=== PATIENT | male | born 1980 | race Caucasian/White ===

== ENCOUNTER 2017-06-02 02:28 | Emergency (ER) | payer SELFPAY ==
--- NOTE | 2017-06-02 02:52 | PDOC ---
History of Present Illness - General Stated Complaint: VOMITING Time Seen by Provider: 06/02/17 02:49 - History of Present Illness Initial Comments: 06/02/17 03:59 Patient is a 36-year-old male with past medical history of alcohol abuse, who presents to emergency department today complaining of nausea and vomiting. Patient states that he has been drinking heavily for the past 3 weeks and he tried to quit two days ago. He states that when he tried to quit he became very sweaty and had the shakes. To help relieve his symptoms he had tequila. His last drink was approximately an hour before arrival to the emergency department. He had one shot of tequila at that time. Admits to nausea, dry heaves, vomiting, feeling anxious and shaking. Denies hematemesis recent illness , diarrhea, constipation. Patient would like to quit drinking. Past History - Travel Traveled outside of the country in the last 30 days: No Close contact w/someone who was outside of country & ill: No - Past Medical History Allergies/Adverse Reactions: Allergies Allergy/AdvReac Type Severity Reaction Status Date / Time No Known Allergies Allergy Verified 06/02/17 02:59 Home Medications: Ambulatory Orders NK [No Known Home Medication] 04/30/16 Anemia: No Asthma: No Cancer: No Cardiac Disorders: No CVA: No COPD: No CHF: No Dementia: No Diabetes: No GI Disorders: No Disorders: No HTN: No Hypercholesterolemia: No Kidney Stones: No Liver Disease: No Seizures: No Thyroid Disease: No - Surgical History Abdominal Surgery: No Appendectomy: No Cardiac Surgery: No Cholecystectomy: No Lung Surgery: No Neurologic Surgery: No Orthopedic Surgery: No - Reproductive History Testicular Surgery: No - Immunization History Immunization Up to Date: Yes - Suicide/Smoking/Psychosocial Hx Smoking History: Never smoked Have you smoked in the past 12 months: No Hx Alcohol Use: Yes Drug/Substance Use Hx: No Substance Use Type: Alcohol Hx Substance Use Treatment: Yes Review of Systems - Review of Systems Able to Perform ROS?: Yes Comments:: 06/02/17 04:02 CONSTITUTIONAL: Absent: fever, chills, diaphoresis, generalized weakness, malaise, loss of appetite HEENT: Absent: rhinorrhea, nasal congestion, throat pain, throat swelling, difficulty swallowing, mouth swelling, ear pain, eye pain, visual Changes CARDIOVASCULAR: Absent: chest pain, loss of consciousness, palpitations, irregular heart rate, peripheral edema RESPIRATORY: Absent: cough, shortness of breath, dyspnea with exertion, orthopnea, wheezing, stridor, hemoptysis GASTROINTESTINAL: Present: abdominal pain, nausea, vomiting Absent: abdominal distension, nausea , vomiting, diarrhea, constipation, melena, hematochezia GENITOURINARY: Absent: dysuria, frequency, urgency, hesitancy, hematuria, flank pain, genital pain MUSCULOSKELETAL: Absent: myalgia, arthralgia, joint swelling SKIN: Absent: rash, itching, pallor NEUROLOGIC: Absent: headache, focal weakness or paresthesias, dizziness, unsteady gait, seizure, mental status changes, bladder or bowel incontinence PSYCHIATRIC: Present: anxiety Absent: depression, suicidal or homicidal ideation, hallucinations. Is the patient limited Kazakh proficient: No *Physical Exam - Physical Exam Comments: 06/02/17 04:02 GENERAL: Well developed, well nourished. Awake and alert. anxious on exam, shaking. HEENT: Normocephalic, atraumatic. PERRLA, EOMI. No conjunctival pallor. Sclera are non- icteric. Moist mucous membranes. Oropharynx is clear. NECK: Supple. Full ROM. No JVD. Carotid pulses 2+ and symmetric, without bruits. No thyromegaly. No lymphadenopathy. CARDIOVASCULAR: Regular rate and rhythm. No murmurs, rubs, or gallops. Distal pulses are 2+ and symmetric. PULMONARY: No evidence of respiratory distress. Lungs clear to auscultation bilaterally. No wheezing, rales or rhonchi. ABDOMINAL: Soft. diffuse tenderness with no focal findings. Non-distended. No rebound or guarding. No organomegaly. Normoactive bowel sounds. MUSCULOSKELETAL Normal range of motion at all joints. No bony deformities or tenderness. No CVA tenderness. EXTREMITIES: Tremulous with moderate shakiness of hands. No Asterixis. No cyanosis. No clubbing. No edema. No calf tenderness. SKIN: Palms slightly sweaty. Warm and dry. Normal capillary refill. No rashes. No jaundice. NEUROLOGICAL: Alert, awake, appropriate. Cranial nerves 2-12 intact. No deficits to light touch and temperature in face, upper extremities and lower extremities. No motor deficits in the in face, upper extremities and lower extremities. Normoreflexic in the upper and lower extremities. Normal speech. Toes are down- going bilaterally. Gait is normal without ataxia. PSYCHIATRIC: Cooperative. Good eye contact. Appropriate mood and affect. ED Treatment Course - LABORATORY CBC & Chemistry Diagram: 06/02/17 02:50 06/02/17 02:50 Medical Decision Making - Medical Decision Making 06/02/17 03:44 Patient is a 36-year-old male past medical history of alcohol abuse, who presents to the emergency department today for alcohol withdrawal. We will control symptoms at this time. We'll also draw basic labs to rule out potential pancreatitis, or other infectious causes. 1.CBC, CMP, alcohol level, UA, U tox 2.fluids, Zofran, Pepcid, Librium 50mg 3.reevaluate 06/02/17 04:21 Lab work unremarkable. Lipase within normal limits. No leukocytosis. Alcohol level is 53 at this time. Pt. appears to be resting comfortably in the ED 06/02/17 06:01 Called to pt. bedside. Pt. states that he feels more anxious and is still tremulous despite 50 of librium. Will give another 50 of librium PO and re- evaluate. *DC/Admit/Observation/Transfer - Discharge Dispostion Condition at time of disposition: Fair - Referrals Referrals: ON STAFF,NOT [Primary Care Provider] - - Patient Instructions - Post Discharge Activity CIWA Score - CIWA Score Nausea/Vomitin Muscle Tremors: 3 Anxiety: 2 Agitation: 0-Normal Activity Paroxysmal Sweats: 2 Orientation: 0-Oriented Tacttile Disturbances: 1-Very Mild Itch/Numbness Auditory Disturbances: 0-None Visual Disturbances: 0-None Headache: 2-Mild CIWA-Ar Total Score: 16
[2017-06-02] MEDS ORDERED: SODIUM CHLORIDE 1,000 ML IV STA (02:53)
[2017-06-02] MEDS ORDERED: ONDANSETRON 4 MG/2 ML VIAL IVPUSH ONE (02:53)
[2017-06-02] MEDS ORDERED: FAMOTIDINE IV 20 MG/12 ML VIAL IVPB ONE (02:54)
[2017-06-02 02:59] VITALS: BMI 28.2
[2017-06-02] MEDS ORDERED: ONDANSETRON 4 MG/2 ML VIAL ONE (03:04)
[2017-06-02] MEDS ORDERED: FAMOTIDINE 20 MG/50 ML IVPB 20 MG/50 ML MG IVPB ONE (03:04)
[2017-06-02 03:06] LABS: BASO % 0.4 % (0-2.0); EOS % 0.4 % (0-4.5); HEMATOCRIT 45.5 % (35.4-49); HEMOGLOBIN 15.6 GM/dL (11.7-16.9); LYMPH % 31.9 % (8-40); MCH 31.9 pg (25.7-33.7); MCHC 34.2 g/dl (32.0-35.9); MEAN CELL VOLUME 93.4 fl (80-96); MEAN PLT VOLUME 8.9 fl (7.5-11.1); MONO % 10.8 % (3.8-10.2); NEUT % 56.5 % (42.8-82.8); PLATELET COUNT 106 K/MM3 (134-434); RBC 4.87 M/mm3 (4.00-5.60); RDW 13.7 % (11.9-15.9); WHITE BLOOD COUNT 4.5 K/mm3 (4.0-10.0)
[2017-06-02 03:18] LABS: PROTHROMBIN TIME (PATIENT) 11.3 SEC (9.98-11.88)
[2017-06-02] MEDS ORDERED: chlordiazePOXIDE HCL 25 MG CAPSULE PO ONE ×2 (03:18→06:15)
[2017-06-02 03:28] LABS: ALBUMIN 4.8 g/dl (3.4-5.0); ANION GAP 15 (8-16); BILIRUBIN,TOTAL 1.6 mg/dL (0.2-1.0); BLOOD UREA NITROGEN 8 mg/dL (7-18); CHLORIDE 97 mmol/L (98-107); CO2 26 mmol/L (21-32); CREATININE 0.9 mg/dL (0.7-1.3); GLUCOSE,RANDOM 116 mg/dL (74-106); POTASSIUM 3.2 mmol/L (3.5-5.1); SGOT/AST 70 U/L (15-37); SGPT/ALT 67 U/L (12-78); SODIUM 138 mmol/L (136-145); TOT PROT 9.1 g/dl (6.4-8.2)
[2017-06-02 03:29] LABS: ALK PHOS 86 U/L (45-117)
--- NOTE | 2017-06-02 04:06 | PDOC ---
*Physical Exam - Vital Signs Last Vital Signs Temp Pulse Resp BP Pulse Ox 98.8 F 104 H 22 145/92 100 06/02/17 02:53 06/02/17 02:53 06/02/17 02:53 06/02/17 02:53 06/02/17 02:53 ED Treatment Course - LABORATORY CBC & Chemistry Diagram: 06/02/17 02:50 06/02/17 02:50 - ADDITIONAL ORDERS Additional order review: Laboratory Results 06/02/17 06/02/17 06/02/17 02:50 02:50 02:50 PT with INR INR Sodium 138 Potassium 3.2 L Chloride 97 L Carbon Dioxide 26 Anion Gap 15 BUN 8 D Creatinine 0.9 Creat Clearance w eGFR > 60 Random Glucose 116 H Calcium 9.0 Total Bilirubin 1.6 H D AST 70 H D ALT 67 D Alkaline Phosphatase 86 Total Protein 9.1 H D Albumin 4.8 D Lipase 201 Alcohol, Quantitative 53.4 H* 06/02/17 02:50 PT with INR 11.30 INR 1.00 Sodium Potassium Chloride Carbon Dioxide Anion Gap BUN Creatinine Creat Clearance w eGFR Random Glucose Calcium Total Bilirubin AST ALT Alkaline Phosphatase Total Protein Albumin Lipase Alcohol, Quantitative 06/02/17 02:50 RBC 4.87 MCV 93.4 MCHC 34.2 RDW 13.7 MPV 8.9 Neutrophils % 56.5 Lymphocytes % 31.9 Monocytes % 10.8 H D Eosinophils % 0.4 D Basophils % 0.4 - Medications Given in the ED: ED Medications Discontinued Medications Generic Name Dose Route Start Last Admin Trade Name Freq PRN Reason Stop Dose Admin Famotidine 20 mg in 12 mls @ 144 mls/hr 06/02/17 02:54 06/02/17 03:09 Pepcid 20 Mg/12 Ml Push IVPB 06/02/17 02:58 144 mls/hr ONCE ONE Administration Sodium Chloride 1,000 mls @ 1,000 mls/hr 06/02/17 02:53 06/02/17 03:09 Normal Saline - IV 06/02/17 03:52 1,000 mls/hr ASDIR STA Administration Ondansetron HCl 4 mg 06/02/17 02:53 06/02/17 03:09 Zofran Injection IVPUSH 06/02/17 02:54 4 mg ONCE ONE Administration Medical Decision Making - Medical Decision Making 06/02/17 04:05 Pt seen by the Advanced Practice Provider under my direct supervision Ancillary studies reviewed I agree with plan as outlined by the Advanced Practice Provider MARYJANE Robbins *DC/Admit/Observation/Transfer - Discharge Dispostion Condition at time of disposition: Fair - Referrals Referrals: ON STAFF,NOT [Primary Care Provider] - - Patient Instructions - Post Discharge Activity
[2017-06-02] MEDS ORDERED: chlordiazePOXIDE HCL 25 MG CAPSULE ONE ×2 (04:38→06:17)
[2017-06-02 05:35] LABS: URINE APPEARANCE CLEAR; URINE BILIRUBIN NEGATIVE (NEGATIVE); URINE BLOOD 1+ (NEGATIVE); URINE COLOR DKYELLOW; URINE GLUCOSE (UA) NEGATIVE (NEGATIVE); URINE KETONE 2+ (NEGATIVE); URINE LEUK ESTERASE NEGATIVE (NEGATIVE); URINE NITRITE NEGATIVE (NEGATIVE); URINE UROBILINOGEN 4.0 E.U/dl mg/dL (0.2-1.0)
[2017-06-02 05:40] LABS: URINE PROTEIN 2+ (NEGATIVE)
[2017-06-02 05:41] LABS: URINE MUCUS RARE
[2017-06-02 05:47] LABS: COCAINE, UR NEGATIVE ng/ml (CUTOFF=300); METHADONE, UR NEGATIVE ng/ml (CUTOFF=300); OPIATES, URI NEGATIVE ng/ml (CUTOFF=300); PHENCYCLIDINE,URINE NEGATIVE ng/ml (CUTOFF=25); URINE AMPHETAMINES NEGATIVE ng/ml (CUTOFF=500); URINE BARBITURATES NEGATIVE ng/ml (CUTOFF=200); URINE BENZODIAZEPINES NEGATIVE ng/ml (CUTOFF=200)
--- NOTE | 2017-06-02 07:59 | PDOC ---
ED Treatment Course - LABORATORY CBC & Chemistry Diagram: 06/02/17 02:50 06/02/17 02:50 - ADDITIONAL ORDERS Additional order review: Laboratory Results 06/02/17 06/02/17 06/02/17 05:17 05:17 02:50 PT with INR INR Sodium Potassium Chloride Carbon Dioxide Anion Gap BUN Creatinine Creat Clearance w eGFR Random Glucose Calcium Total Bilirubin AST ALT Alkaline Phosphatase Total Protein Albumin Lipase 201 Urine Color Dkyellow Urine Appearance Clear Urine pH 6.0 Ur Specific [place] 1.027 Urine Protein 2+ H Urine Glucose (UA) Negative Urine Ketones 2+ H Urine Blood 1+ H Urine Nitrite Negative Urine Bilirubin Negative Urine Urobilinogen 4.0 e.u/dl Ur Leukocyte Esterase Negative Urine WBC (Auto) 1 Urine RBC (Auto) 16 Urine Mucus Rare Opiates Screen Negative Methadone Screen Negative Barbiturate Screen Negative Phencyclidine Screen Negative Ur Amphetamines Screen Negative MDMA (Ecstasy) Screen Negative Benzodiazepines Screen Negative Cocaine Screen Negative U Marijuana (THC) Screen Negative Alcohol, Quantitative 06/02/17 06/02/17 06/02/17 02:50 02:50 02:50 PT with INR 11.30 INR 1.00 Sodium 138 Potassium 3.2 L Chloride 97 L Carbon Dioxide 26 Anion Gap 15 BUN 8 D Creatinine 0.9 Creat Clearance w eGFR > 60 Random Glucose 116 H Calcium 9.0 Total Bilirubin 1.6 H D AST 70 H D ALT 67 D Alkaline Phosphatase 86 Total Protein 9.1 H D Albumin 4.8 D Lipase Urine Color Urine Appearance Urine pH Ur Specific [place] Urine Protein Urine Glucose (UA) Urine Ketones Urine Blood Urine Nitrite Urine Bilirubin Urine Urobilinogen Ur Leukocyte Esterase Urine WBC (Auto) Urine RBC (Auto) Urine Mucus Opiates Screen Methadone Screen Barbiturate Screen Phencyclidine Screen Ur Amphetamines Screen MDMA (Ecstasy) Screen Benzodiazepines Screen Cocaine Screen U Marijuana (THC) Screen Alcohol, Quantitative 53.4 H* 06/02/17 02:50 RBC 4.87 MCV 93.4 MCHC 34.2 RDW 13.7 MPV 8.9 Neutrophils % 56.5 Lymphocytes % 31.9 Monocytes % 10.8 H D Eosinophils % 0.4 D Basophils % 0.4 - Medications Given in the ED: ED Medications Discontinued Medications Generic Name Dose Route Start Last Admin Trade Name Freq PRN Reason Stop Dose Admin Chlordiazepoxide HCl 50 mg 06/02/17 03:18 06/02/17 04:42 Librium - PO 06/02/17 03:19 50 mg ONCE ONE Administration Chlordiazepoxide HCl 50 mg 06/02/17 06:15 06/02/17 06:21 Librium - PO 06/02/17 06:16 50 mg ONCE ONE Administration Famotidine 20 mg in 12 mls @ 144 mls/hr 06/02/17 02:54 06/02/17 03:09 Pepcid 20 Mg/12 Ml Push IVPB 06/02/17 02:58 144 mls/hr ONCE ONE Administration Sodium Chloride 1,000 mls @ 1,000 mls/hr 06/02/17 02:53 06/02/17 03:09 Normal Saline - IV 06/02/17 03:52 1,000 mls/hr ASDIR STA Administration Ondansetron HCl 4 mg 06/02/17 02:53 06/02/17 03:09 Zofran Injection IVPUSH 06/02/17 02:54 4 mg ONCE ONE Administration Progress Note - Progress Note Progress Note: I have received report from MARYJANE Robbins regarding this patient. Pt's initial chief complaint: nausea, vomiting, anxiety and shaking Pt's work up completed prior to sign out: labs, EKG Pt treatment given from prior staff: IV fluids, zofran, librium Pt plan to be completed: reassess Dispo: admit vs [facility] Medical Decision Making - Medical Decision Making A/p: 36 y/o male with PMH ETOH abuse c/o nausea, vomiting, anxiety and shaking. Pt was initially evaluated by MARYJANE Robbins. Gave 2nd dose of librium and must reassess. Admit for withdrawal vs discharge to [facility]. Patient states he feels better and is only mildly tremulous. Wants to go to [facility]. Gait is steady. Vital signs ok. [facility] with [facility] they do have a bed and will accept him. Will discharge and have security take him to [facility]. *DC/Admit/Observation/Transfer Diagnosis at time of Disposition: Alcohol abuse - Discharge Dispostion Disposition: HOME Condition at time of disposition: Improved - Referrals Referrals: ON STAFF,NOT [Primary Care Provider] - - Patient Instructions Printed Discharge Instructions: DI for Alcohol Abuse - Post Discharge Activity
--- NOTE | 2017-06-02 09:57 | EKG ---
Test Reason : Blood Pressure : / mmHG Vent. Rate : 080 BPM Atrial Rate : 080 BPM P-R Int : 192 ms QRS Dur : 094 ms QT Int : 386 ms P-R-T Axes : 050 060 046 degrees QTc Int : 445 ms NORMAL SINUS RHYTHM NORMAL ECG WHEN COMPARED WITH ECG OF 29-JUL-2016 11:43, NO SIGNIFICANT CHANGE WAS FOUND Confirmed by ANEUDY GONZALES MD ([id number]) on 06/02/2017 9:57:30 AM Referred By: Confirmed By:ANEUDY GONZALES MD
[2017-06-02 10:01] VITALS: BP 133/83; PULSE 84; TEMP 97
== END 2017-06-02 11:47 | disposition home or self-care (01) ==
LOC: SUPCPDRO 02:28 → JER 02:28
PROC: 3E033GC Introduction of Other Therapeutic Substance into Peripheral Vein, Percutaneous Approach (ICD-10-PCS; principal; 2017-06-02)
PROC: 3E0337Z Introduction of Electrolytic and Water Balance Substance into Peripheral Vein, Percutaneous Approach (ICD-10-PCS; 2017-06-02)
DX: F10.10 Alcohol abuse, uncomplicated (principal)
CPT/HCPCS: 36415; 80053; 80307; 81003; 81015; 83690; 85025; 85610; 93005; 93010; 99283-25

== ENCOUNTER 2017-07-18 23:14 | Emergency (ER) | payer SELFPAY ==
[2017-07-18 23:28] VITALS: BP 174/98; TEMP 98.1; BMI 28.2
--- NOTE | 2017-07-19 00:48 | PDOC ---
History of Present Illness - General Chief Complaint: Nausea/Vomiting Stated Complaint: VOMITING Time Seen by Provider: 07/19/17 00:36 History Source: Patient Exam Limitations: No Limitations - History of Present Illness Initial Comments: CHIEF COMPLAINT: 36 y/o afebrile male with PMH ETOH abuse c/o nausea, vomiting and shaking. HISTORY OF PRESENT ILLNESS: the patient states he's been drinking every day for 2 weeks. This morning, after 2 beers, he began vomiting and having abdominal pain. He was seen at [facility] where they gave him zofran and discharged him. He states he went home and tried to have soup and vomited again. He then drank another beer to try to stop his shakes. He denies fever, JERRY, CP, SOB, hematuria, dysuria. Vital signs on arrival are notable for pulse of 125. REVIEW OF SYSTEMS: GENERAL/CONSTITUTIONAL: No fever/chills. No weakness. No weight change. HEAD, EYES, EARS, NOSE AND THROAT: No change in vision. No ear pain or discharge. No sore throat. CARDIOVASCULAR: No chest pain or shortness of breath. RESPIRATORY: No cough, wheezing, or hemoptysis. GASTROINTESTINAL: +abdominal pain, nausea, vomiting. GENITOURINARY: No dysuria, frequency, or change in urination. MUSCULOSKELETAL: No joint or muscle swelling or pain. No neck or back pain. SKIN: No rash or easy bruising. NEUROLOGIC: +shaking. No headache, vertigo, loss of consciousness, or loss of sensation. PHYSICAL EXAM: GENERAL: The patient is awake, alert, and fully oriented, in no acute distress. he is tremulous HEAD: Normal with no signs of trauma. ENT: Pupils equal, round and reactive to light, extraocular movements intact, sclera anicteric, conjunctiva clear. Neck supple. LUNGS: Clear to auscultation bilaterally. Normal excursion. No respiratory distress or use of accessory muscles. CV: RRR, S1/S2, no MRG. Cap refill < 2 sec. ABDOMEN: Soft, non-distended, diffusely TTP without focal tenderness. No rebound, guarding or rigidity. EXTREMITIES: Normal range of motion, no edema. NEUROLOGICAL: Tremulous upper extremities. Normal speech, normal gait. CN II- XII grossly intact. PSYCH: Normal mood, normal affect. SKIN: Warm, dry, normal turgor, no rashes or lesions noted. Past History - Past Medical History Allergies/Adverse Reactions: Allergies Allergy/AdvReac Type Severity Reaction Status Date / Time No Known Allergies Allergy Verified 07/18/17 23:25 Home Medications: Ambulatory Orders NK [No Known Home Medication] 04/30/16 Anemia: No Asthma: No Cancer: No Cardiac Disorders: No CVA: No COPD: No CHF: No Dementia: No Diabetes: No GI Disorders: No Disorders: No HTN: No Hypercholesterolemia: No Kidney Stones: No Liver Disease: No Seizures: No Thyroid Disease: No Other medical history: Pt denies - Surgical History Abdominal Surgery: No Appendectomy: No Cardiac Surgery: No Cholecystectomy: No Lung Surgery: No Neurologic Surgery: No Orthopedic Surgery: No - Reproductive History Testicular Surgery: No - Immunization History Immunization Up to Date: Yes - Suicide/Smoking/Psychosocial Hx Smoking History: Never smoked Have you smoked in the past 12 months: No Information on smoking cessation initiated: No Hx Alcohol Use: Yes Drug/Substance Use Hx: No Substance Use Type: Alcohol Hx Substance Use Treatment: Yes *Physical Exam - Vital Signs Last Vital Signs Temp Pulse Resp BP Pulse Ox 98.1 F 125 H 20 174/98 98 07/18/17 23:25 07/18/17 23:25 07/18/17 23:25 07/18/17 23:25 07/18/17 23:25 ED Treatment Course - LABORATORY CBC & Chemistry Diagram: 07/19/17 01:22 07/19/17 01:22 Medical Decision Making - Medical Decision Making A/P: 36 y/o male, known alcoholic, c/o nausea, vomiting and shaking today. Plan is as follows: 1. Labs 2. UA/utox, ETOH 3. IV fluids 4. IV zofran, pepcid 5. PO librium Labs ok. Patient had second dose of librium. No longer shaking. He states he feels better. Will discharge to home. Pt instructed to stop drinking. Suggested he return to the ER with any worsening or concerning symptoms. The patient verbalizes understanding of all instructions, has no further questions and is awaiting discharge. *DC/Admit/Observation/Transfer Diagnosis at time of Disposition: Alcohol dependence with uncomplicated withdrawal - Discharge Dispostion Disposition: HOME Condition at time of disposition: Improved - Referrals - Patient Instructions Printed Discharge Instructions: DI for Alcoholic Gastritis, [place] Diet Additional Instructions: Discharge Instructions: -Eat bland food and avoid drinking alcohol until you are feeling better -Return to the ER immediately with any worsening or concerning symptoms Print Language: TURKMEN - Post Discharge Activity
[2017-07-19] MEDS ORDERED: ONDANSETRON 4 MG/2 ML VIAL IVPUSH ONE (00:50)
[2017-07-19] MEDS ORDERED: SODIUM CHLORIDE 1,000 ML IV STA (00:50)
[2017-07-19] MEDS ORDERED: FAMOTIDINE IV 20 MG/12 ML VIAL IVPUSH ONE (00:51)
[2017-07-19] MEDS ORDERED: chlordiazePOXIDE HCL 25 MG CAPSULE PO ONE ×2 (01:00→03:14)
[2017-07-19] MEDS ORDERED: ONDANSETRON 4 MG/2 ML VIAL ONE (01:06)
[2017-07-19] MEDS ORDERED: chlordiazePOXIDE HCL 25 MG CAPSULE ONE ×2 (01:06→03:58)
[2017-07-19] MEDS ORDERED: FAMOTIDINE 20 MG/50 ML IVPB 20 MG/50 ML MG IVPB ONE (01:06)
[2017-07-19 01:28] LABS: BASO % 0.7 % (0-2.0); EOS % 0.6 % (0-4.5); HEMATOCRIT 42.8 % (35.4-49); LYMPH % 12.2 % (8-40); MCH 33.1 pg (25.7-33.7); MEAN CELL VOLUME 94.7 fl (80-96); MEAN PLT VOLUME 9.1 fl (7.5-11.1); MONO % 12.4 % (3.8-10.2); NEUT % 74.1 % (42.8-82.8); PLATELET COUNT 87 K/MM3 (134-434); RBC 4.52 M/mm3 (4.00-5.60); RDW 15.3 % (11.9-15.9); WHITE BLOOD COUNT 3.5 K/mm3 (4.0-10.0)
--- NOTE | 2017-07-19 01:39 | PDOC ---
*Physical Exam - Vital Signs Last Vital Signs Temp Pulse Resp BP Pulse Ox 98.1 F 125 H 20 174/98 98 07/18/17 23:25 07/18/17 23:25 07/18/17 23:25 07/18/17 23:25 07/18/17 23:25 ED Treatment Course - LABORATORY CBC & Chemistry Diagram: 07/19/17 01:22 07/19/17 01:22 - ADDITIONAL ORDERS Additional order review: 07/19/17 01:22 RBC 4.52 MCV 94.7 MCHC 35.0 RDW 15.3 D MPV 9.1 Neutrophils % 74.1 D Lymphocytes % 12.2 D Monocytes % 12.4 H Eosinophils % 0.6 Basophils % 0.7 - Medications Given in the ED: ED Medications Discontinued Medications Generic Name Dose Route Start Last Admin Trade Name Farhatq PRN Reason Stop Dose Admin Chlordiazepoxide HCl 50 mg 07/19/17 01:00 07/19/17 01:28 Librium - PO 07/19/17 01:01 50 mg ONCE ONE Administration Famotidine 20 mg in 12 mls @ 144 mls/hr 07/19/17 00:51 07/19/17 01:29 Pepcid 20 Mg/12 Ml Push IVPUSH 07/19/17 00:55 144 mls/hr ONCE ONE Administration Ondansetron HCl 4 mg 07/19/17 00:50 07/19/17 01:29 Zofran Injection IVPUSH 07/19/17 00:51 4 mg ONCE ONE Administration Medical Decision Making - Medical Decision Making 07/19/17 01:39 agree with care from MARYJANE Villar *DC/Admit/Observation/Transfer Diagnosis at time of Disposition: Alcohol dependence with uncomplicated withdrawal - Discharge Dispostion Disposition: HOME Condition at time of disposition: Improved - Referrals - Patient Instructions Printed Discharge Instructions: Peculiar Diet, DI for Alcoholic Gastritis Additional Instructions: Discharge Instructions: -Eat bland food and avoid drinking alcohol until you are feeling better -Return to the ER immediately with any worsening or concerning symptoms Print Language: BURUNDIAN - Post Discharge Activity
[2017-07-19 01:54] LABS: ALBUMIN 4.6 g/dl (3.4-5.0); ANION GAP 13 (8-16); BILIRUBIN,TOTAL 1.2 mg/dL (0.2-1.0); BLOOD UREA NITROGEN 6 mg/dL (7-18); CALCIUM 9.3 mg/dL (8.5-10.1); CHLORIDE 96 mmol/L (98-107); CO2 30 mmol/L (21-32); CREATININE 0.8 mg/dL (0.7-1.3); GLUCOSE,RANDOM 93 mg/dL (74-106); POTASSIUM 3.3 mmol/L (3.5-5.1); SGOT/AST 99 U/L (15-37); SGPT/ALT 90 U/L (12-78); SODIUM 139 mmol/L (136-145); TOT PROT 8.8 g/dl (6.4-8.2)
[2017-07-19 01:55] LABS: ALK PHOS 88 U/L (45-117)
[2017-07-19 01:59] LABS: LIPASE 290 U/L (73-393)
[2017-07-19] MEDS ORDERED: POTASSIUM CHLORIDE TABS 20 MEQ TABLET.ER (FP) PO ONE ×2 (02:31→02:43)
[2017-07-19 06:43] LABS: URINE APPEARANCE CLEAR; URINE BILIRUBIN NEGATIVE (NEGATIVE); URINE BLOOD NEGATIVE (NEGATIVE); URINE COLOR YELLOW; URINE GLUCOSE (UA) NEGATIVE (NEGATIVE); URINE KETONE 1+ (NEGATIVE); URINE LEUK ESTERASE NEGATIVE (NEGATIVE); URINE NITRITE NEGATIVE (NEGATIVE); URINE PROTEIN NEGATIVE (NEGATIVE); URINE UROBILINOGEN 4.0 E.U/dl mg/dL (0.2-1.0)
[2017-07-19 06:48] VITALS: PULSE 75
[2017-07-19 06:55] LABS: COCAINE, UR NEGATIVE ng/ml (CUTOFF=300); METHADONE, UR NEGATIVE ng/ml (CUTOFF=300); OPIATES, URI NEGATIVE ng/ml (CUTOFF=300); PHENCYCLIDINE,URINE NEGATIVE ng/ml (CUTOFF=25); URINE AMPHETAMINES NEGATIVE ng/ml (CUTOFF=500); URINE BARBITURATES NEGATIVE ng/ml (CUTOFF=200); URINE BENZODIAZEPINES POSITIVE ng/ml (CUTOFF=200)
== END 2017-07-19 07:01 | disposition home or self-care (01) ==
LOC: JER 23:14
PROC: 3E033GC Introduction of Other Therapeutic Substance into Peripheral Vein, Percutaneous Approach (ICD-10-PCS; principal; 2017-07-18)
PROC: 3E033GC Introduction of Other Therapeutic Substance into Peripheral Vein, Percutaneous Approach (ICD-10-PCS; 2017-07-18)
DX: K29.20 Alcoholic gastritis without bleeding (principal); F10.230 Alcohol dependence with withdrawal, uncomplicated
CPT/HCPCS: 36415; 80053; 80307; 81003; 83690; 85025; 99282-25; J7030

== ENCOUNTER 2018-03-26 07:37 | Inpatient (IN) | payer OTHER ==
[2018-03-26] MEDS ORDERED: ONDANSETRON 4 MG/2 ML VIAL IVPUSH ONE (08:11)
[2018-03-26] MEDS ORDERED: SODIUM CHLORIDE 0.9% 1000 ML INFUS.BAG IV ONE (08:11)
[2018-03-26] MEDS ORDERED: ACETAMINOPHEN 1000 MG/100 ML VIAL (NON FORMULARY) IVPB ONE (08:11)
[2018-03-26] MEDS ORDERED: ONDANSETRON 4 MG/2 ML VIAL ONE (08:35)
[2018-03-26] MEDS ORDERED: ACETAMINOPHEN INJECTION 100 ML IVPB ONE (08:35)
--- NOTE | 2018-03-26 08:36 | PDOC ---
History of Present Illness - General Chief Complaint: Nausea/Vomiting Stated Complaint: Nausea/Vomiting Time Seen by Provider: 03/26/18 08:11 - History of Present Illness Initial Comments: 03/26/18 09:35 37 years old past medical history significant for alcohol abuse presents to the emergency department with 2 day history of epigastric discomfort nausea vomiting and inability to tolerate fluids. Symptoms started yesterday evening try to drink one beer this morning but was unable to alleviate his symptoms began to feel diaphoretic tremulous. Positive history of withdrawal with hallucinations in the past. Patient is interested in detox after this illness Symptoms are persistent concent moderate in severity with no alleviating factors. Positive history of same in the past Past History - Past Medical History Allergies/Adverse Reactions: Allergies Allergy/AdvReac Type Severity Reaction Status Date / Time No Known Allergies Allergy Verified 07/18/17 23:25 Home Medications: Ambulatory Orders NK [No Known Home Medication] 04/30/16 Anemia: No Asthma: No Cancer: No Cardiac Disorders: No CVA: No COPD: No CHF: No Dementia: No Diabetes: No GI Disorders: No Disorders: No HTN: No Hypercholesterolemia: No Kidney Stones: No Liver Disease: No Seizures: No Thyroid Disease: No - Surgical History Abdominal Surgery: No Appendectomy: No Cardiac Surgery: No Cholecystectomy: No Lung Surgery: No Neurologic Surgery: No Orthopedic Surgery: No - Reproductive History Testicular Surgery: No - Immunization History Immunization Up to Date: Yes - Suicide/Smoking/Psychosocial Hx Smoking History: Never smoked Have you smoked in the past 12 months: No Hx Alcohol Use: No Drug/Substance Use Hx: No Substance Use Type: Alcohol Hx Substance Use Treatment: Yes Review of Systems - Review of Systems Comments:: 03/26/18 09:35 ROS: A complete review of 10 out of 10 review of systems is taken and is negative apart from what is previously mentioned below and in the HPI. *Physical Exam - Vital Signs Last Vital Signs Temp Pulse Resp BP Pulse Ox 98.3 F 106 H 16 138/87 98 03/26/18 07:43 03/26/18 07:43 03/26/18 07:43 03/26/18 07:43 03/26/18 07:43 - Physical Exam Comments: 03/26/18 09:35 Vitals: Triage Vital signs reviewed General Appearance: no acute distress, well nourished well developed, Head: Atraumatic, Eyes: Pupils equal reactive round, extraocular movement intact Neck: Supple;No Nucal rigidity Chest Wall: Nontender Cardiac: Regular rate and rhythym, no murmurs, no rubs, no gallops, Lungs: Clear to auscultation bilateral, good air movement bilaterally, Abdomen: Soft, non distended, normal bowel sounds, non tender to palpation Extremities: Full range of motion to all extremities, no cyanosis, clubbing, or edema Skin: Warm and dry, no rashes or lesions, no rash, no petechiae Neuro: AOX3; Cranial Nerves 2-12 grossly intact, Strength intact to all extremities, Sensation intact to all extremities,gait normal, + hand tremors Psych: normal mood, normal affect ED Treatment Course - LABORATORY CBC & Chemistry Diagram: 03/26/18 08:57 03/26/18 08:57 Medical Decision Making - Medical Decision Making 03/26/18 15:55 History and examination consistent with viral GI illness complicated by acute alcohol withdrawal Status post IV fluids Zofran and Ativan for withdrawal patient feels much better. Patient initially in alcohol withdrawal with CIWA scale of 16 status post 1 mg Ativan 1 hour later on reevaluation CIWA scale of 8 Given nausea vomiting inability to tolerate fluids complicated by acute alcohol withdrawal requiring IV medications we'll admit to hospitalist for further management. Patient interested in detox. Please consider candidate for detox after medically stable. *DC/Admit/Observation/Transfer Diagnosis at time of Disposition: Alcohol dependence with uncomplicated withdrawal - Discharge Dispostion Condition at time of disposition: Fair Decision to Admit order: Yes - Referrals - Patient Instructions - Post Discharge Activity
[2018-03-26] MEDS ORDERED: FAMOTIDINE 20 MG/50 ML IVPB 20 MG/50 ML MG IVPB ONE (08:56)
[2018-03-26] MEDS ORDERED: LORazepam 2 MG/ML SDV VIAL ONE (09:06)
[2018-03-26 09:09] LABS: BASO % 0.5 % (0-2.0); EOS % 0.3 % (0-4.5); LYMPH % 13.4 % (8-40); MCH 32.4 pg (25.7-33.7); MCHC 34.1 g/dl (32.0-35.9); MEAN PLT VOLUME 9.3 fl (7.5-11.1); MONO % 7.3 % (3.8-10.2); NEUT % 78.5 % (42.8-82.8); PLATELET COUNT 93 K/MM3 (134-434); RBC 4.64 M/mm3 (4.00-5.60); RDW 13.7 % (11.9-15.9); WHITE BLOOD COUNT 4.6 K/mm3 (4.0-10.0)
[2018-03-26] MEDS: FAMOTIDINE 20 MG/50 ML IVPB 20 MG/50 ML MG IVPB SCH ×2 (09:12→21:36)
[2018-03-26 09:44] LABS: ALBUMIN 4.4 g/dl (3.4-5.0); ALK PHOS 101 U/L (45-117); ANION GAP 11 MMOL/L (8-16); BILIRUBIN,TOTAL 0.8 mg/dL (0.2-1); BLOOD UREA NITROGEN 7 mg/dL (7-18); CALCIUM 8.4 mg/dL (8.5-10.1); CHLORIDE 102 mmol/L (98-107); CO2 26 mmol/L (21-32); CREATININE 0.8 mg/dL (0.55-1.3); GLUCOSE,RANDOM 104 mg/dL (74-106); POTASSIUM 3.3 mmol/L (3.5-5.1); SGOT/AST 105 U/L (15-37); SGPT/ALT 101 U/L (13-61); SODIUM 139 mmol/L (136-145); TOT PROT 8.2 g/dl (6.4-8.2)
[2018-03-26] MEDS ORDERED: ACETAMINOPHEN 325 MG TABLET (FP) PO PRN (16:55)
[2018-03-26] MEDS ORDERED: ONDANSETRON 4 MG/2 ML VIAL IVPUSH PRN (16:55)
--- NOTE | 2018-03-26 17:00 | HP ---
Admitting History and Physical - Primary Care Physician PCP: Chanelle Manzano - Admission History of Present Illness: 37 years old past medical history significant for alcohol abuse presents to the emergency department with 2 day history of epigastric discomfort nausea vomiting and inability to tolerate fluids. Symptoms started yesterday evening try to drink one beer this morning but was unable to alleviate his symptoms began to feel diaphoretic tremulous. wants to go for detox - Past Medical History Psych: Yes: Addictions - Past Surgical History Past Surgical History: Yes: None - Smoking History Smoking history: Never smoked Have you smoked in the past 12 months: No - Alcohol/Substance Use Hx Alcohol Use: No History of Substance Use: reports: None - Social History ADL: Independent History of Recent Travel: No Home Medications - Allergies Allergies/Adverse Reactions: Allergies Allergy/AdvReac Type Severity Reaction Status Date / Time No Known Allergies Allergy Verified 07/18/17 23:25 - Home Medications Home Medications: Ambulatory Orders NK [No Known Home Medication] 04/30/16 Family Disease History - Family Disease History Family Disease History: Heart Disease: Father (ALCOHOL), Other: Father, Mother ( alcohol) Review of Systems - Review of Systems Gastrointestinal: reports: Abdominal Pain, Nausea, Vomiting Physical Examination Vital Signs: Vital Signs Temperature 97.8 F 03/26/18 15:52 Pulse Rate 84 03/26/18 15:52 Respiratory Rate 18 03/26/18 15:52 Blood Pressure 128/87 03/26/18 15:52 O2 Sat by Pulse Oximetry (%) 97 03/26/18 15:52 Constitutional: Yes: No Distress HENT: Yes: Atraumatic Neck: Yes: Supple Cardiovascular: Yes: Regular Rate and Rhythm Respiratory: Yes: CTA Bilaterally Gastrointestinal: Yes: Normal Bowel Sounds Extremities: Yes: WNL Edema: No Neurological: Yes: Alert, Oriented Labs: CBC, BMP 03/26/18 08:57 03/26/18 08:57 Problem List - Problems (1) Abdominal pain Assessment/Plan: better now on protonix fu labs Code(s): R10.9 - UNSPECIFIED ABDOMINAL PAIN (2) Alcohol abuse Assessment/Plan: will get detox consult start librium Code(s): F10.10 - ALCOHOL ABUSE, UNCOMPLICATED Assessment/Plan Laboratory Tests 03/26/18 03/26/18 08:57 08:57 WBC 4.6 RBC 4.64 Hgb 15.0 Hct 44.0 MCV 95.0 MCH 32.4 MCHC 34.1 RDW 13.7 D Plt Count 93 L MPV 9.3 Absolute Neuts (auto) 3.6 Neutrophils % 78.5 Lymphocytes % 13.4 Monocytes % 7.3 Eosinophils % 0.3 Basophils % 0.5 Nucleated RBC % 0 Sodium 139 Potassium 3.3 L Chloride 102 Carbon Dioxide 26 Anion Gap 11 BUN 7 Creatinine 0.8 Creat Clearance w eGFR > 60 Random Glucose 104 Calcium 8.4 L Total Bilirubin 0.8 AST 105 H ALT 101 H Alkaline Phosphatase 101 Total Protein 8.2 Albumin 4.4 Active Medications Generic Name Dose Route Start Last Admin Trade Name Freq PRN Reason Stop Dose Admin Acetaminophen 650 mg 03/26/18 16:55 Tylenol - PO Q6H PRN FEVER Famotidine/Sodium Chloride 20 mg in 50 mls @ 100 mls/hr 03/26/18 10:00 09:12 Pepcid 20 Mg Premixed Ivpb - IVPB 100 mls/hr BID CLARI Administration Ondansetron HCl 4 mg 03/26/18 16:55 Zofran Injection IVPB Q4H PRN NAUSEA AND/OR VOMITING Active Medications Generic Name Dose Route Start Last Admin Trade Name Freq PRN Reason Stop Dose Admin Acetaminophen 650 mg 03/26/18 16:55 Tylenol - PO Q6H PRN FEVER Chlordiazepoxide HCl 50 mg 03/26/18 23:00 03/27/18 17:25 Librium - PO 50 mg [id number] CLARI Administration Famotidine/Sodium Chloride 20 mg in 50 mls @ 100 mls/hr 03/26/18 10:00 09:47 Pepcid 20 Mg Premixed Ivpb - IVPB 100 mls/hr BID CLARI Administration Ondansetron HCl 4 mg 03/26/18 16:55 Zofran Injection IVPUSH Q4H PRN NAUSEA AND/OR VOMITING
[2018-03-26 18:05] VITALS: BMI 27.8
[2018-03-26] MEDS: chlordiazePOXIDE HCL 25 MG CAPSULE PO SCH (22:38)
[2018-03-27] MEDS: chlordiazePOXIDE HCL 25 MG CAPSULE PO SCH ×4 (05:10→23:09)
[2018-03-27 07:45] LABS: BASO % 0.6 % (0-2.0); HEMATOCRIT 41.7 % (35.4-49); HEMOGLOBIN 15.1 GM/dL (11.7-16.9); LYMPH % 19.8 % (8-40); MCH 34.3 pg (25.7-33.7); MCHC 36.2 g/dl (32.0-35.9); MEAN CELL VOLUME 94.7 fl (80-96); MEAN PLT VOLUME 9.5 fl (7.5-11.1); MONO % 12.4 % (3.8-10.2); NEUT % 65.2 % (42.8-82.8); PLATELET COUNT 102 K/MM3 (134-434); RDW 13.8 % (11.9-15.9); WHITE BLOOD COUNT 4.5 K/mm3 (4.0-10.0)
[2018-03-27 07:59] LABS: AMYLASE 54 U/L (25-115); LIPASE 272 U/L (73-393)
[2018-03-27 08:10] LABS: ALBUMIN 3.8 g/dl (3.4-5.0); ALK PHOS 77 U/L (45-117); ANION GAP 8 MMOL/L (8-16); BILIRUBIN,TOTAL 1.4 mg/dL (0.2-1); BLOOD UREA NITROGEN 10 mg/dL (7-18); CALCIUM 8.7 mg/dL (8.5-10.1); CHLORIDE 101 mmol/L (98-107); CO2 28 mmol/L (21-32); CREATININE 0.9 mg/dL (0.55-1.3); GLUCOSE,RANDOM 94 mg/dL (74-106); POTASSIUM 3.6 mmol/L (3.5-5.1); SGOT/AST 76 U/L (15-37); SGPT/ALT 89 U/L (13-61); SODIUM 137 mmol/L (136-145); TOT PROT 7.6 g/dl (6.4-8.2)
--- NOTE | 2018-03-27 08:38 | PN ---
[facility] Progress Note (SOAP) Subjective: [facility] addiction medicine consult : 37 y.o. male patient referred for etoh abuse, reports use since age 21 , with intermittent periods of sobriety, most recently x 2 months , s/p relapse 2 weeks ago , detox x1 prior many years ago , current daily use 1 bottle of vodka and several beers, starts drinking in the morning to stop tremors , denies seizures if not drinking , no blackouts, no injuries to self or others, denies illicits . Reports triggers are : work situation . Patient was given Ativan in ER , and currently on Chlordiazepoxide 50 mg q 6 hrs . 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 Patient at this time reports feeling better , denies nausea, vomiting , tremors , + diarrhea. Chart reviewed . / Objective: wnwd 03/27/18 08:38 Vital Signs - 24 hr 03/26/18 03/26/18 03/26/18 10:20 15:52 18:08 Temperature 97.9 F 97.8 F Pulse Rate 77 Pulse Rate [ 84 Right Radial] Respiratory 20 18 Rate Blood Pressure 145/86 Blood Pressure 128/87 [Left Arm] O2 Sat by Pulse 97 98 Oximetry (%) 03/26/18 03/27/18 21:00 06:00 Temperature 98.1 F Pulse Rate 83 Pulse Rate [ Right Radial] Respiratory 20 Rate Blood Pressure 101/66 Blood Pressure [Left Arm] O2 Sat by Pulse 100 Oximetry (%) 03/27/18 08:39 Abnormal Lab Results 03/26/18 03/26/18 03/27/18 08:57 08:57 06:30 MCH 34.3 H MCHC 36.2 H Plt Count 93 L 102 L Monocytes % 12.4 H Potassium 3.3 L Calcium 8.4 L Total Bilirubin AST 105 H ALT 101 H 03/27/18 06:30 MCH MCHC Plt Count Monocytes % Potassium Calcium Total Bilirubin 1.4 H AST 76 H ALT 89 H Assessment: 03/27/18 08:40 Alcohol dependence / withdrawal Plan: recommend to continue taper : Chlordiazepoxide 50 mg q 6 hrs x 4 doses, then 25 mg q 6 hrs x 4 doses , then 10 mg q 6 hrs x 4 doses then d/c chlordiazepoxide. Suggest d/c acetaminophen in this patient with etoh abuse and elevated LFTs.
[2018-03-27] MEDS: FAMOTIDINE 20 MG/50 ML IVPB 20 MG/50 ML MG IVPB SCH ×2 (09:47→23:08)
--- NOTE | 2018-03-27 18:05 | PN ---
Progress Note, Physician - Current Medication List Current Medications: Active Medications Acetaminophen (Tylenol -) 650 mg PO Q6H PRN PRN Reason: FEVER Chlordiazepoxide HCl (Librium -) 50 mg PO [id number] [facility] Last Admin: 03/27/18 17:25 Dose: 50 mg Chlordiazepoxide HCl (Librium -) 25 mg PO [id number] CLARI Famotidine/Sodium Chloride (Pepcid 20 Mg Premixed Ivpb -) 20 mg in 50 mls @ 100 mls/hr IVPB BID CLARI Last Admin: 03/27/18 09:47 Dose: 100 mls/hr Ondansetron HCl (Zofran Injection) 4 mg IVPUSH Q4H PRN PRN Reason: NAUSEA AND/OR VOMITING - Objective Vital Signs: Vital Signs Temperature 98.1 F 03/27/18 16:54 Pulse Rate 81 03/27/18 16:54 Respiratory Rate 20 03/27/18 16:54 Blood Pressure 109/65 03/27/18 16:54 O2 Sat by Pulse Oximetry (%) 100 03/27/18 09:00 Constitutional: Yes: No Distress HENT: Yes: Atraumatic Neck: Yes: Supple Cardiovascular: Yes: Regular Rate and Rhythm Respiratory: Yes: CTA Bilaterally Gastrointestinal: Yes: Normal Bowel Sounds Extremities: Yes: WNL Edema: No Peripheral Pulses WNL: Yes Neurological: Yes: Alert, Oriented Labs: CBC, BMP 03/27/18 06:30 03/27/18 06:30 Problem List - Problems (1) Abdominal pain Assessment/Plan: better now on protonix Code(s): R10.9 - UNSPECIFIED ABDOMINAL PAIN (2) Alcohol abuse Assessment/Plan: detox consult noted on libriun Code(s): F10.10 - ALCOHOL ABUSE, UNCOMPLICATED
[2018-03-28] MEDS: chlordiazePOXIDE HCL 25 MG CAPSULE PO SCH ×3 (05:04→16:55)
[2018-03-28] MEDS ORDERED: PT OWN MED DRAWER 7, Y5N ONE (07:13)
[2018-03-28] MEDS: FAMOTIDINE 20 MG/50 ML IVPB 20 MG/50 ML MG IVPB SCH ×2 (09:41→21:55)
--- NOTE | 2018-03-28 16:01 | PN ---
Progress Note, Physician History of Present Illness: had few loose BMs today - Current Medication List Current Medications: Active Medications Acetaminophen (Tylenol -) 650 mg PO Q6H PRN PRN Reason: FEVER Last Admin: 03/28/18 05:04 Dose: 650 mg Chlordiazepoxide HCl (Librium -) 25 mg PO [id number] CLARI Last Admin: 03/28/18 11:33 Dose: 25 mg Famotidine/Sodium Chloride (Pepcid 20 Mg Premixed Ivpb -) 20 mg in 50 mls @ 100 mls/hr IVPB BID CLARI Last Admin: 03/28/18 09:41 Dose: 100 mls/hr Ondansetron HCl (Zofran Injection) 4 mg IVPUSH Q4H PRN PRN Reason: NAUSEA AND/OR VOMITING - Objective Vital Signs: Vital Signs Temperature 98 F 03/28/18 15:00 Pulse Rate 89 03/28/18 15:00 Respiratory Rate 20 03/28/18 15:00 Blood Pressure 96/63 03/28/18 15:00 O2 Sat by Pulse Oximetry (%) 100 03/28/18 09:00 HENT: Yes: Atraumatic Neck: Yes: Supple Cardiovascular: Yes: Regular Rate and Rhythm Respiratory: Yes: CTA Bilaterally Gastrointestinal: Yes: Normal Bowel Sounds Extremities: Yes: WNL Edema: No Peripheral Pulses WNL: Yes Neurological: Yes: Alert, Oriented Labs: CBC, BMP 03/27/18 06:30 03/27/18 06:30 Problem List - Problems (1) Abdominal pain Assessment/Plan: better now on protonix Code(s): R10.9 - UNSPECIFIED ABDOMINAL PAIN (2) Alcohol abuse Code(s): F10.10 - ALCOHOL ABUSE, UNCOMPLICATED
[2018-03-29] MEDS ORDERED: chlordiazePOXIDE HCL 10 MG CAPSULE PO SCH (08:00)
[2018-03-29] MEDS ORDERED: chlordiazePOXIDE 5 MG CAPSULE ONE (09:01)
[2018-03-29] MEDS: FAMOTIDINE 20 MG/50 ML IVPB 20 MG/50 ML MG IVPB SCH (09:50)
[2018-03-29 15:15] VITALS: PULSE 81
[2018-03-29 17:05] VITALS: BP 123/60; TEMP 98.5
--- NOTE | 2018-03-29 19:09 | DS ---
Physical Examination Vital Signs: Vital Signs Temperature 98.5 F 03/29/18 17:05 Pulse Rate 81 03/29/18 17:05 Respiratory Rate 20 03/29/18 17:05 Blood Pressure 123/60 03/29/18 17:05 O2 Sat by Pulse Oximetry (%) 100 03/28/18 21:00 Constitutional: Yes: No Distress HENT: Yes: Atraumatic Neck: Yes: Supple Cardiovascular: Yes: Regular Rate and Rhythm Respiratory: Yes: CTA Bilaterally Gastrointestinal: Yes: Normal Bowel Sounds Extremities: Yes: WNL Neurological: Yes: Alert, Oriented Labs: CBC, BMP 03/27/18 06:30 03/27/18 06:30 Discharge Summary Reason For Visit: DRUG WITHDRAWAL Current Active Problems Abdominal pain (Acute) Alcohol dependence with uncomplicated withdrawal (Chronic) Condition: Fair - Instructions Diet, Activity, Other Instructions: see your doctor next week see detox clinic as out patient - Home Medications Comprehensive Discharge Medication List: Ambulatory Orders NK [No Known Home Medication] 04/30/16 ia home
== END 2018-03-29 19:24 | disposition home or self-care (01) | DRG 775 ==
LOC: JER 07:37 → JERBED 10:20 → J8W 17:47
PROVIDERS: ADMIT Internal Medicine; ATTEND Internal Medicine
PROC: HZ2ZZZZ Detoxification Services for Substance Abuse Treatment (ICD-10-PCS; principal; 2018-03-26)
DX: F10.230 Alcohol dependence with withdrawal, uncomplicated (principal); R10.9 Unspecified abdominal pain; R11.2 Nausea with vomiting, unspecified
CPT/HCPCS: 36415; 80053; 82150; 83690; 85025; 99283-25; J0131; J7030

== ENCOUNTER 2018-07-20 08:14 | Inpatient (IN) | payer OTHER ==
--- NOTE | 2018-07-20 08:51 | HP ---
CIWA Score Nausea/Vomitin Muscle Tremors: 3 Anxiety: 3 Agitation: 3 Paroxysmal Sweats: 1-Minimal Palms Moist Orientation: 0-Oriented Tacttile Disturbances: 1-Very Mild Itch/Numbness Auditory Disturbances: 1-Very Mild Visual Disturbances: 0-None Headache: 2-Mild CIWA-Ar Total Score: 17 - Admission Criteria OASAS Guidelines: Admission for Medically Managed Detox: Requires at least one of the followin. CIWA greater than 12 2. Seizures within the past 24 hours 3. Delirium tremens within the past 24 hours 4. Hallucinations within the past 24 hours 5. Acute intervention needed for co occurring medical disorder 6. Acute intervention needed for co occurring psychiatric disorder 7. Severe withdrawal that cannot be handled at a lower level of care (continued vomiting, continued diarrhea, abnormal vital signs) requiring intravenous medication and/or fluids 8. Admission ROS BHS - HPI Chief Complaint: i neeed help to stop drinking alcohol Allergies/Adverse Reactions: Allergies Allergy/AdvReac Type Severity Reaction Status Date / Time No Known Allergies Allergy Verified 07/18/17 23:25 History of Present Illness: this 37 years old male with alcohol dependence,seeking detox,withdrawal symptom, last detox 03/26/18 to 03/29/18 multiple admissions in detox but keep relapsing syncope alcohol related no significant period of sobriety Exam Limitations: No Limitations - Ebola screening Have you traveled outside of the country in the last 21 days: No Have you had contact with anyone from an Ebola affected area: No Have you been sick,other than usual withdrawal symptoms: No Do you have a fever: No - Review of Systems Constitutional: Loss of Appetite, Malaise, Night Sweats, Changes in sleep EENT: reports: No Symptoms Reported Respiratory: reports: No Symptoms reported Cardiac: reports: Palpitations GI: reports: Nausea, Vomiting, Abdominal cramping : reports: No Symptoms Reported Musculoskeletal: reports: Back Pain, Muscle Pain Integumentary: reports: Dryness Neuro: reports: Headache, Tremors Endocrine: reports: No Symptoms Reported Hematology: reports: No Symptoms Reported Psychiatric: reports: No Sypmtoms Reported, Judgement Intact, Mood/Affect Appropiate, Orientated x3 Other Systems: Reviewed and Negative Patient History - Patient Medical History Hx Anemia: No Hx Asthma: No Hx Chronic Obstructive Pulmonary Disease (COPD): No Hx Cancer: No Hx Cardiac Disorders: No Hx Congestive Heart Failure: No Hx Hypertension: No Hx Hypercholesterolemia: No Hx Pacemaker: No HX Cerebrovascular Accident: No Hx Seizures: No Hx Dementia: No Hx Diabetes: No Hx Gastrointestinal Disorders: No Hx Liver Disease: No Hx Genitourinary Disorders: No Hx Sexually Transmitted Disorders: No Hx Renal Disease (ESRD): No Hx Thyroid Disease: No Hx Human Immunodeficiency Virus (HIV): No (last 2018 negative) Hx Hepatitis C: No Hx Depression: No Hx Suicide Attempt: No Hx Bipolar Disorder: No Hx Schizophrenia: No Other Medical History: no suicidal,no homicidal - Patient Surgical History Past Surgical History: No Hx Neurologic Surgery: No Hx Cataract Extraction: No Hx Cardiac Surgery: No Hx Lung Surgery: No Hx Breast Surgery: No Hx Breast Biopsy: No Hx Abdominal Surgery: No Hx Appendectomy: No Hx Cholecystectomy: No Hx Genitourinary Surgery: No Hx Section: No Hx Orthopedic Surgery: No Anesthesia Reaction: No - PPD History Previous Implant?: Yes Implanted On Prior [facility] Admission?: Yes Date: 05/02/16 Results: 20 mm PPD to be Administered?: No - Smoking Cessation Smoking history: Never smoked Have you smoked in the past 12 months: No Hx Chewing Tobacco Use: No - Substance & Tx. History Hx Alcohol Use: Yes Hx Substance Use: No Substance Use Type: Alcohol Hx Substance Use Treatment: Yes ([facility] 03/26/18 to 03/29/18) - Substances Abused Alcohol Route: Oral Frequency: Daily Amount used: 2pints of alea Age of first use: 20 Date of Last Use: 07/20/18 Family Disease History - Family Disease History Family Disease History: Heart Disease: Father (ALCOHOL), Other: Father, Mother ( alcohol) Admission Physical Exam S - Vital Signs Vital Signs: Vital Signs - 24 hr 07/20/18 08:33 Temperature 96.6 F L Pulse Rate 94 H Respiratory 16 Rate Blood Pressure 128/84 - Physical General Appearance: Yes: Moderate Distress, Tremorous, Irritable, Sweating, Anxious HEENTM: Yes: Normal ENT Inspection, JONY, Pharynx Normal Respiratory: Yes: Lungs Clear, Normal Breath Sounds, No Respiratory Distress Neck: Yes: Within Normal Limits, Supple, Trachea in good position Breast: Yes: Within Normal Limits Cardiology: Yes: Within Normal Limits, Regular Rhythm, Regular Rate, S1, S2 Abdominal: Yes: Normal Bowel Sounds (pain in epigastrium), Flat, Soft Genitourinary: Yes: Within Normal Limits Back: Yes: Muscle Spasm Musculoskeletal: Yes: Back pain, Muscle Pain Neurological: Yes: radiology assistant II-XII NML intact, Fully Oriented, Alert, Motor Strength 5/5 Integumentary: Yes: Dry Lymphatic: Yes: Within Normal Limits - Diagnostic (1) Alcohol dependence with uncomplicated withdrawal Current Visit: No Status: Chronic (2) Alcohol dependence with intoxication Current Visit: Yes Status: Acute (3) Syncope Current Visit: Yes Status: Acute (4) Dehydration Current Visit: Yes Status: Acute Cleared for Admission [facility] - Detox or Rehab [facility] Level of Care: Medically Managed Detox Regimen/Protocol: Librium [facility] Breath Alcohol Content Breath Alcohol Content: 0.130 Urine Drug Screen - Results Drug Screen Negative: Yes Inpatient Rehab Admission - Rehab Decision to Admit Inpatient rehab admission?: No
[2018-07-20] MEDS ORDERED: MAGNESIUM CITRATE 300 ML BOTTLE PO PRN (08:57)
[2018-07-20] MEDS ORDERED: MAGNESIUM HYDROX 2400MG/30ML ORAL SUSPENSION 30 ML CUP PO PRN (08:57)
[2018-07-20] MEDS ORDERED: METHOCARBAMOL 500 MG TABLET PO PRN (08:57)
[2018-07-20] MEDS ORDERED: hydrOXYzine PAMOATE 25 MG CAPSULE (FP) PO PRN (08:57)
[2018-07-20] MEDS ORDERED: IBUPROFEN 400 MG TABLET (FP) PO PRN (08:57)
[2018-07-20] MEDS ORDERED: MENTHOL/PHENOL 1 EACH UD MM PRN (08:57)
[2018-07-20] MEDS ORDERED: BISMUTH SUBSALICYLATE 262 MG/15 ML BTL PO PRN (08:57)
[2018-07-20] MEDS ORDERED: chlordiazePOXIDE HCL 25 MG CAPSULE PO PRN (08:57)
[2018-07-20] MEDS ORDERED: ACETAMINOPHEN 325 MG TABLET (FP) PO PRN ×2 (08:57)
[2018-07-20] MEDS ORDERED: MELATONIN 5 MG TABLETS PO PRN (08:57)
[2018-07-20 08:58] VITALS: BMI 27.4
[2018-07-20] MEDS ORDERED: TRIMETHOBENZAMIDE HCL 200MG/2ML INJ IM ONE (08:59)
[2018-07-20] MEDS ORDERED: TRIMETHOBENZAMIDE HCL 200MG/2ML INJ IM PRN (09:00)
[2018-07-20] MEDS: chlordiazePOXIDE HCL 25 MG CAPSULE PO SCH ×3 (10:41→22:26)
[2018-07-20] MEDS: PRENATAL VITAMINS W/ FOLIC ACID TABLET (FP) PO SCH (10:42)
[2018-07-20] MEDS: THIAMINE HCL 100 MG TABLET (FP) PO SCH (22:27)
[2018-07-20] MEDS: MAG HYDROX/AL HYDROX/SIMETH 30 ML UNIT-DOSE CUP PO PRN (22:27)
[2018-07-21] MEDS: chlordiazePOXIDE HCL 25 MG CAPSULE PO SCH ×4 (05:32→22:14)
[2018-07-21] MEDS: PRENATAL VITAMINS W/ FOLIC ACID TABLET (FP) PO SCH (10:10)
[2018-07-21 11:01] LABS: ALBUMIN 4.2 g/dl (3.4-5.0); ALK PHOS 96 U/L (45-117); ANION GAP 12 MMOL/L (8-16); BLOOD UREA NITROGEN 8 mg/dL (7-18); CALCIUM 8.3 mg/dL (8.5-10.1); CHLORIDE 100 mmol/L (98-107); CO2 27 mmol/L (21-32); CREATININE 0.9 mg/dL (0.55-1.3); GLUCOSE,RANDOM 119 mg/dL (74-106); POTASSIUM 3.2 mmol/L (3.5-5.1); SGOT/AST 74 U/L (15-37); SGPT/ALT 56 U/L (13-61); SODIUM 138 mmol/L (136-145); TOT PROT 8.3 g/dl (6.4-8.2)
[2018-07-21 11:16] LABS: HEMOGLOBIN 15.2 GM/dL (11.7-16.9); MCH 33.4 pg (25.7-33.7); MCHC 36.1 g/dl (32.0-35.9); MEAN CELL VOLUME 92.6 fl (80-96); MEAN PLT VOLUME 9.7 fl (7.5-11.1); PLATELET COUNT 139 K/MM3 (134-434); RBC 4.54 M/mm3 (4.00-5.60); RDW 12.9 % (11.9-15.9); WHITE BLOOD COUNT 3.8 K/mm3 (4.0-10.0)
[2018-07-21] MEDS ORDERED: guaiFENesin 200 MG/10 ML 10 ML UNIT-DOSE CUPS PO PRN (13:18)
--- NOTE | 2018-07-21 13:23 | PN ---
S CIWA - CIWA Score Nausea/Vomitin Muscle Tremors: 3 Anxiety: 3 Agitation: 0-Normal Activity Paroxysmal Sweats: No Perspiration Orientation: 0-Oriented Tacttile Disturbances: 2-Mild Itch/Numbness/Burn Auditory Disturbances: 0-None Visual Disturbances: 2-Mild Sensitivity Headache: 0-None Present CIWA-Ar Total Score: 15 [facility] Progress Note (SOAP) Subjective: Vomiting, Tremors, Stomach Cramping, Anxious. Objective: PATIENT A & O X 3, OBSERVED AMBULATING ON UNIT. IN NO ACUTE DISTRESS. 07/21/18 13:21 Vital Signs Temperature 96 F L 07/21/18 09:38 Pulse Rate 90 07/21/18 09:38 Respiratory Rate 20 07/21/18 09:38 Blood Pressure 120/78 07/21/18 09:38 O2 Sat by Pulse Oximetry (%) Laboratory Tests 07/21/18 07/21/18 07/21/18 05:40 05:40 05:40 WBC 3.8 L RBC 4.54 Hgb 15.2 Hct 42.0 MCV 92.6 MCH 33.4 MCHC 36.1 H RDW 12.9 Plt Count 139 D MPV 9.7 Sodium 138 Potassium 3.2 L Chloride 100 Carbon Dioxide 27 Anion Gap 12 BUN 8 Creatinine 0.9 Creat Clearance w eGFR 94.95 Random Glucose 119 H Calcium 8.3 L Total Bilirubin 1.0 AST 74 H ALT 56 Alkaline Phosphatase 96 Total Protein 8.3 H Albumin 4.2 RPR Titer Nonreactive LABS NOTED. Assessment: 07/21/18 13:21 WITHDRAWAL SYMPTOMS. HYPOKALEMIA. Plan: CONTINUE DETOX. INCREASE DAILY PO FLUID INTAKE. K-DUR, 20 MEQ PO BID. RE-CHECK K LEVEL ON 07/23/2018.
[2018-07-21] MEDS ORDERED: POTASSIUM CHLORIDE TABS 20 MEQ TABLET.ER (FP) PO ONE (13:30)
[2018-07-21] MEDS: POTASSIUM CHLORIDE TABS 20 MEQ TABLET.ER (FP) PO SCH (17:59)
[2018-07-21] MEDS: MAG HYDROX/AL HYDROX/SIMETH 30 ML UNIT-DOSE CUP PO PRN (18:01)
[2018-07-21] MEDS: THIAMINE HCL 100 MG TABLET (FP) PO SCH (22:14)
[2018-07-22] MEDS: chlordiazePOXIDE HCL 25 MG CAPSULE PO SCH (05:18)
[2018-07-22] MEDS: POTASSIUM CHLORIDE TABS 20 MEQ TABLET.ER (FP) PO SCH ×2 (10:01→17:19)
[2018-07-22] MEDS: PRENATAL VITAMINS W/ FOLIC ACID TABLET (FP) PO SCH (10:01)
[2018-07-22] MEDS: chlordiazePOXIDE HCL 10 MG CAPSULE PO SCH ×3 (10:01→22:09)
[2018-07-22] MEDS: MAG HYDROX/AL HYDROX/SIMETH 30 ML UNIT-DOSE CUP PO PRN ×2 (10:02→17:20)
[2018-07-22] MEDS ORDERED: chlordiazePOXIDE HCL 10 MG CAPSULE PO PRN (11:00)
[2018-07-22] MEDS ORDERED: FLU VACCINE QUAD 60 MCG/0.5 ML (MDV 18-19) IM ONE (12:00)
--- NOTE | 2018-07-22 15:26 | PN ---
[facility] CIWA - CIWA Score Nausea/Vomitin-No Nausea/No Vomiting Muscle Tremors: 2 Anxiety: 2 Agitation: 1-Slight > Activity Paroxysmal Sweats: 1-Minimal Palms Moist Orientation: 1-Uncertain about Date Tacttile Disturbances: 3-Moderate Itch/Numb/Burn Auditory Disturbances: 0-None Visual Disturbances: 0-None Headache: 1-Very Mild CIWA-Ar Total Score: 11 S Progress Note (SOAP) Subjective: ambulating on hallway social with peers feeling ok today doing well with the regimen Objective: 07/22/18 15:25 Vital Signs Temperature 97.4 F L 07/22/18 13:02 Pulse Rate 85 07/22/18 13:02 Respiratory Rate 18 07/22/18 13:02 Blood Pressure 108/68 07/22/18 13:02 O2 Sat by Pulse Oximetry (%) Laboratory Last Values WBC 3.8 K/mm3 (4.0-10.0) L 07/21/18 05:40 RBC 4.54 M/mm3 (4.00-5.60) 07/21/18 05:40 Hgb 15.2 GM/dL (11.7-16.9) 07/21/18 05:40 Hct 42.0 % (35.4-49) 07/21/18 05:40 MCV 92.6 fl (80-96) 07/21/18 05:40 MCH 33.4 pg (25.7-33.7) 07/21/18 05:40 MCHC 36.1 g/dl (32.0-35.9) H 07/21/18 05:40 RDW 12.9 % (11.9-15.9) 07/21/18 05:40 Plt Count 139 K/MM3 (134-434) D 07/21/18 05:40 MPV 9.7 fl (7.5-11.1) 07/21/18 05:40 Sodium 138 mmol/L (136-145) 07/21/18 05:40 Potassium 3.2 mmol/L (3.5-5.1) L 07/21/18 05:40 Chloride 100 mmol/L (98-107) 07/21/18 05:40 Carbon Dioxide 27 mmol/L (21-32) 07/21/18 05:40 Anion Gap 12 MMOL/L (8-16) 07/21/18 05:40 BUN 8 mg/dL (7-18) 07/21/18 05:40 Creatinine 0.9 mg/dL (0.55-1.3) 07/21/18 05:40 Creat Clearance w eGFR 94.95 (>60) 07/21/18 05:40 Random Glucose 119 mg/dL (74-106) H 07/21/18 05:40 Calcium 8.3 mg/dL (8.5-10.1) L 07/21/18 05:40 Total Bilirubin 1.0 mg/dL (0.2-1) 07/21/18 05:40 AST 74 U/L (15-37) H 07/21/18 05:40 ALT 56 U/L (13-61) 07/21/18 05:40 Alkaline Phosphatase 96 U/L (45-117) 07/21/18 05:40 Total Protein 8.3 g/dl (6.4-8.2) H 07/21/18 05:40 Albumin 4.2 g/dl (3.4-5.0) 07/21/18 05:40 RPR Titer Nonreactive (NONREACTIVE) 07/21/18 05:40 lab noted low K+ Assessment: 07/22/18 15:26 alcohol withdrawal sx hypokalemia Plan: continue detox repeat K+
[2018-07-22] MEDS: THIAMINE HCL 100 MG TABLET (FP) PO SCH (22:08)
[2018-07-23] MEDS: chlordiazePOXIDE HCL 10 MG CAPSULE PO SCH (05:52)
--- NOTE | 2018-07-23 08:39 | DS ---
[facility] Detox Discharge Summary Admission Date: 07/20/18 Discharge Date: 07/23/18 - History Present History: Alcohol Dependence Additional Comments: 37 years old male admitted on 07/20/18 for alcohol withdrawal stabilization completed detox regimen aftercare - Physical Exam Results Vital Signs: Vital Signs Temperature 97.5 F L 07/23/18 06:04 Pulse Rate 80 07/23/18 06:04 Respiratory Rate 18 07/23/18 06:04 Blood Pressure 99/68 07/23/18 06:04 O2 Sat by Pulse Oximetry (%) Pertinent Admission Physical Exam Findings: alcohol withdrawal sx Laboratory Last Values WBC 3.8 K/mm3 (4.0-10.0) L 07/21/18 05:40 RBC 4.54 M/mm3 (4.00-5.60) 07/21/18 05:40 Hgb 15.2 GM/dL (11.7-16.9) 07/21/18 05:40 Hct 42.0 % (35.4-49) 07/21/18 05:40 MCV 92.6 fl (80-96) 07/21/18 05:40 MCH 33.4 pg (25.7-33.7) 07/21/18 05:40 MCHC 36.1 g/dl (32.0-35.9) H 07/21/18 05:40 RDW 12.9 % (11.9-15.9) 07/21/18 05:40 Plt Count 139 K/MM3 (134-434) D 07/21/18 05:40 MPV 9.7 fl (7.5-11.1) 07/21/18 05:40 Sodium 138 mmol/L (136-145) 07/21/18 05:40 Potassium 3.2 mmol/L (3.5-5.1) L 07/21/18 05:40 Chloride 100 mmol/L (98-107) 07/21/18 05:40 Carbon Dioxide 27 mmol/L (21-32) 07/21/18 05:40 Anion Gap 12 MMOL/L (8-16) 07/21/18 05:40 BUN 8 mg/dL (7-18) 07/21/18 05:40 Creatinine 0.9 mg/dL (0.55-1.3) 07/21/18 05:40 Creat Clearance w eGFR 94.95 (>60) 07/21/18 05:40 Random Glucose 119 mg/dL (74-106) H 07/21/18 05:40 Calcium 8.3 mg/dL (8.5-10.1) L 07/21/18 05:40 Total Bilirubin 1.0 mg/dL (0.2-1) 07/21/18 05:40 AST 74 U/L (15-37) H 07/21/18 05:40 ALT 56 U/L (13-61) 07/21/18 05:40 Alkaline Phosphatase 96 U/L (45-117) 07/21/18 05:40 Total Protein 8.3 g/dl (6.4-8.2) H 07/21/18 05:40 Albumin 4.2 g/dl (3.4-5.0) 07/21/18 05:40 RPR Titer Nonreactive (NONREACTIVE) 07/21/18 05:40 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
[2018-07-23 09:22] VITALS: BP 107/75; PULSE 85; TEMP 97.7
[2018-07-23] MEDS: POTASSIUM CHLORIDE TABS 20 MEQ TABLET.ER (FP) PO SCH (09:33)
[2018-07-23] MEDS: PRENATAL VITAMINS W/ FOLIC ACID TABLET (FP) PO SCH (09:33)
[2018-07-23] MEDS ORDERED: chlordiazePOXIDE HCL 10 MG CAPSULE PO SCH (11:00)
== END 2018-07-23 09:20 | disposition home or self-care (01) | DRG 775 ==
LOC: YASAS 08:14 → Y3N 09:01
PROVIDERS: ADMIT Surgery; ATTEND Surgery
PROC: HZ2ZZZZ Detoxification Services for Substance Abuse Treatment (ICD-10-PCS; principal; 2018-07-20)
DX: F10.230 Alcohol dependence with withdrawal, uncomplicated (principal); E87.6 Hypokalemia; E86.0 Dehydration; R55 Syncope and collapse; M62.830 Muscle spasm of back
CPT/HCPCS: 36415; 71046-TC-FY; 80053; 85027; 86593; 90688; G0008

== ENCOUNTER 2018-10-01 02:42 | Emergency (ER) | payer OTHER ==
[2018-10-01 03:37] VITALS: TEMP 97.8; BMI 26.6
[2018-10-01] MEDS ORDERED: SODIUM CHLORIDE 0.9% 500 ML INFUS.BAG IV ONE (03:50)
[2018-10-01] MEDS ORDERED: FAMOTIDINE 20 MG/50 ML IVPB 20 MG/50 ML MG IVPB ONE ×2 (03:50→04:29)
[2018-10-01] MEDS ORDERED: ONDANSETRON 4 MG/2 ML VIAL IVPUSH ONE (03:52)
--- NOTE | 2018-10-01 03:53 | PDOC ---
History of Present Illness - General Chief Complaint: Migraine Headache Stated Complaint: HEADACHE Time Seen by Provider: 10/01/18 03:43 History Source: Patient Exam Limitations: No Limitations - History of Present Illness Initial Comments: 10/01/18 03:54 Patient is a 30-year-old male with history of alcohol abuse here with complaints of nausea and vomiting and headache since yesterday. Patient states he drinks daily but 2 months ago, he stopped because he wanted to a detox program. However, 2 weeks ago started drinking again, and for the past 2 days has had nausea, vomiting, headache. States he has burning in the epigastrium and in the chest with vomiting and that he starts shaking when he vomits. He reports that his headache is 9/10, frontal, throbbing. Reports that he drank prior to coming to the emergency room. Denies fever, chills, diarrhea. PMD: at [address] [place] [address] PMHX: as above PSOCHX: (-) cig, (-) drug, (+) etoh ALL: NKDA GENERAL/CONSTITUTIONAL: No fever or chills. No weakness. No weight change. HEAD, EYES, EARS, NOSE AND THROAT: No change in vision. No ear pain or discharge. No sore throat. CARDIOVASCULAR: No chest pain or shortness of breath. RESPIRATORY: No cough, wheezing, or hemoptysis. GASTROINTESTINAL: (+) nausea, vomiting, diarrhea or constipation. No rectal bleeding. GENITOURINARY: No dysuria, frequency, or change in urination. MUSCULOSKELETAL: No joint or muscle swelling or pain. No neck or back pain. SKIN AND BREASTS: No rash or easy bruising. NEUROLOGIC: No headache, vertigo, loss of consciousness, or loss of sensation. PSYCHIATRIC: No depression or anxiety. ENDOCRINE: No increased thirst. No abnormal weight change. HEMATOLOGIC/LYMPHATIC: No anemia, easy bleeding, or history of blood clots. ALLERGIC/IMMUNOLOGIC: No hives or skin allergy. No latex allergy. GENERAL: The patient is awake, alert, and fully oriented, in acute distress. HEAD: Normal with no signs of trauma. EYES: Pupils equal, round and reactive to light, extraocular movements intact, sclera anicteric, conjunctiva clear. ENT: Ears normal, nares patent, oropharynx clear without exudates. Moist mucous membranes. NECK: Normal range of motion, supple without lymphadenopathy, JVD, or masses. LUNGS: Breath sounds equal, clear to auscultation bilaterally. No wheezes, and no crackles. HEART: Regular rate and rhythm, normal S1 and S2 without murmur, rub. ABDOMEN: Soft, mild tenderness RUQ, normoactive bowel sounds. No guarding, no rebound. No masses. EXTREMITIES: Normal range of motion, no edema. No clubbing or cyanosis. No cords, erythema, or tenderness. NEUROLOGICAL: Cranial nerves II through XII grossly intact. Normal speech, normal gait. PSYCH: Normal mood, normal affect. SKIN: Warm, Dry, normal turgor, no rashes or lesions noted. Past History - Past Medical History Allergies/Adverse Reactions: Allergies Allergy/AdvReac Type Severity Reaction Status Date / Time No Known Allergies Allergy Verified 07/18/17 23:25 Home Medications: Ambulatory Orders NK [No Known Home Medication] 10/01/18 Anemia: No Asthma: No Cancer: No Cardiac Disorders: No CVA: No COPD: No CHF: No Dementia: No Diabetes: No GI Disorders: No Disorders: No HTN: No Hypercholesterolemia: No Kidney Stones: No Liver Disease: No Seizures: No Thyroid Disease: No - Surgical History Abdominal Surgery: No Appendectomy: No Cardiac Surgery: No Cholecystectomy: No Lung Surgery: No Neurologic Surgery: No Orthopedic Surgery: No - Reproductive History Testicular Surgery: No - Immunization History Immunization Up to Date: Yes - Suicide/Smoking/Psychosocial Hx Smoking History: Never smoked Have you smoked in the past 12 months: No Information on smoking cessation initiated: No Hx Alcohol Use: Yes Drug/Substance Use Hx: No Substance Use Type: Alcohol Hx Substance Use Treatment: Yes ([facility] 03/26/18 to 03/29/18) *Physical Exam - Vital Signs Last Vital Signs Temp Pulse Resp BP Pulse Ox 97.8 F 105 H 20 117/79 95 10/01/18 03:35 10/01/18 03:35 10/01/18 03:35 10/01/18 03:35 10/01/18 03:35 ED Treatment Course - LABORATORY CBC & Chemistry Diagram: 10/01/18 04:17 10/01/18 04:17 Medical Decision Making - Medical Decision Making 10/01/18 03:54 Patient is a 30-year-old male with history of alcohol abuse here with complaints of nausea and vomiting and headache since yesterday. Patient states he drinks daily but 2 months ago, he stopped because he wanted to a detox program. However, 2 weeks ago started drinking again, and for the past 2 days has had nausea, vomiting, headache. States he has burning in the epigastrium and in the chest with vomiting and that he starts shaking when he vomits. He reports that his headache is 9/10, frontal, throbbing. Reports that he drank prior to coming to the emergency room. Denies fever, chills, diarrhea. Symptoms consistent with gastritis will rule out cholecystitis. Labs MedsZofran, Pepcid, IV fluid, Reassess Labs reviewed noted to have an alcohol level of 286. 10/01/18 06:10 Patient complains that "I don't feel good". States he feels shaky. Will give patient Librium 50 mg by mouth and also Zofran 4 mg by mouth for nausea. Still complaining of a headache. Written for a CT scan of the head rule out SDH 10/01/18 07:03 Endorsed to Eileen WESLEY pending CT head and disposition. *DC/Admit/Observation/Transfer Diagnosis at time of Disposition: Alcohol abuse Nausea and vomiting Qualifiers: Vomiting type: unspecified Vomiting Intractability: unspecified Qualified Code( s): R11.2 - Nausea with vomiting, unspecified Headache Qualifiers: Headache type: unspecified Headache chronicity pattern: unspecified pattern Intractability: not intractable Qualified Code(s): R51 - Headache - Discharge Dispostion Condition at time of disposition: Stable - Referrals - Patient Instructions - Post Discharge Activity
[2018-10-01] MEDS ORDERED: ONDANSETRON 4 MG/2 ML VIAL ONE (04:29)
[2018-10-01 04:31] LABS: BASO % 0.6 % (0-2.0); EOS % 0.2 % (0-4.5); HEMATOCRIT 44.7 % (35.4-49); HEMOGLOBIN 15.3 GM/dL (11.7-16.9); LYMPH % 35.7 % (8-40); MCH 31.7 pg (25.7-33.7); MCHC 34.1 g/dl (32.0-35.9); MEAN CELL VOLUME 92.8 fl (80-96); MEAN PLT VOLUME 8.3 fl (7.5-11.1); MONO % 6.9 % (3.8-10.2); NEUT % 56.6 % (42.8-82.8); PLATELET COUNT 192 K/MM3 (134-434); RBC 4.82 M/mm3 (4.00-5.60); RDW 13.1 % (11.9-15.9); WHITE BLOOD COUNT 4.7 K/mm3 (4.0-10.0)
[2018-10-01 05:36] LABS: ALBUMIN 3.9 g/dl (3.4-5.0); BILIRUBIN,TOTAL 0.5 mg/dL (0.2-1); CALCIUM 7.8 mg/dL (8.5-10.1); CREATININE 0.9 mg/dL (0.55-1.3); POTASSIUM 3.7 mmol/L (3.5-5.1); TOT PROT 7.8 g/dl (6.4-8.2)
[2018-10-01] MEDS ORDERED: ONDANSETRON 4 MG TABLET PO ONE (06:09)
[2018-10-01] MEDS ORDERED: chlordiazePOXIDE HCL 25 MG CAPSULE PO ONE ×2 (06:09→06:15)
[2018-10-01] MEDS ORDERED: chlordiazePOXIDE HCL 25 MG CAPSULE ONE ×2 (06:26→06:45)
[2018-10-01] MEDS ORDERED: ONDANSETRON *ODT* 4 MG TABLET ONE (06:27)
[2018-10-01] MEDS ORDERED: SODIUM CHLORIDE 1,000 ML IV STA (07:03)
[2018-10-01] MEDS ORDERED: METOCLOPRAMIDE HCL INJECTION 10 MG/2 ML VIAL IVPB ONE (07:03)
--- NOTE | 2018-10-01 07:06 | PDOC ---
*Physical Exam - Vital Signs Last Vital Signs Temp Pulse Resp BP Pulse Ox 97.8 F 105 H 20 117/79 95 10/01/18 03:35 10/01/18 03:35 10/01/18 03:35 10/01/18 03:35 10/01/18 03:35 - Physical Exam General Appearance: Yes: Nourished, Appropriately Dressed. No: Apparent Distress Integumentary: positive: Normal Color, Dry, Warm Neurologic: positive: dormitory supervisor II-XII NML intact, Fully Oriented, Alert, Normal Mood/ Affect, Normal Response ED Treatment Course - LABORATORY CBC & Chemistry Diagram: 10/01/18 04:17 10/01/18 04:17 - ADDITIONAL ORDERS Additional order review: Laboratory Results 10/01/18 10/01/18 04:17 04:17 Sodium 144 Cancelled Potassium 3.7 Cancelled Chloride 105 Cancelled Carbon Dioxide 26 Cancelled Anion Gap 12 Cancelled BUN 10 Cancelled Creatinine 0.9 Cancelled Est GFR (CKD-EPI)AfAm 125.13 Cancelled Est GFR (CKD-EPI)NonAf 107.97 Cancelled Random Glucose 119 H Cancelled Calcium 7.8 L Cancelled Total Bilirubin 0.5 Cancelled AST 36 Cancelled ALT 31 Cancelled Alkaline Phosphatase 108 Cancelled Total Protein 7.8 Cancelled Albumin 3.9 Cancelled Total Amylase 78 Cancelled Lipase 175 Alcohol, Quantitative 268.1 H 10/01/18 04:17 RBC 4.82 MCV 92.8 MCHC 34.1 RDW 13.1 MPV 8.3 D Neutrophils % 56.6 Lymphocytes % 35.7 D Monocytes % 6.9 Eosinophils % 0.2 D Basophils % 0.6 - Medications Given in the ED: ED Medications Discontinued Medications Generic Name Dose Route Start Last Admin Trade Name Freq PRN Reason Stop Dose Admin Chlordiazepoxide HCl 50 mg 10/01/18 06:09 10/01/18 06:29 Librium - PO 10/01/18 06:10 50 mg ONCE ONE Administration Famotidine/Sodium Chloride 20 mg in 50 mls @ 100 mls/hr 10/01/18 03:50 04:42 Pepcid 20 Mg Premixed Ivpb - IVPB 10/01/18 04:19 100 mls/hr ONCE ONE Administration Ondansetron HCl 4 mg 10/01/18 03:52 10/01/18 04:42 Zofran Injection IVPUSH 10/01/18 03:53 4 mg ONCE ONE Administration Ondansetron HCl 4 mg 10/01/18 06:09 10/01/18 06:29 Zofran - PO 10/01/18 06:10 4 mg ONCE ONE Administration Sodium Chloride 1,000 ml 10/01/18 03:50 10/01/18 04:42 Normal Saline - IV 10/01/18 03:51 1,000 ml ONCE ONE Administration Medical Decision Making - Medical Decision Making 10/01/18 07:04 Sign out received from MARYJANE Crespo. Pt presented with both a left sided headache and epigastric pain. (+) alcohol intake this PM; alcohol level 268. Librium given. MTF, pending CT Pt vomited in ED after zofran. Will add reglan/benadryl combo Re-eval 10/01/18 08:[address] is negative. Pt is walking around the ER with a steady gait. States he feels better DC to detox as requested Spoke with Dr. Allison who states to send the patient over for evaluation I discussed the physical exam findings, ancillary test results and final diagnoses with the patient. I answered all of the patient's questions. The patient was satisfied with the care received and felt comfortable with the discharge plan and treatment plan. The Patient agrees to follow up with the primary care physician/specialist within 24-72 hours. Return precautions were given. *DC/Admit/Observation/Transfer Diagnosis at time of Disposition: Alcohol abuse Nausea and vomiting Qualifiers: Vomiting type: unspecified Vomiting Intractability: unspecified Qualified Code( s): R11.2 - Nausea with vomiting, unspecified Headache Qualifiers: Headache type: unspecified Headache chronicity pattern: unspecified pattern Intractability: not intractable Qualified Code(s): R51 - Headache - Discharge Dispostion Disposition: HOME Condition at time of disposition: Stable Decision to Admit order: No - Referrals Referrals: Raymundo Allison MD [Staff Physician] - - Patient Instructions Printed Discharge Instructions: DI for Alcohol Abuse Additional Instructions: Your lab work and head CT were normal today Please go to [facility] for detox as discussed. They are expecting you - Post Discharge Activity
[2018-10-01] MEDS ORDERED: METOCLOPRAMIDE HCL INJECTION 10 MG/2 ML VIAL ONE (07:24)
[2018-10-01 09:30] VITALS: BP 137/82; PULSE 96
== END 2018-10-01 09:52 | disposition home or self-care (01) ==
LOC: JER 02:42
PROC: 3E033GC Introduction of Other Therapeutic Substance into Peripheral Vein, Percutaneous Approach (ICD-10-PCS; principal; 2018-10-01)
PROC: 3E033GC Introduction of Other Therapeutic Substance into Peripheral Vein, Percutaneous Approach (ICD-10-PCS; 2018-10-01)
PROC: 3E033GC Introduction of Other Therapeutic Substance into Peripheral Vein, Percutaneous Approach (ICD-10-PCS; 2018-10-01)
PROC: 3E033GC Introduction of Other Therapeutic Substance into Peripheral Vein, Percutaneous Approach (ICD-10-PCS; 2018-10-01)
DX: H10.10 Acute atopic conjunctivitis, unspecified eye (principal); R51 Headache; R11.2 Nausea with vomiting, unspecified
CPT/HCPCS: 36415; 70450-TC; 80053; 80307; 82150; 83690; 85025; 96365; 96375; 99283-25; J7030

== ENCOUNTER 2018-10-05 12:41 | Inpatient (IN) | payer OTHER ==
[2018-10-05 16:32] VITALS: BMI 21.3
--- NOTE | 2018-10-05 17:45 | HP ---
CIWA Score Nausea/Vomitin Muscle Tremors: 4-Moderate,w/Arms Extend Anxiety: 4-Mod. Anxious/Guarded Agitation: 4-Moderately Restless Paroxysmal Sweats: 3 (Increased facial moisture) Orientation: 0-Oriented Tacttile Disturbances: 1-Very Mild Itch/Numbness Auditory Disturbances: 0-None Visual Disturbances: 0-None Headache: 2-Mild CIWA-Ar Total Score: 21 - Admission Criteria OASAS Guidelines: Admission for Medically Managed Detox: Requires at least one of the followin. CIWA greater than 12 2. Seizures within the past 24 hours 3. Delirium tremens within the past 24 hours 4. Hallucinations within the past 24 hours 5. Acute intervention needed for co occurring medical disorder 6. Acute intervention needed for co occurring psychiatric disorder 7. Severe withdrawal that cannot be handled at a lower level of care (continued vomiting, continued diarrhea, abnormal vital signs) requiring intravenous medication and/or fluids 8. Patient presents the following: CIWA greater than 12 (REENA WAS 0.303 and now 0.230) Admission Criteria Met: Admission criteria met Admission ROS S - HPI Chief Complaint: Withdrawing from alcohol. I need help.I feel shakes and I'm dizzy. Allergies/Adverse Reactions: Allergies Allergy/AdvReac Type Severity Reaction Status Date / Time No Known Allergies Allergy Verified 10/05/18 16:24 History of Present Illness: 38 years old male with alcohol dependence presents w/ withdrawal symptoms and seeking detox., [facility] ED visit on 10/01/18 w/ intoxication, c/o JERRY, and epigastric pain. Was given Librium in ED. Evaluated and referred to [facility] for detox. Patient did not come to [facility] until today. Patient stated he had to go to work. Patient has multiple admissions in detox but keep relapsing w/ no significant periods of sobriety. Alcohol use began at age 19. Drinks approx 1 gallon liquor daily. On presentation to [facility], REENA WAS 0.303 and now 0.230 Denies nicotine or other substance use. PMHx:syncope alcohol related; Hx PPD (+) last CXR: 07/20/18 - No evidence of TB MHHx; Some mild depression. Denies thoughts of harming self or others. Does not see a MH Provider. Search Terms: Laurent Santiago, 1980 Search Date: 10/05/2018 05:43:26 PM The Drug Utilization Report below displays all of the controlled substance prescriptions, if any, that your patient has filled in the last twelve months. The information displayed on this report is compiled from pharmacy submissions to the Department, and accurately reflects the information as submitted by the pharmacies. This report was requested by: Ernestine Nieto | Reference #: [id number] There are no results for the search terms that you entered. Search Terms: Laurent Santiago, 1980 Search Date: 10/05/2018 05:43:46 PM States Searched: [place], [place], [place], [place], [place], [place], [place], [place] The Drug Utilization Report below displays the controlled substance prescriptions, if any, that were dispensed in the indicated state(s). The information displayed on this report is compiled from requests submitted to other states' PMPs, and accurately reflects the information as returned by them. Blank guzman indicate data not provided by other state. This report was requested by: Ernestine Nieto | Reference #: [id number] Exam Limitations: No Limitations - Ebola screening Have you traveled outside of the country in the last 21 days: No Have you had contact with anyone from an Ebola affected area: No Have you been sick,other than usual withdrawal symptoms: No Do you have a fever: No - Review of Systems Constitutional: Chills, Diaphoresis, Changes in sleep (Difficulty falling asleep ) EENT: reports: Blurred Vision Respiratory: reports: No Symptoms reported Cardiac: reports: Palpitations GI: reports: Nausea, Vomiting : reports: No Symptoms Reported Musculoskeletal: reports: Muscle Pain (Upper arms and calves.) Integumentary: reports: Pruritus (States itching today) Neuro: reports: Headache (C/o headache at back base of head. "5-6". Achy.), Tremors, Dizziness Endocrine: reports: Increased Thirst Hematology: reports: No Symptoms Reported Psychiatric: reports: Judgement Intact, Orientated x3, Agitated, Anxious, Depressed (Denies thoughts of harming self or others) Patient History - Patient Medical History Hx Anemia: No Hx Asthma: No Hx Chronic Obstructive Pulmonary Disease (COPD): No Hx Cancer: No Hx Cardiac Disorders: No Hx Congestive Heart Failure: No Hx Hypertension: No Hx Hypercholesterolemia: No Hx Pacemaker: No HX Cerebrovascular Accident: No Hx Seizures: No Hx Dementia: No Hx Diabetes: No Hx Gastrointestinal Disorders: No Hx Liver Disease: No Hx Genitourinary Disorders: No Hx Sexually Transmitted Disorders: No Hx Renal Disease (ESRD): No Hx Thyroid Disease: No Hx Human Immunodeficiency Virus (HIV): No (last 2018 negative) Hx Hepatitis C: No Hx Depression: No Hx Suicide Attempt: No Hx Bipolar Disorder: No Hx Schizophrenia: No - Patient Surgical History Past Surgical History: No Hx Neurologic Surgery: No Hx Cataract Extraction: No Hx Cardiac Surgery: No Hx Lung Surgery: No Hx Breast Surgery: No Hx Breast Biopsy: No Hx Abdominal Surgery: No Hx Appendectomy: No Hx Cholecystectomy: No Hx Genitourinary Surgery: No Hx Section: No Hx Orthopedic Surgery: No Anesthesia Reaction: No - PPD History Previous Implant?: Yes Documented Results: Positive w/proof Implanted On Prior R Admission?: Yes Date: 05/02/16 Results: 20 mm PPD to be Administered?: No - Smoking Cessation Smoking history: Never smoked Have you smoked in the past 12 months: No Hx Chewing Tobacco Use: No Initiated information on smoking cessation: No - Substance & Tx. History Hx Alcohol Use: Yes Hx Substance Use: Yes Substance Use Type: Alcohol Hx Substance Use Treatment: Yes (multiple detox) - Substances abused Alcohol Frequency: Daily Amount used: 1 bottle of Tequila. Age of first use: 19 Date of last use: 10/05/18 Family Disease History - Family Disease History Family Disease History: Heart Disease: Father (ALCOHOL), Other: Father, Mother ( alcohol) Admission Physical Exam BHS - Vital Signs Vital Signs: Vital Signs - 24 hr 10/05/18 16:23 Temperature 97.7 F Pulse Rate 130 H Respiratory 16 Rate Blood Pressure 139/89 - Physical General Appearance: Yes: Nourished, Moderate Distress, Alcohol on Breath (REENA WAS 0.303 and now 0.230), Tremorous, Irritable, Sweating, Anxious HEENTM: Yes: EOMI (Jerking movement of eyes upon lateral gaze), Hearing grossly Normal, Normocephalic, Normal Voice, JONY, Pharynx Normal, Other (Yellowish triangular patches both eyes.) Respiratory: Yes: Lungs Clear, Normal Breath Sounds, No Respiratory Distress Neck: Yes: No masses,lesions,Nodules, Supple Breast: Yes: Breast Exam Deferred Cardiology: Yes: Regular Rhythm, S1, S2, Tachycardia Abdominal: Yes: Non Tender, Soft, Increased Bowel Sounds Genitourinary: Yes: Within Normal Limits Back: Yes: Normal Inspection Musculoskeletal: Yes: full range of Motion, Gait Steady Extremities: Yes: Normal Capillary Refill, Normal Range of Motion, Tremors Neurological: Yes: program scheduler II-XII NML intact (Jerking movement of eyes upon lateral gaze) Integumentary: Yes: Normal Color, Warm, Diaphoresis (Increased facial moisture) Lymphatic: Yes: Within Normal Limits - Diagnostic (1) Nystagmus Current Visit: Yes Status: Acute (2) Alcohol dependence with uncomplicated withdrawal Current Visit: Yes Status: Acute (3) Headache Current Visit: Yes Status: Chronic Qualifiers: Headache type: unspecified Headache chronicity pattern: episodic headache Intractability: not intractable Qualified Code(s): R51 - Headache (4) P[place]cul[place] of both eyes Current Visit: Yes Status: Chronic (5) History of positive PPD Current Visit: Yes Status: Chronic Cleared for Admission S - Detox or Rehab [facility] Level of Care: Medically Managed Detox Regimen/Protocol: Librium Claeared for Rehab Admission: No Breathalyzer - Breathalyzer Breathalyzer: 0.303 Urine Drug Screen - Test Device Lot number: [id number] Expiration date: 06/28/20 - Control Is test valid?: Yes - Results Drug screen NEGATIVE: No Urine drug screen results: BZO-Benzodiazepines Inpatient Rehab Admission - Rehab Decision to Admit Inpatient rehab admission?: No
[2018-10-05] MEDS ORDERED: BISMUTH SUBSALICYLATE 524 MG/30 ML UD PO PRN (18:31)
[2018-10-05] MEDS ORDERED: MENTHOL/PHENOL 1 EACH UD MM PRN (18:31)
[2018-10-05] MEDS ORDERED: MELATONIN 5 MG TABLETS PO PRN (18:31)
[2018-10-05] MEDS ORDERED: MAGNESIUM CITRATE 300 ML BOTTLE PO PRN (18:31)
[2018-10-05] MEDS ORDERED: MAGNESIUM HYDROX 2400MG/30ML ORAL SUSPENSION 30 ML CUP PO PRN (18:31)
[2018-10-05] MEDS ORDERED: METHOCARBAMOL 500 MG TABLET PO PRN (18:31)
[2018-10-05] MEDS ORDERED: chlordiazePOXIDE HCL 25 MG CAPSULE PO PRN (18:31)
[2018-10-05] MEDS ORDERED: ACETAMINOPHEN 325 MG TABLET (FP) PO PRN ×2 (18:31)
[2018-10-05] MEDS ORDERED: IBUPROFEN 400 MG TABLET (FP) PO PRN (18:31)
[2018-10-05] MEDS ORDERED: chlordiazePOXIDE HCL 25 MG CAPSULE PO ONE (18:45)
[2018-10-05] MEDS: MAG HYDROX/AL HYDROX/SIMETH 30 ML UNIT-DOSE CUP PO PRN (19:33)
[2018-10-05] MEDS: chlordiazePOXIDE HCL 25 MG CAPSULE PO SCH (22:06)
[2018-10-05] MEDS: THIAMINE HCL 100 MG TABLET (FP) PO SCH (22:06)
[2018-10-06] MEDS: ONDANSETRON *ODT* 4 MG TABLET SL PRN ×2 (05:10→17:09)
[2018-10-06] MEDS ORDERED: TRIMETHOBENZAMIDE HCL 200MG/2ML INJ IM PRN (05:55)
[2018-10-06] MEDS: chlordiazePOXIDE HCL 25 MG CAPSULE PO SCH ×4 (07:22→22:09)
--- NOTE | 2018-10-06 08:38 | EKG ---
Test Reason : Blood Pressure : / mmHG Vent. Rate : 105 BPM Atrial Rate : 105 BPM P-R Int : 168 ms QRS Dur : 088 ms QT Int : 342 ms P-R-T Axes : 035 055 042 degrees QTc Int : 452 ms SINUS TACHYCARDIA OTHERWISE NORMAL ECG WHEN COMPARED WITH ECG OF 02-JUN-2017 03:30, NO SIGNIFICANT CHANGE WAS FOUND Confirmed by GEORGES DAWN MD ([id number]) on 10/06/2018 8:37:53 AM Referred By: Confirmed By:GEORGES DAWN MD
--- NOTE | 2018-10-06 09:43 | PN ---
BHS CIWA - CIWA Score Nausea/Vomitin Muscle Tremors: 3 Anxiety: 2 Agitation: 1-Slight > Activity Paroxysmal Sweats: 3 Orientation: 0-Oriented Tacttile Disturbances: 0-None Auditory Disturbances: 0-None Visual Disturbances: 0-None Headache: 1-Very Mild CIWA-Ar Total Score: 13 BHS Progress Note (SOAP) Subjective: c/o N/V, sweats, anxiety, headache, shakes, b/l le pain Objective: 10/06/18 09:40 Vital Signs 10/06/18 10/06/18 10/06/18 02:00 02:30 03:00 Temperature Pulse Rate 81 80 80 Respiratory 18 18 18 Rate Blood Pressure 10/06/18 10/06/18 10/06/18 03:30 04:00 04:30 Temperature Pulse Rate 79 82 85 Respiratory 18 18 18 Rate Blood Pressure 10/06/18 10/06/18 10/06/18 05:00 05:30 06:00 Temperature Pulse Rate 91 H 92 H 98 H Respiratory 18 18 18 Rate Blood Pressure 10/06/18 10/06/18 10/06/18 06:04 06:30 07:00 Temperature 97.2 F L Pulse Rate 98 H 91 H 90 Respiratory 18 18 18 Rate Blood Pressure 125/78 10/06/18 10/06/18 10/06/18 07:30 08:00 09:17 Temperature 97.4 F L Pulse Rate 88 85 107 H Respiratory 18 18 18 Rate Blood Pressure 130/87 Labs pending. Assessment: 10/06/18 09:41 AOX3, in no respiratory distress, full rom, ambulating in the unit. Withdrawal symptoms. Plan: continue detox continue antiemetic prn Encourage fluids
[2018-10-06] MEDS: PRENATAL VITAMINS W/ FOLIC ACID TABLET (FP) PO SCH (10:19)
[2018-10-06 11:05] LABS: BILIRUBIN,TOTAL 1.1 mg/dL (0.2-1); BLOOD UREA NITROGEN 9.6 mg/dL (7-18); CALCIUM 8.9 mg/dL (8.5-10.1); CREATININE 0.9 mg/dL (0.55-1.3)
[2018-10-06 11:26] LABS: POTASSIUM 2.7 mmol/L (3.5-5.1)
[2018-10-06 11:49] LABS: HEMATOCRIT 42.2 % (35.4-49); HEMOGLOBIN 14.7 GM/dL (11.7-16.9); MCH 32.5 pg (25.7-33.7); MCHC 34.8 g/dl (32.0-35.9); MEAN CELL VOLUME 93.4 fl (80-96); MEAN PLT VOLUME 9.7 fl (7.5-11.1); RBC 4.52 M/mm3 (4.00-5.60); RDW 12.9 % (11.9-15.9)
[2018-10-06 12:00] LABS: EPI CELLS 2.5 /HPF (0-5/HPF); HYALINE CASTS 24 /lpf (0-8); URINE APPEARANCE TURBID; URINE BACTERIA 5.9 /hpf (NEGATIVE); URINE BILIRUBIN 1+ (NEGATIVE); URINE COLOR DK YELLOW; URINE GLUCOSE (UA) NEGATIVE (NEGATIVE); URINE KETONE 1+ (NEGATIVE); URINE LEUK ESTERASE NEGATIVE (NEGATIVE); URINE NITRITE POSITIVE (NEGATIVE); URINE PROTEIN 4+ (NEGATIVE); URINE RBC 3 /hpf (0-4); URINE WBC 2 /hpf (0-5)
[2018-10-06] MEDS ORDERED: POTASSIUM CHLORIDE TABS 20 MEQ TABLET.ER (FP) PO ONE ×2 (12:15→16:30)
--- NOTE | 2018-10-06 14:01 | PN ---
S Progress Note Note: K+ level is 2.7, potassium chloride 40meq po [id number] 4hrs apart. Potassium level to be repeated 10/07/18.
[2018-10-06 17:52] LABS: PLATELET COUNT 123 K/MM3 (134-434)
[2018-10-06] MEDS: THIAMINE HCL 100 MG TABLET (FP) PO SCH (22:09)
[2018-10-07] MEDS: chlordiazePOXIDE HCL 25 MG CAPSULE PO SCH ×3 (05:25→16:49)
--- NOTE | 2018-10-07 10:13 | PN ---
[facility] CIWA - CIWA Score Nausea/Vomitin-Mild Nausea/No Vomiting Muscle Tremors: 3 Anxiety: 2 Agitation: 2 Paroxysmal Sweats: 1-Minimal Palms Moist Orientation: 0-Oriented Tacttile Disturbances: 1-Very Mild Itch/Numbness Auditory Disturbances: 0-None Visual Disturbances: 0-None Headache: 0-None Present CIWA-Ar Total Score: 10 S Progress Note (SOAP) Subjective: tremor no headache today mild nausea after breakfast Objective: 10/07/18 10:14 Vital Signs Temperature 96.7 F L 10/07/18 09:09 Pulse Rate 101 H 10/07/18 09:09 Respiratory Rate 20 10/07/18 09:09 Blood Pressure 115/81 10/07/18 09:09 O2 Sat by Pulse Oximetry (%) Laboratory Last Values WBC 4.0 K/mm3 (4.0-10.0) 10/06/18 08:00 RBC 4.52 M/mm3 (4.00-5.60) 10/06/18 08:00 Hgb 14.7 GM/dL (11.7-16.9) 10/06/18 08:00 Hct 42.2 % (35.4-49) 10/06/18 08:00 MCV 93.4 fl (80-96) 10/06/18 08:00 MCH 32.5 pg (25.7-33.7) 10/06/18 08:00 MCHC 34.8 g/dl (32.0-35.9) 10/06/18 08:00 RDW 12.9 % (11.9-15.9) 10/06/18 08:00 Plt Count 123 K/MM3 (134-434) L D 10/06/18 08:00 MPV 9.7 fl (7.5-11.1) D 10/06/18 08:00 Sodium 139 mmol/L (136-145) 10/06/18 08:00 Potassium 2.7 mmol/L (3.5-5.1) L* 10/06/18 08:00 Chloride 97 mmol/L (98-107) L 10/06/18 08:00 Carbon Dioxide 28 mmol/L (21-32) 10/06/18 08:00 Anion Gap 14 MMOL/L (8-16) 10/06/18 08:00 BUN 9.6 mg/dL (7-18) 10/06/18 08:00 Creatinine 0.9 mg/dL (0.55-1.3) 10/06/18 08:00 Est GFR (CKD-EPI)AfAm 125.13 10/06/18 08:00 Est GFR (CKD-EPI)NonAf 107.97 10/06/18 08:00 Random Glucose 110 mg/dL (74-106) H 10/06/18 08:00 Calcium 8.9 mg/dL (8.5-10.1) 10/06/18 08:00 Total Bilirubin 1.1 mg/dL (0.2-1) H 10/06/18 08:00 AST 88 U/L (15-37) H 10/06/18 08:00 ALT 57 U/L (13-61) 10/06/18 08:00 Alkaline Phosphatase 93 U/L (45-117) 10/06/18 08:00 Total Protein 8.0 g/dl (6.4-8.2) 10/06/18 08:00 Albumin 4.0 g/dl (3.4-5.0) 10/06/18 08:00 Urine Color Dk yellow 10/06/18 09:00 Urine Appearance Turbid 10/06/18 09:00 Urine pH 6.0 (5.0-8.0) 10/06/18 09:00 Ur Specific [place] 1.039 (1.010-1.035) H 10/06/18 09:00 Urine Protein 4+ (NEGATIVE) H 10/06/18 09:00 Urine Glucose (UA) Negative (NEGATIVE) 10/06/18 09:00 Urine Ketones 1+ (NEGATIVE) H 10/06/18 09:00 Urine Blood 3+ (NEGATIVE) H 10/06/18 09:00 Urine Nitrite Positive (NEGATIVE) H 10/06/18 09:00 Urine Bilirubin 1+ (NEGATIVE) H 10/06/18 09:00 Urine Urobilinogen 1.0 mg/dL (0.2-1.0) 10/06/18 09:00 Ur Leukocyte Esterase Negative (NEGATIVE) 10/06/18 09:00 Urine WBC (Auto) 2 /hpf (0-5) 10/06/18 09:00 Urine RBC (Auto) 3 /hpf (0-4) 10/06/18 09:00 Urine Casts (Auto) 24 /lpf (0-8) 10/06/18 09:00 U Pathogenic Cast Auto /lpf (NEGATIVE) 10/06/18 09:00 U Epithel Cells (Auto) 2.5 /HPF (0-5/HPF) 10/06/18 09:00 Urine Bacteria (Auto) 5.9 /hpf (NEGATIVE) 10/06/18 09:00 RPR Titer Nonreactive (NONREACTIVE) 10/06/18 08:00 lab noted low K+ treated with K+ supplement repeat K+ pending Assessment: 10/07/18 10:15 alcohol withdrawal sx Plan: continue detox
[2018-10-07] MEDS: PRENATAL VITAMINS W/ FOLIC ACID TABLET (FP) PO SCH (10:30)
[2018-10-07] MEDS: MAG HYDROX/AL HYDROX/SIMETH 30 ML UNIT-DOSE CUP PO PRN ×2 (10:32→19:31)
[2018-10-07] MEDS: POTASSIUM CHLORIDE TABS 20 MEQ TABLET.ER (FP) PO SCH ×2 (16:49→22:09)
[2018-10-07] MEDS: THIAMINE HCL 100 MG TABLET (FP) PO SCH (22:08)
[2018-10-07] MEDS: chlordiazePOXIDE HCL 10 MG CAPSULE PO SCH (22:09)
[2018-10-07] MEDS ORDERED: chlordiazePOXIDE HCL 10 MG CAPSULE PO PRN (23:00)
[2018-10-08] MEDS: chlordiazePOXIDE HCL 10 MG CAPSULE PO SCH (05:32)
[2018-10-08 09:02] VITALS: BP 98/67; PULSE 73; TEMP 98.2
--- NOTE | 2018-10-08 11:26 | DS ---
[facility] Detox Discharge Summary Admission Date: 10/05/18 Discharge Date: 10/08/18 - History Present History: Alcohol Dependence Additional Comments: 38 years old male admitted on 10/05/18 for alcohol withdrawal stabilization feeling better today wants to be discharged and return to work patient is alert no acute distress denies suicidal ideation aftercare community self help support meeting Pertinent Past History: bring in medication list and lab report to aftercare appointment - Physical Exam Results Vital Signs: Vital Signs Temperature 98.2 F 10/08/18 09:01 Pulse Rate 73 10/08/18 09:01 Respiratory Rate 18 10/08/18 09:01 Blood Pressure 98/67 10/08/18 09:01 O2 Sat by Pulse Oximetry (%) Pertinent Admission Physical Exam Findings: alcohol withdrawal sx Vital Signs Temperature 98.2 F 10/08/18 09:01 Pulse Rate 73 10/08/18 09:01 Respiratory Rate 18 10/08/18 09:01 Blood Pressure 98/67 10/08/18 09:01 O2 Sat by Pulse Oximetry (%) Laboratory Last Values WBC 4.0 K/mm3 (4.0-10.0) 10/06/18 08:00 RBC 4.52 M/mm3 (4.00-5.60) 10/06/18 08:00 Hgb 14.7 GM/dL (11.7-16.9) 10/06/18 08:00 Hct 42.2 % (35.4-49) 10/06/18 08:00 MCV 93.4 fl (80-96) 10/06/18 08:00 MCH 32.5 pg (25.7-33.7) 10/06/18 08:00 MCHC 34.8 g/dl (32.0-35.9) 10/06/18 08:00 RDW 12.9 % (11.9-15.9) 10/06/18 08:00 Plt Count 123 K/MM3 (134-434) L D 10/06/18 08:00 MPV 9.7 fl (7.5-11.1) D 10/06/18 08:00 Sodium 139 mmol/L (136-145) 10/06/18 08:00 Potassium 3.7 mmol/L (3.5-5.1) 10/08/18 07:00 Chloride 97 mmol/L (98-107) L 10/06/18 08:00 Carbon Dioxide 28 mmol/L (21-32) 10/06/18 08:00 Anion Gap 14 MMOL/L (8-16) 10/06/18 08:00 BUN 9.6 mg/dL (7-18) 10/06/18 08:00 Creatinine 0.9 mg/dL (0.55-1.3) 10/06/18 08:00 Est GFR (CKD-EPI)AfAm 125.13 10/06/18 08:00 Est GFR (CKD-EPI)NonAf 107.97 10/06/18 08:00 Random Glucose 110 mg/dL (74-106) H 10/06/18 08:00 Calcium 8.9 mg/dL (8.5-10.1) 10/06/18 08:00 Total Bilirubin 1.1 mg/dL (0.2-1) H 10/06/18 08:00 AST 88 U/L (15-37) H 10/06/18 08:00 ALT 57 U/L (13-61) 10/06/18 08:00 Alkaline Phosphatase 93 U/L (45-117) 10/06/18 08:00 Total Protein 8.0 g/dl (6.4-8.2) 10/06/18 08:00 Albumin 4.0 g/dl (3.4-5.0) 10/06/18 08:00 Urine Color Dk yellow 10/06/18 09:00 Urine Appearance Turbid 10/06/18 09:00 Urine pH 6.0 (5.0-8.0) 10/06/18 09:00 Ur Specific [place] 1.039 (1.010-1.035) H 10/06/18 09:00 Urine Protein 4+ (NEGATIVE) H 10/06/18 09:00 Urine Glucose (UA) Negative (NEGATIVE) 10/06/18 09:00 Urine Ketones 1+ (NEGATIVE) H 10/06/18 09:00 Urine Blood 3+ (NEGATIVE) H 10/06/18 09:00 Urine Nitrite Positive (NEGATIVE) H 10/06/18 09:00 Urine Bilirubin 1+ (NEGATIVE) H 10/06/18 09:00 Urine Urobilinogen 1.0 mg/dL (0.2-1.0) 10/06/18 09:00 Ur Leukocyte Esterase Negative (NEGATIVE) 10/06/18 09:00 Urine WBC (Auto) 2 /hpf (0-5) 10/06/18 09:00 Urine RBC (Auto) 3 /hpf (0-4) 10/06/18 09:00 Urine Casts (Auto) 24 /lpf (0-8) 10/06/18 09:00 U Pathogenic Cast Auto /lpf (NEGATIVE) 10/06/18 09:00 U Epithel Cells (Auto) 2.5 /HPF (0-5/HPF) 10/06/18 09:00 Urine Bacteria (Auto) 5.9 /hpf (NEGATIVE) 10/06/18 09:00 RPR Titer Nonreactive (NONREACTIVE) 10/06/18 08:00 lab noted patient had K+ level 2.7 treated with K+ supplement upon discharge patient refuses to wait for K+ level AMA as choice of discharge method - Treatment Hospital Course: Detox Protocol Followed, Responded well Patient has Accepted a Rehab Referral to: [facility] facility - Diagnosis (1) Alcohol dependence with uncomplicated withdrawal Current Visit: Yes Status: Acute - AMA Did Patient Leave Against Medical Advice: Yes
[2018-10-08] MEDS ORDERED: chlordiazePOXIDE HCL 10 MG CAPSULE PO SCH (23:00)
== END 2018-10-08 09:40 | disposition left against medical advice (07) | DRG 770 ==
LOC: YASAS 12:41 → Y3N 18:03
PROVIDERS: ADMIT Surgery; ATTEND Surgery
PROC: HZ2ZZZZ Detoxification Services for Substance Abuse Treatment (ICD-10-PCS; principal; 2018-10-05)
DX: F10.230 Alcohol dependence with withdrawal, uncomplicated (principal); E87.6 Hypokalemia; H55.00 Unspecified nystagmus; H11.153 Pinguecula, bilateral; R76.11 Nonspecific reaction to tuberculin skin test without active tuberculosis
CPT/HCPCS: 36415; 80053; 81003; 84132; 85027; 86593; 93005; 93010; Q0162

== ENCOUNTER 2018-10-31 08:19 | Emergency (ER) | payer OTHER ==
[2018-10-31 08:23] VITALS: BMI 26.6
--- NOTE | 2018-10-31 08:39 | PDOC ---
History of Present Illness - General Chief Complaint: Nausea/Vomiting Stated Complaint: VOMITING, DRINKS ALCOHOL DAILY Time Seen by Provider: 10/31/18 08:36 History Source: Patient Exam Limitations: No Limitations - History of Present Illness Initial Comments: 38 yo m w a hx of alcohol abuse and fatty liver presents to the ER with abdominal pain, nausea, and 3 episodes of NBNB vomiting which started this morning at 6 am. The patient describes the abdominal pain as a diffuse burning sensation but the pain is worst in the epigastric region and he also endorses a burning sensation coming up his throat. He rates the pain as 8/10 but denies any radiation to his back. Patient denies any dysuria, frequency, urgency, chest pain, SOB, difficulty breathing, blurry vision, or history of alcohol withdrawal. PCP: Dr. Zepeda PSH: None reported Social Hx: Drinks half a liter of tequila daily. Denies cigarettes or other substance usage. Allergies: NKA, NKDA Past History - Past Medical History Allergies/Adverse Reactions: Allergies Allergy/AdvReac Type Severity Reaction Status Date / Time No Known Allergies Allergy Verified 10/31/18 08:23 Home Medications: Ambulatory Orders Unobtainable 10/31/18 Anemia: No Asthma: No Cancer: No Cardiac Disorders: No CVA: No COPD: No CHF: No Dementia: No Diabetes: No GI Disorders: No Disorders: No HTN: No Hypercholesterolemia: No Kidney Stones: No Liver Disease: No Seizures: No Thyroid Disease: No Other medical history: alcohol abuse - Surgical History Abdominal Surgery: No Appendectomy: No Cardiac Surgery: No Cholecystectomy: No Lung Surgery: No Neurologic Surgery: No Orthopedic Surgery: No - Reproductive History Testicular Surgery: No - Immunization History Immunization Up to Date: Yes - Suicide/Smoking/Psychosocial Hx Smoking History: Never smoked Have you smoked in the past 12 months: No Information on smoking cessation initiated: No Hx Alcohol Use: Yes (daily) Drug/Substance Use Hx: No Substance Use Type: Alcohol Hx Substance Use Treatment: Yes (multiple detox) Review of Systems - Review of Systems Able to Perform ROS?: Yes Comments:: CONSTITUTIONAL: Absent: fever, no chills, no fatigue EYES: Absent: visual changes ENT: Absent: ear pain, no sore throat CARDIOVASCULAR: Absent: chest pain, no palpitations RESPIRATORY: Absent: cough, no SOB GI: Present: Abdominal pain, nausea, vomiting Absent: no constipation, no diarrhea GENITOURINARY: Absent: dysuria, no frequency, no hematuria MUSKULOSKELETAL: Absent: back pain, no arthralgia, no myalgia SKIN: Absent: rash NEURO: Absent: headache *Physical Exam - Vital Signs Last Vital Signs Temp Pulse Resp BP Pulse Ox 98.5 F 110 H 19 121/82 100 10/31/18 08:21 10/31/18 08:21 10/31/18 08:21 10/31/18 08:21 10/31/18 08:21 - Physical Exam Comments: GENERAL: Patient is vomiting in bed. Well-nourished. HEENT: Mild tongue fasciculations. Normocephalic, atraumatic. PERRL, EOM intact. CARDIOVASCULAR: Tachycardic rate. Normal S1, S2. Regular rhythm. PULMONARY: No evidence of respiratory distress. Lungs clear to auscultation bilaterally. No wheezing, rales or rhonchi. ABDOMEN: There is mild epigastric TTP. There is also rlq and llq discomfort. The abdomen is soft and not peritoneal. It is non-distended, with no rebound or guarding. There are normal bowel sounds. EXTREMITIES: Normal ROM in all four extremities. No gross deformities. SKIN: Warm, dry. No rash NEUROLOGICAL: No focal neurological deficits. Heart Score/ECG Review - ECG Intrepretation Rhythm: Regular Rhythm - [place]: Normal - ST and T Early Repolarization: No Non Specific ST-T Wave changes: No Flattened T Waves: No Prolonged Q-T Interval: No - ECG Impressions Normal ECG: Yes Non-specific ST Elevation: No Ischemic Changes: No ED Treatment Course - LABORATORY CBC & Chemistry Diagram: 10/31/18 08:54 10/31/18 08:41 - RADIOLOGY Radiograph Interpretation: RUQ US: Limited abdominal ultrasound. HISTORY: 38-year-old male with right upper quadrant pain TECHNIQUE: Real-time limited abdominal ultrasound with color-flow Doppler was performed by the nuclear technologist. Comparison is made to prior study dated 02/28/2019. FINDINGS: The liver is upper normal in size measuring 17.2 cm in length. The hepatic parenchyma is echogenic in texture with no evidence of focal lesion. No gallstones are seen. No gallbladder wall thickening or pericholecystic fluid is seen. No sonographic Shafer's sign was elicited. The CBD is dilated measuring 9 mm in diameter. The visualized portion of the pancreas appear unremarkable. The most distal aspect of the pancreatic tail is obscured by bowel gas. The right kidney measures 11.0 x 4.3 x 4.7 cm. The right renal parenchymal echogenicity is within normal limits. There is no right renal masses, stones, cysts or hydronephrosis. The visualized portions of the abdominal aorta and IVC appear unremarkable. The proximal abdominal aorta measures 1.8 cm in diameter. The main portal vein is patent with hepatopedal flow seen. IMPRESSION: Dilated CBD measuring up to 9 mm, previously 4-5 mm. Findings are nonspecific and could be secondary to distal CBD stone, stricture or obstructive lesion. Correlation with LFTs and bilirubin level is needed. MRI with MRCP may be obtained for further evaluation. No cholelithiasis or sonographic evidence of cholecystitis. Fatty infiltration of the liver. CTAP: Right lower quadrant pain CT scan of the abdomen and pelvis following oral and intravenous contrast. Coronal and sagittal reformatted images were obtained 100 cc of Omnipaque 350 was intravenously injected Comparison: Prior CT scan of the abdomen and pelvis dated 08/22/2015 Visualized lung base appears unremarkable and the heart is within normal limits in size. There is borderline hepatomegaly with the liver measuring 18 cm in craniocaudal length with diffuse these attenuation compatible with previously described hepatic steatosis. Gallbladder is adequately distended without gross intraluminal stones or wall thickening. Nondistended stomach limiting evaluation of its wall. The spleen, pancreas, both adrenal glands and both kidneys appear unremarkable. There is no evidence of small bowel obstruction. Normal-appearing terminal ileum and appendix. Normal stool burden: Without wall thickening. Scattered diverticula are present without evidence of acute diverticulitis. Partially distended urinary bladder without wall thickening. Slightly prominent prostate gland measuring 5 x 3.5 cm in transverse and AP dimension Visualized osseous structures appear intact IMPRESSION: Borderline hepatomegaly with the diffuse fatty infiltration. Scattered diverticula in the colon without evidence of acute diverticulitis. Prominent prostate gland. Tiny fat-containing umbilical hernia. No free fluid, free air or enlarged lymph nodes in the abdomen pelvis. No CT evidence of an acute process is identified Medical Decision Making - Medical Decision Making 38 yo m w a hx of alcohol abuse and fatty liver presents to the ER with abdominal pain, nausea, and 3 episodes of NBNB vomiting which started this morning at 6 am. The patient describes the abdominal pain as a diffuse burning sensation but the pain is worst in the epigastric region and he also endorses a burning sensation coming up his throat. He rates the pain as 8/10 but denies any radiation to his back. Vital Signs Temp Pulse Resp BP Pulse Ox 98.5 F 110 H 19 121/82 100 10/31/18 08:21 10/31/18 08:21 10/31/18 08:21 10/31/18 08:21 10/31/18 08:21 DDx IBNLT: Pancreatitis, fatty liver, cholecystitis, alcohol withdrawal, GERD, gastritis, PUD, appendicitis, diverticulitis, electrolyte/metabolic disturbance , Referred Cardiac pain, esophagitis, galo julian/boerhave. - Given tachycardia and tongue fasciculations will give patient 50 mg of librium for withdrawal. Plan: Labs, Urine, EKG, RUQ US, CTAP, analgesia, anti-emetics, GI cocktail, IV hydration, re-assess. EKG: Normal sinus at a rate of 90. QTc 440. AR 180. Normal axis. Labs: Mild transaminitis with elevation of AST/ALT, otherwise unremarkable with a normal lipase. Urine: 1+ ketones, no blood or signs of infection. RUQ US: Unremarkable. CBD is dilated CTAP: Fatty liver, essentially no acute process. Full report above. Disposition: Patient is going to be discharged from the hospital and agrees to [facility] for alcohol detox Spoke with Library Assistant at [facility] who says they have beds and patient can be transfered over to [facility]. - [id number] for nurse to call at [facility] to give report - Name, info, etc. - I called [facility] and gave report *DC/Admit/Observation/Transfer Diagnosis at time of Disposition: Fatty liver, Alcohol withdrawal - Discharge Dispostion Disposition: HOME Condition at time of disposition: Improved Decision to Admit order: No - Referrals Referrals: [facility] [place] [Provider Group] - Patient Instructions Printed Discharge Instructions: DI for Vomiting -- Adult, DI for Alcohol Abuse Additional Instructions: You came into the ER with abdominal pain, nausea, and vomiting. We believe you were experiencing alcohol withdrawal and other side effects from drinking too much. We arranged for you to head to our De-tox facility [facility]. Come back to the ER immediately if you feel the need to drink or have any other new or worsening concerns. Thank you for coming to the [facility]. We hope you feel better soon! Print Language: HONDURAN - Post Discharge Activity
[2018-10-31] MEDS ORDERED: ONDANSETRON 4 MG/2 ML VIAL IVPUSH ONE (08:41)
[2018-10-31] MEDS ORDERED: ACETAMINOPHEN 1000 MG/100 ML VIAL (NON FORMULARY) IVPB ONE (08:41)
[2018-10-31] MEDS ORDERED: SODIUM CHLORIDE 1,000 ML IV STA (08:41)
[2018-10-31] MEDS ORDERED: FAMOTIDINE 20 MG/50 ML IVPB 20 MG/50 ML MG IVPB ONE ×2 (08:41→09:36)
[2018-10-31] MEDS ORDERED: MAG HYDROX/AL HYDROX/SIMETH -MYLANTA- ORAL SUSPENSION PO ONE (08:42)
[2018-10-31] MEDS ORDERED: ACETAMINOPHEN INJECTION 100 ML IVPB ONE (08:51)
[2018-10-31] MEDS ORDERED: MAG HYDROX/AL HYDROX/SIMETH 30 ML UNIT-DOSE CUP ONE (08:51)
[2018-10-31] MEDS ORDERED: ONDANSETRON 4 MG/2 ML VIAL ONE (08:52)
[2018-10-31 09:13] LABS: BASO % 0.9 % (0-2.0); EOS % 0.8 % (0-4.5); HEMATOCRIT 44.9 % (35.4-49); HEMOGLOBIN 15.3 GM/dL (11.7-16.9); LYMPH % 29.6 % (8-40); MCH 32.5 pg (25.7-33.7); MCHC 34.1 g/dl (32.0-35.9); MEAN CELL VOLUME 95.2 fl (80-96); MEAN PLT VOLUME 8.6 fl (7.5-11.1); MONO % 6.6 % (3.8-10.2); NEUT % 62.1 % (42.8-82.8); PLATELET COUNT 156 K/MM3 (134-434); RBC 4.72 M/mm3 (4.00-5.60); RDW 13.8 % (11.9-15.9); WHITE BLOOD COUNT 3.3 K/mm3 (4.0-10.0)
[2018-10-31 09:22] LABS: INR 0.92 (0.83-1.09); PROTHROMBIN TIME (PATIENT) 10.9 SEC (9.7-13.0)
[2018-10-31 09:22] LABS: EPI CELLS 0.4 /HPF (0-5/HPF); HYALINE CASTS 1 /lpf (0-8); URINE APPEARANCE CLEAR; URINE BACTERIA 2.2 /hpf (NEGATIVE); URINE BILIRUBIN NEGATIVE (NEGATIVE); URINE COLOR YELLOW; URINE GLUCOSE (UA) NEGATIVE (NEGATIVE); URINE KETONE TRACE (NEGATIVE); URINE LEUK ESTERASE NEGATIVE (NEGATIVE); URINE NITRITE NEGATIVE (NEGATIVE); URINE PROTEIN 1+ (NEGATIVE); URINE RBC 2 /hpf (0-4); URINE WBC 1 /hpf (0-5)
[2018-10-31 09:44] LABS: ALBUMIN 4.2 g/dl (3.4-5.0); BLOOD UREA NITROGEN 10.7 mg/dL (7-18); CALCIUM 8.6 mg/dL (8.5-10.1); MAGNESIUM 2.5 mg/dL (1.8-2.4); PHOSPHOROUS 3.1 mg/dL (2.5-4.9); POTASSIUM 3.9 mmol/L (3.5-5.1); TOT PROT 8.5 g/dl (6.4-8.2)
[2018-10-31] MEDS ORDERED: chlordiazePOXIDE HCL 25 MG CAPSULE ONE (09:50)
[2018-10-31] MEDS ORDERED: chlordiazePOXIDE HCL 25 MG CAPSULE PO ONE (09:50)
[2018-10-31 11:11] VITALS: TEMP 98.7
[2018-10-31] MEDS ORDERED: FOLIC ACID INJECTION - 1 MG, THIAMINE HCL 100 MG, MULTIVIT INJECTION ADULT 10 ML in SOD... IVPB ONE (11:29)
--- NOTE | 2018-10-31 11:30 | PDOC ---
Documentation entered by Laurent Woods SCRIBE, acting as scribe for Ishmael Garay MD. Ishmael Garay MD: This documentation has been prepared by the Chuck de la cruz Joel, SCRIBE, under my direction and personally reviewed by me in its entirety. I confirm that the documentation accurately reflects all work, treatment, procedures, and medical decision making performed by me. Attending Attestation - Resident Resident Name: Sukhwinder Castelan - ED Attending Attestation I have performed the following: I have examined & evaluated the patient, The case was reviewed & discussed with the resident, I agree w/resident's findings & plan, Exceptions are as noted - HPI HPI: 10/31/18 09:47 The patient is a 38 year old male with a significant PMH of alcohol abuse and fatty liver who presents to the emergency department for evaluation of abdominal pain, nausea, and 3 episodes of NBNB vomiting beginning approximately 4 hours ago. Pt states that he has been drinking daily for 2 weeks. He drinks a half a bottle of tequila at a time. Last drink was this morning. He describes the abdominal pain as a generalized burning with radiation up to his throat. The patient denies chest pain, shortness of breath, headache and dizziness. Denies fever, chills, diarrhea and constipation. Denies dysuria, frequency, urgency and hematuria. Allergies: NKA Past surgical history: None reported. Social history: Daily alcohol abuse. No reported cigarette or drug use. PCP: Dr. Zepeda - Physicial Exam PE: 10/31/18 11:28 "GENERAL: Awake, alert, and fully oriented, in no acute distress. HEAD: No signs of trauma EYES: PERRLA, EOMI, sclera anicteric, conjunctiva clear ENT: Auricles normal inspection, hearing grossly normal, nares patent, oropharynx clear without exudates. Moist mucosa NECK: Nontender, no stepoffs, Normal ROM, supple, no lymphadenopathy, JVD, or masses LUNGS: Breath sounds equal, clear to auscultation bilaterally. No wheezes, and no crackles HEART: Regular rate and rhythm, normal S1 and S2, no murmurs, rubs or gallops ABDOMEN: + R sided abdominal TTP, normoactive bowel sounds. No guarding, no rebound. No masses EXTREMITIES: Normal range of motion, no edema. No clubbing or cyanosis. No cords, erythema, or tenderness NEUROLOGICAL: Cranial nerves II through XII intact. 5/5 strength and sensation in all extremities, Normal speech, normal gait, normal cerebellar function SKIN: Warm, Dry, normal turgor, no rashes or lesions noted. - Medical Decision Making 10/31/18 11:29 38 M with abdominal pain + N+V after drinking. Suspect alcoholic gastritis. Will r/o chika vs appy given R sided tenderness on exam. - Labs, lipase - RUQ Sono - CTAP - IVF, GI cocktail 10/31/18 15:42 Labs wnl RUQ sono with CBD dilation but normal LFTs and bili CT unremarkable Pt interested in detox at [facility]. Will have ict security specialist to [facility]. Pt is well appearing, with normal vitals. Clinically stable for DC at this time. I discussed the physical exam findings, ancillary test results and final diagnoses with the patient. I answered all of the patient's questions. The patient was satisfied with the care received and felt comfortable with the discharge plan and treatment plan. The patient agrees to follow up with the primary care physician within 24-72 hours.
[2018-10-31] MEDS ORDERED: LORazepam 2 MG/ML SDV VIAL ONE (11:31)
[2018-10-31 16:00] VITALS: BP 121/77; PULSE 96
--- NOTE | 2018-11-01 10:21 | EKG ---
Test Reason : Blood Pressure : / mmHG Vent. Rate : 090 BPM Atrial Rate : 090 BPM P-R Int : 180 ms QRS Dur : 086 ms QT Int : 360 ms P-R-T Axes : 045 055 050 degrees QTc Int : 440 ms NORMAL SINUS RHYTHM NORMAL ECG WHEN COMPARED WITH ECG OF 05-OCT-2018 18:19, NO SIGNIFICANT CHANGE WAS FOUND Confirmed by ANEUDY GONZALES MD ([id number]) on 11/01/2018 10:21:08 AM Referred By: Confirmed By:ANEUDY GONZALES MD
== END 2018-10-31 16:54 | disposition home or self-care (01) ==
LOC: JER 08:19
PROC: 3E033NZ Introduction of Analgesics, Hypnotics, Sedatives into Peripheral Vein, Percutaneous Approach (ICD-10-PCS; principal; 2018-10-31)
PROC: 3E033GC Introduction of Other Therapeutic Substance into Peripheral Vein, Percutaneous Approach (ICD-10-PCS; 2018-10-31)
PROC: 3E0337Z Introduction of Electrolytic and Water Balance Substance into Peripheral Vein, Percutaneous Approach (ICD-10-PCS; 2018-10-31)
DX: K76.0 Fatty (change of) liver, not elsewhere classified (principal); F10.239 Alcohol dependence with withdrawal, unspecified
CPT/HCPCS: 36415; 74177-TC; 76705-TC; 80053; 81003; 83690; 83735; 84100; 84484; 85025; 85610; 93005; 93010; 99284-25; J0131; J7030

== ENCOUNTER 2018-10-31 16:46 | Inpatient (IN) | payer OTHER ==
[2018-10-31 17:20] VITALS: BMI 28.2
--- NOTE | 2018-10-31 18:12 | HP ---
CIWA Score Nausea/Vomitin Muscle Tremors: 4-Moderate,w/Arms Extend Anxiety: 3 Agitation: 2 Paroxysmal Sweats: 1-Minimal Palms Moist Orientation: 0-Oriented Tacttile Disturbances: 2-Mild Itch/Numbness/Burn Auditory Disturbances: 1-Very Mild Visual Disturbances: 1-Very Mild Sensitivity Headache: 1-Very Mild CIWA-Ar Total Score: 17 - Admission Criteria OASAS Guidelines: Admission for Medically Managed Detox: Requires at least one of the followin. CIWA greater than 12 2. Seizures within the past 24 hours 3. Delirium tremens within the past 24 hours 4. Hallucinations within the past 24 hours 5. Acute intervention needed for co occurring medical disorder 6. Acute intervention needed for co occurring psychiatric disorder 7. Severe withdrawal that cannot be handled at a lower level of care (continued vomiting, continued diarrhea, abnormal vital signs) requiring intravenous medication and/or fluids 8. Admission ROS [facility] Chief Complaint: Withdrawal symptoms Allergies/Adverse Reactions: Allergies Allergy/AdvReac Type Severity Reaction Status Date / Time No Known Allergies Allergy Verified 10/31/18 08:23 History of Present Illness: 38 y.o. with an extensive history of alcohol dependence. He was transferred from [facility] and was being assessed due to c/o vomiting. He was medically cleared to be evaluated for detox. Exam Limitations: No Limitations - Ebola screening Have you traveled outside of the country in the last 21 days: No (N) Have you had contact with anyone from an Ebola affected area: No Do you have a fever: No - Review of Systems Constitutional: Loss of Appetite, Unexplained wgt Loss EENT: reports: Blurred Vision Respiratory: reports: No Symptoms reported Cardiac: reports: Palpitations GI: reports: No Symptoms Reported : reports: No Symptoms Reported Musculoskeletal: reports: Neck Pain Integumentary: reports: No Symptoms Reported Neuro: reports: Headache, Seizure (ETOH induced. 5-6 yars ago.), Tremors Endocrine: reports: No Symptoms Reported Hematology: reports: Anemia Psychiatric: reports: Mood/Affect Appropiate Other Systems: Reviewed and Negative Patient History - Patient Medical History Hx Anemia: No Hx Asthma: No Hx Chronic Obstructive Pulmonary Disease (COPD): No Hx Cancer: No Hx Cardiac Disorders: No Hx Congestive Heart Failure: No Hx Hypertension: No Hx Hypercholesterolemia: No Hx Pacemaker: No HX Cerebrovascular Accident: No Hx Seizures: No Hx Dementia: No Hx Diabetes: No Hx Gastrointestinal Disorders: No Hx Liver Disease: No Hx Genitourinary Disorders: No Hx Sexually Transmitted Disorders: No Hx Renal Disease (ESRD): No Hx Thyroid Disease: No Hx Human Immunodeficiency Virus (HIV): No (last 2018 negative) Hx Hepatitis C: No Hx Depression: No Hx Suicide Attempt: No Hx Bipolar Disorder: No Hx Schizophrenia: No - Patient Surgical History Past Surgical History: No Hx Neurologic Surgery: No Hx Cataract Extraction: No Hx Cardiac Surgery: No Hx Lung Surgery: No Hx Breast Surgery: No Hx Breast Biopsy: No Hx Abdominal Surgery: No Hx Appendectomy: No Hx Cholecystectomy: No Hx Genitourinary Surgery: No Hx Section: No Hx Orthopedic Surgery: No Anesthesia Reaction: No - PPD History Previous Implant?: Yes Documented Results: Positive w/proof Implanted On Prior [facility] Admission?: Yes Date: 05/02/16 Results: 20 mm PPD to be Administered?: Yes - Reproductive History Patient is a Female of Child Bearing Age (11 -55 yrs old): No - Smoking Cessation Smoking history: Never smoked Have you smoked in the past 12 months: No Hx Chewing Tobacco Use: No Initiated information on smoking cessation: No - Substance & Tx. History Hx Alcohol Use: Yes Hx Substance Use: No Substance Use Type: Alcohol Hx Substance Use Treatment: Yes (Detox: 10/08/2018-left AMA ) - Substances abused Alcohol Frequency: Daily Amount used: 1 bottle of Tequila. Age of first use: 19 Date of last use: 10/31/18 Family Disease History - Family Disease History Family Disease History: Heart Disease: Father (ALCOHOL), Other: Father, Mother ( alcohol) Admission Physical Exam S - Vital Signs Vital Signs: Vital Signs - 24 hr 10/31/18 17:09 Temperature 99.1 F Pulse Rate 86 Respiratory 18 Rate Blood Pressure 120/79 - Physical General Appearance: Yes: Tremorous, Sweating, Anxious HEENTM: Yes: Hearing grossly Normal, Normocephalic, Normal Voice Respiratory: Yes: Chest Non-Tender, Lungs Clear, Normal Breath Sounds Neck: Yes: No masses,lesions,Nodules, Trachea in good position Breast: Yes: Breast Exam Deferred Cardiology: Yes: Regular Rhythm, Regular Rate Abdominal: Yes: Non Tender, Flat Genitourinary: Yes: Other (No complaints reported.) Musculoskeletal: Yes: Gait Steady Extremities: Yes: Tremors Neurological: Yes: Alert, Normal Mood/Affect, Normal Response Integumentary: Yes: Normal Color, Dry, Warm Lymphatic: Yes: Within Normal Limits - Diagnostic (1) History of seizure Current Visit: Yes Status: Acute (2) Alcohol dependence with uncomplicated withdrawal Current Visit: No Status: Chronic (3) Fatty liver Current Visit: Yes Status: Acute (4) Nausea and vomiting Current Visit: Yes Status: Acute Qualifiers: Vomiting type: unspecified Vomiting Intractability: unspecified Qualified Code(s): R11.2 - Nausea with vomiting, unspecified (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
[2018-10-31] MEDS ORDERED: MELATONIN 5 MG TABLETS PO PRN (18:21)
[2018-10-31] MEDS ORDERED: MAGNESIUM CITRATE 300 ML BOTTLE PO PRN (18:21)
[2018-10-31] MEDS ORDERED: IBUPROFEN 400 MG TABLET (FP) PO PRN (18:21)
[2018-10-31] MEDS ORDERED: DICYCLOMINE HCL 10 MG CAPSULE PO PRN (18:21)
[2018-10-31] MEDS ORDERED: hydrOXYzine PAMOATE 50 MG CAPSULE (FP) PO PRN (18:21)
[2018-10-31] MEDS ORDERED: chlordiazePOXIDE HCL 25 MG CAPSULE PO ONE (18:21)
[2018-10-31] MEDS ORDERED: MAG HYDROX/AL HYDROX/SIMETH 30 ML UNIT-DOSE CUP PO PRN (18:21)
[2018-10-31] MEDS ORDERED: MENTHOL/PHENOL 1 EACH UD MM PRN (18:21)
[2018-10-31] MEDS ORDERED: BISMUTH SUBSALICYLATE 524 MG/30 ML UD PO PRN (18:21)
[2018-10-31] MEDS ORDERED: ACETAMINOPHEN 325 MG TABLET (FP) PO PRN ×2 (18:21)
[2018-10-31] MEDS ORDERED: METHOCARBAMOL 500 MG TABLET PO PRN (18:21)
[2018-10-31] MEDS ORDERED: MAGNESIUM HYDROX 2400MG/30ML ORAL SUSPENSION 30 ML CUP PO PRN (18:21)
[2018-10-31] MEDS ORDERED: ONDANSETRON *ODT* 4 MG TABLET SL PRN (18:21)
[2018-10-31] MEDS ORDERED: chlordiazePOXIDE HCL 25 MG CAPSULE PO PRN (19:13)
[2018-10-31] MEDS: THIAMINE HCL 100 MG TABLET (FP) PO SCH (22:46)
[2018-10-31] MEDS: chlordiazePOXIDE HCL 25 MG CAPSULE PO SCH (22:46)
[2018-11-01] MEDS: chlordiazePOXIDE HCL 25 MG CAPSULE PO SCH ×4 (06:03→22:46)
--- NOTE | 2018-11-01 10:22 | PN ---
[facility] CIWA - CIWA Score Nausea/Vomitin-Mild Nausea/No Vomiting Muscle Tremors: 3 Anxiety: 3 Agitation: 3 Paroxysmal Sweats: 1-Minimal Palms Moist Orientation: 0-Oriented Tacttile Disturbances: 1-Very Mild Itch/Numbness Auditory Disturbances: 0-None Visual Disturbances: 0-None Headache: 2-Mild CIWA-Ar Total Score: 14 [facility] Progress Note (SOAP) Subjective: limited food toleration ensure 60 ml x 1 today due to bmi 28 that the patient agrees to have ensure one dose today Objective: 11/01/18 10:22 Vital Signs Temperature 98.5 F 11/01/18 09:24 Pulse Rate 75 11/01/18 09:24 Respiratory Rate 18 11/01/18 09:24 Blood Pressure 116/66 11/01/18 09:24 O2 Sat by Pulse Oximetry (%) 11/01/18 10:23 see 10/31/18 ER lab report Assessment: 11/01/18 10:23 alcohol withdrawal sx Plan: continue alcohol detox
[2018-11-01] MEDS: PRENATAL VITAMINS W/ FOLIC ACID TABLET (FP) PO SCH (10:31)
[2018-11-01] MEDS: THIAMINE HCL 100 MG TABLET (FP) PO SCH (22:46)
[2018-11-02] MEDS: chlordiazePOXIDE HCL 25 MG CAPSULE PO SCH ×3 (06:47→17:51)
[2018-11-02] MEDS: PRENATAL VITAMINS W/ FOLIC ACID TABLET (FP) PO SCH (10:26)
--- NOTE | 2018-11-02 13:21 | PN ---
S CIWA - CIWA Score Nausea/Vomitin Muscle Tremors: 2 Anxiety: 2 Agitation: 2 Paroxysmal Sweats: No Perspiration Orientation: 0-Oriented Tacttile Disturbances: 1-Very Mild Itch/Numbness Auditory Disturbances: 1-Very Mild Visual Disturbances: 0-None Headache: 2-Mild CIWA-Ar Total Score: 12 BHS Progress Note (SOAP) Subjective: alert,irritable,anxious,interrupted sleep,tremor Objective: 11/02/18 13:20 Vital Signs Temperature 97.2 F L 11/02/18 09:13 Pulse Rate 82 11/02/18 09:13 Respiratory Rate 16 11/02/18 09:13 Blood Pressure 98/73 11/02/18 09:13 O2 Sat by Pulse Oximetry (%) Assessment: 11/02/18 13:22 withdrawal symptom Plan: continue detox
[2018-11-02 21:34] VITALS: BP 108/72; PULSE 75; TEMP 97.9
--- NOTE | 2018-11-02 21:35 | DS ---
[facility] Detox Discharge Summary Admission Date: 10/31/18 Discharge Date: 11/02/18 - History Additional Comments: Patient is leaving against medical and was seen and evaluated in his room. He states that he has a job interview at [place] and intends to travel tomorrow morning to meet up with the requirements for his interview. Pertinent Past History: Alcohol dependence, Opioid dependence, PCP dependence, Cannabis dependence, HX of positive PPD, Occipital headache and Rhabdomyolysis - Physical Exam Results Vital Signs: Vital Signs Temperature 97.1 F L 11/02/18 18:11 Pulse Rate 84 11/02/18 18:11 Respiratory Rate 19 11/02/18 18:11 Blood Pressure 103/68 11/02/18 18:11 O2 Sat by Pulse Oximetry (%) Pertinent Admission Physical Exam Findings: Withdrawal symptoms - Medication Discharge Medications: Ambulatory Orders NK [No Known Home Medication] 10/31/18 - Diagnosis (1) Fatty liver Status: Acute (2) History of seizure Status: Acute (3) Nausea and vomiting Status: Acute Qualifiers: Vomiting type: unspecified Vomiting Intractability: unspecified Qualified Code(s): R11.2 - Nausea with vomiting, unspecified (4) Pinguecula of both eyes Status: Chronic (5) Abdominal pain Status: Acute (6) Alcohol abuse Status: Acute (7) Alcohol dependence with intoxication Status: Acute (8) Dehydration Status: Acute (9) Hypokalemia Status: Acute (10) Alcohol dependence with uncomplicated withdrawal Status: Chronic (11) Headache Status: Chronic Qualifiers: Headache type: unspecified Headache chronicity pattern: episodic headache Intractability: not intractable Qualified Code(s): R51 - Headache (12) History of positive PPD Status: Chronic - AMA Did Patient Leave Against Medical Advice: Yes
[2018-11-03] MEDS ORDERED: chlordiazePOXIDE HCL 10 MG CAPSULE PO PRN
[2018-11-03] MEDS ORDERED: chlordiazePOXIDE HCL 10 MG CAPSULE PO SCH (05:00)
[2018-11-04] MEDS ORDERED: chlordiazePOXIDE HCL 10 MG CAPSULE PO SCH (05:00)
[2018-11-05] MEDS ORDERED: chlordiazePOXIDE HCL 10 MG CAPSULE PO ONE (05:00)
== END 2018-11-02 21:37 | disposition left against medical advice (07) | DRG 770 ==
LOC: YASAS 16:46 → Y3N 18:51
PROVIDERS: ADMIT Surgery; ATTEND Surgery
PROC: HZ2ZZZZ Detoxification Services for Substance Abuse Treatment (ICD-10-PCS; principal; 2018-10-31)
DX: F10.230 Alcohol dependence with withdrawal, uncomplicated (principal); E87.6 Hypokalemia; K76.0 Fatty (change of) liver, not elsewhere classified; R11.2 Nausea with vomiting, unspecified; R51 Headache; R10.9 Unspecified abdominal pain; R76.11 Nonspecific reaction to tuberculin skin test without active tuberculosis; H11.053 Peripheral pterygium, progressive, bilateral; Z86.69 Personal history of other diseases of the nervous system and sense organs

== ENCOUNTER 2019-01-01 11:34 | Emergency (ER) | payer OTHER ==
[2019-01-01 11:41] VITALS: BMI 28.4
--- NOTE | 2019-01-01 12:22 | PDOC ---
History of Present Illness - General Chief Complaint: Alcohol intoxication Stated Complaint: LT HAND THUMB INJURY Time Seen by Provider: 01/01/19 12:05 Past History - Past Medical History Allergies/Adverse Reactions: Allergies Allergy/AdvReac Type Severity Reaction Status Date / Time No Known Allergies Allergy Verified 01/01/19 11:41 Home Medications: Ambulatory Orders NK [No Known Home Medication] 10/31/18 Anemia: No Asthma: No Cancer: No Cardiac Disorders: No CVA: No COPD: No CHF: No Dementia: No Diabetes: No GI Disorders: No Disorders: No HTN: No Hypercholesterolemia: No Kidney Stones: No Liver Disease: No Seizures: No Thyroid Disease: No - Surgical History Abdominal Surgery: No Appendectomy: No Cardiac Surgery: No Cholecystectomy: No Lung Surgery: No Neurologic Surgery: No Orthopedic Surgery: No - Reproductive History Testicular Surgery: No - Immunization History Immunization Up to Date: Yes - Suicide/Smoking/Psychosocial Hx Smoking History: Never smoked Have you smoked in the past 12 months: No Hx Alcohol Use: Yes (DAILY) Drug/Substance Use Hx: No Substance Use Type: Alcohol Hx Substance Use Treatment: Yes (multiple detox) *Physical Exam - Vital Signs Last Vital Signs Temp Pulse Resp BP Pulse Ox 98.2 F 124 H 16 140/77 94 L 01/01/19 11:38 01/01/19 11:38 01/01/19 11:38 01/01/19 11:38 01/01/19 11:38
--- NOTE | 2019-01-01 12:23 | PDOC ---
Attending Attestation - Resident Resident Name: DeepikaKenzie - ED Attending Attestation I have performed the following: I have examined & evaluated the patient, The case was reviewed & discussed with the resident, I agree w/resident's findings & plan, Exceptions are as noted - HPI HPI: 01/01/19 12:21 38y M hx of etoh abuse, was drinking last night, fell several times last night including head injury and sustained a thumb laceration. pt states he dranks multiple liters daily of etoh, last was 2 bottles of whiskey this morning. pt also endorses vomiging streaked with blood and having dark colored stool. denies any cp, sob, abd pain, headache. GENERAL: The patient is awake, alert, and fully oriented, Nontoxic - in no acute distress. HEAD: Normocephalic, atraumatic. EYES: extraocular movements intact, sclera anicteric, conjunctiva clear. ENT: Normal voice, Moist mucous membranes. NECK: Normal range of motion, supple LUNGS: Breath sounds equal, clear to auscultation bilaterally. No wheezes, no rhonchi, no rales. HEART: tachycardic ABDOMEN: Soft, nontender, No guarding, no rebound. No CVA tenderness EXTREMITIES: Normal range of motion, no edema. NEUROLOGICAL: No facial assymetry, Normal speech, moving all 4 extremities spontaneously and symmetrically, not significantly tremulous PSYCH: Normal mood, normal affect. SKIN: Warm, Dry, normal turgor, superficial thumb laceration on L thumb, ddx - head ct to r/o injury, tachycardia - possible withdrawal vs gib - awaiting stool guaic, cbc, cmp, vbg, t&s superficial thumb lac - will irrigate and allow closure by secondary intension will update tetenaus
[2019-01-01] MEDS ORDERED: SODIUM CHLORIDE 0.9% 500 ML INFUS.BAG IV ONE (12:38)
--- NOTE | 2019-01-01 12:39 | PDOC ---
History of Present Illness - General Chief Complaint: Alcohol intoxication Stated Complaint: LT HAND THUMB INJURY Time Seen by Provider: 01/01/19 12:05 - History of Present Illness Initial Comments: Laurent Santiago is a 38yo man with a PMH of alcohol abuse who presents with a left thumb laceration and multiple abrasions after falling while intoxicated last night. He reports that he had 2 bottles of tequila in the evening and overnight. He fell initially at about 8pm, at which point he sustained the thumb laceration. He continued to drink throughout the night and reports falling at least 2 more times. He did hit his head during one of the falls but is not sure whether he lost consciousness. Mr Santiago reports that he generally drinks 2 bottles of tequila daily. He has gone to detox/rehab in the past, most recently this summer, but has always started drinking again. He would be interested in potentially going to rehab again. He reports that he does have symptoms of withdrawal if he does not drink , and he has had seizures in the past. Past History - Past Medical History Allergies/Adverse Reactions: Allergies Allergy/AdvReac Type Severity Reaction Status Date / Time No Known Allergies Allergy Verified 01/01/19 11:41 Home Medications: Ambulatory Orders Cephalexin [Keflex] 500 mg PO Q12H #14 capsule 01/01/19 Anemia: No Asthma: No Cancer: No Cardiac Disorders: No CVA: No COPD: No CHF: No Dementia: No Diabetes: No GI Disorders: No Disorders: No HTN: No Hypercholesterolemia: No Kidney Stones: No Liver Disease: No Seizures: No Thyroid Disease: No - Surgical History Abdominal Surgery: No Appendectomy: No Cardiac Surgery: No Cholecystectomy: No Lung Surgery: No Neurologic Surgery: No Orthopedic Surgery: No - Reproductive History Testicular Surgery: No - Immunization History Immunization Up to Date: Yes - Suicide/Smoking/Psychosocial Hx Smoking History: Never smoked Have you smoked in the past 12 months: No Hx Alcohol Use: Yes (DAILY) Drug/Substance Use Hx: No Substance Use Type: Alcohol Hx Substance Use Treatment: Yes (multiple detox) Review of Systems - Review of Systems Comments:: General: No fevers, no chills, no weight or appetite change, no malaise HEENT: No changes in vision, no changes in hearing, no congestion, no sore throat CV: No chest pain, no palpitations, no LE edema Pulm: No SOB, no cough, no wheezing GI: No nausea, + vomiting, no change in bowel habits, +dark stool : No frequency, no urgency, no dysuria Musc: No back pain, no joint swelling, no recent injury Skin: No rash, no lesions, no erythema Endo: No excessive thirst, no heat/cold intolerance Heme: No unusual bruising or bleeding, no swollen glands Neuro: Unknown syncope, no numbness/tingling, no focal weakness Vasc: No claudication Psych: No recent change in mood, no SI or HI *Physical Exam - Vital Signs Last Vital Signs Temp Pulse Resp BP Pulse Ox 98.2 F 124 H 16 140/77 94 L 01/01/19 11:38 01/01/19 11:38 01/01/19 11:38 01/01/19 11:38 01/01/19 11:38 - Physical Exam Comments: General: In no acute distress, smells of alcohol HEENT: Atraumaic, PERRL, EOMI, MMM, voice normal, normal neck ROM, no posterior neck TTP Cards: RRR, no murmur appreciated Pulm: Comfortable on room air, clear to auscultation bilaterally Abd: Soft, nontender, nondistended Ext: Multiple abrasions to extremities, largest on L knee and R hand. Left thumb w/ flap laceration to distal tip; TTP over IP joint. No LE edema. ROM intact. WWP. Skin: Normal color, no rashes. Superficial abrasions as above Neuro: A&Ox3, CN grossly intact, normal speech, motor/sensory grossly intact and symmetric Psych: Mood appropriate to situation ED Treatment Course - LABORATORY CBC & Chemistry Diagram: 01/01/19 12:30 01/01/19 12:30 Medical Decision Making - Medical Decision Making 01/01/19 12:39 Laurent Santiago is a 38yo man with a PMH of alcohol abuse who presents with a left thumb laceration and multiple abrasions after falling while intoxicated last night; he endorses a head injury during one of the falls. - Tachycardic on arrival to 120. May be secondary to dehydration, currently no sign of withdrawal, but will send CBC and chemistry to evaluate for abnormalities - CT head due to unwitnessed fall, unknown LOC, possible head injury - 1L IVF - Hand xrays to evaluate for fracture 01/01/19 13:10 - Patient reported frequent vomiting and black stools to Dr Lee during exam. Adding FOBT, VBG, coags. - Noted to be hypoxic to 91% on RA. Added CXR - Pt taken to CT, will complete rectal exam when he returns 01/01/19 14:00 - Labs reviewed. No concerning abnormalities. Slightly elevated potassium due to hemolysis - CT head without acute pathology - Xrays to be completed 01/01/19 15:26 - Chest and hand xrays completed. No fracture or other acute pathology appreciated - Rectal exam completed. Normal tone, light frances stool. FOBT sent - Re-examined thumb laceration. Partially closed, no swelling or drainage. Will give abx and tetanus for likely contaminated wound, but no closure necessary - Librium for shaking, continued tachycardia, likely early withdrawal 01/01/19 16:59 - Wounds cleaned and dressed - Repeat HR 95, sats 95% on RA - d/c home Discussed with Dr Lee. Kenzie Poe PGY2 *DC/Admit/Observation/Transfer Diagnosis at time of Disposition: Alcohol dependence with intoxication Qualifiers: Complication of substance-induced condition: uncomplicated Qualified Code(s): F10.220 - Alcohol dependence with intoxication, uncomplicated Thumb laceration Qualifiers: Encounter type: initial encounter Damage to nail status: without damage Foreign body presence: without foreign body Laterality: left Qualified Code(s): S61.012A - Laceration without foreign body of left thumb without damage to nail , initial encounter Fall Qualifiers: Encounter type: initial encounter Qualified Code(s): W19.XXXA - Unspecified fall, initial encounter - Discharge Dispostion Condition at time of disposition: Stable - Prescriptions Prescriptions: Cephalexin [Keflex] 500 mg PO Q12H #14 capsule - Referrals Referrals: Astrid Zepeda MD [Primary Care Provider] - [facility] [place] [facility] [place] [Provider Group] - Patient Instructions Printed Discharge Instructions: DI for Alcohol Abuse Additional Instructions: Discharge Instructions: You were seen in the emergency department for a fall while intoxicated. Your thumb laceration was cleaned but does not require any stitches. Home Care and Follow Up: - You have been given an antibiotic that should be taken at home twice daily for the next week. This is to prevent infection in the thumb wound. - Keep your wound clean and dry. Change the bandage whenever necessary until the wound appears to be closing. After about 2 days you should be able to leave the wound open to air, but use a bandage if you need to protect the wound while at work. - You may have a small amount of drainage from the cut; clear to pink drainage for a day or two is expected - Seek immediate care if you see spreading redness around the wound, you have thick or bad smelling drainage, your thumb becomes more swollen, you have fever to 101F, you cannot bend your thumb, or you have any other medical emergency. - Make an appointment with your regular doctor for within the next 2-3 days for follow up of your wound. You have been given contact information for the [facility] if you need to establish care with a new doctor - Consider going back to detox or rehab for management of your alcohol abuse. Print Language: BENINESE - Post Discharge Activity
[2019-01-01 13:03] LABS: BASO % 0.6 % (0-2.0); EOS % 0.1 % (0-4.5); HEMATOCRIT 42.4 % (35.4-49); LYMPH % 31.9 % (8-40); MCH 33.6 pg (25.7-33.7); MCHC 35.4 g/dl (32.0-35.9); MEAN CELL VOLUME 94.9 fl (80-96); MEAN PLT VOLUME 8.7 fl (7.5-11.1); MONO % 4.4 % (3.8-10.2); PLATELET COUNT 195 K/MM3 (134-434); RBC 4.47 M/mm3 (4.00-5.60); RDW 13.7 % (11.9-15.9); WHITE BLOOD COUNT 5.5 K/mm3 (4.0-10.0)
[2019-01-01 13:08] LABS: VENOUS PC02 38.4 mmHg (38-52); VENOUS PH 7.46 (7.31-7.41); VENOUS PO2 65.7 mmHg (28-48)
[2019-01-01] MEDS ORDERED: DIPHTH,PERTUSS(ACELL),TET 0.5 ML DISP.SYRIN IM ONE ×2 (13:19→14:11)
[2019-01-01 13:34] LABS: PLATELET ESTIMATE ADEQUATE
[2019-01-01 13:39] LABS: INR 0.97 (0.83-1.09); PROTHROMBIN TIME (PATIENT) 11.4 SEC (9.7-13.0)
[2019-01-01 13:52] LABS: BLOOD UREA NITROGEN 12.5 mg/dL (7-18); GLUCOSE,RANDOM 96 mg/dL (74-106)
[2019-01-01 13:53] LABS: CHLORIDE 101 mmol/L (98-107); CO2 20 mmol/L (21-32); POTASSIUM 5.3 mmol/L (3.5-5.1); SODIUM 143 mmol/L (136-145)
[2019-01-01 13:54] LABS: ALBUMIN 4.2 g/dl (3.4-5.0); BILIRUBIN,TOTAL 1.1 mg/dL (0.2-1); CALCIUM 8.9 mg/dL (8.5-10.1); TOT PROT 8.3 g/dl (6.4-8.2)
[2019-01-01 13:55] LABS: SGOT/AST 103 U/L (15-37); SGPT/ALT 49 U/L (13-61)
[2019-01-01 13:56] LABS: ALK PHOS 80 U/L (45-117)
[2019-01-01] MEDS ORDERED: chlordiazePOXIDE HCL 25 MG CAPSULE PO ONE (15:35)
[2019-01-01] MEDS ORDERED: chlordiazePOXIDE HCL 25 MG CAPSULE ONE (15:40)
[2019-01-01] MEDS ORDERED: CEFAZOLIN 1 GM in DEXTROSE 5%-WATER - 50 ML IVPB ONE (16:04)
[2019-01-01] MEDS ORDERED: CEFAZOLIN 1 GM/D5W 1 GM/50 ML BAG ONE (16:09)
[2019-01-01 17:09] VITALS: BP 138/72; PULSE 92; TEMP 98.1
== END 2019-01-01 17:00 | disposition home or self-care (01) ==
LOC: JER 11:34 → SUPCPDRO 11:34 → JER 17:00
PROC: 3E0234Z Introduction of Serum, Toxoid and Vaccine into Muscle, Percutaneous Approach (ICD-10-PCS; principal; 2019-01-01)
PROC: 3E03329 Introduction of Other Anti-infective into Peripheral Vein, Percutaneous Approach (ICD-10-PCS; 2019-01-01)
DX: F10.220 Alcohol dependence with intoxication, uncomplicated (principal); S61.012A Laceration without foreign body of left thumb without damage to nail, initial encounter; S80.212A Abrasion, left knee, initial encounter; S60.511A Abrasion of right hand, initial encounter; W19.XXXA Unspecified fall, initial encounter; Z91.81 History of falling; Y93.89 Activity, other specified; Y92.89 Other specified places as the place of occurrence of the external cause; Y99.8 Other external cause status
CPT/HCPCS: 36415; 70450-TC; 71046-TC-FY; 73130-TC-LT-FY; 80053; 82272; 82803; 85025; 85610; 90471; 90715; 96365; 99283-25

== ENCOUNTER 2019-03-13 20:50 | Emergency (ER) | payer SELFPAY ==
[2019-03-13 21:07] VITALS: BMI 22.8
--- NOTE | 2019-03-13 21:27 | PDOC ---
History of Present Illness - General Chief Complaint: Injury Stated Complaint: INTOX/FALL Time Seen by Provider: 03/13/19 21:08 - History of Present Illness Initial Comments: 03/13/19 21:26 38 yo M PMH alcohol us p/w fall. Patient reports drinking today, feeling dizzy like "room was spinning", fell backwards and hit the back of his head. Denies LOC. Complains of occipital headache, ongoing dizziness, b/l calf pain, and feeling like his heart is racing. Denies CP, SOB, abd pain, fevers/chills, constipation/diarrhea. Reports drinking 2 bottles of tequila daily, most recently right before coming to the ED. He has gone to detox/rehab in the past, most recently this summer, but has always started drinking again. He would be interested in potentially going to rehab again. He reports that he does have symptoms of withdrawal if he does not drink, and has had seizures in the past. Past History - Past Medical History Allergies/Adverse Reactions: Allergies Allergy/AdvReac Type Severity Reaction Status Date / Time No Known Allergies Allergy Verified 03/13/19 21:00 Home Medications: Ambulatory Orders Cephalexin [Keflex] 500 mg PO Q12H #14 capsule 01/01/19 Anemia: No Asthma: No Cancer: No Cardiac Disorders: No CVA: No COPD: No CHF: No Dementia: No Diabetes: No GI Disorders: No Disorders: No HTN: No Hypercholesterolemia: No Kidney Stones: No Liver Disease: No Seizures: No Thyroid Disease: No - Surgical History Abdominal Surgery: No Appendectomy: No Cardiac Surgery: No Cholecystectomy: No Lung Surgery: No Neurologic Surgery: No Orthopedic Surgery: No - Reproductive History Testicular Surgery: No - Immunization History Immunization Up to Date: Yes - Psycho Social/Smoking Cessation Hx Smoking History: Never smoked Have you smoked in the past 12 months: No Hx Alcohol Use: Yes (DAILY) Drug/Substance Use Hx: No Substance Use Type: Alcohol Hx Substance Use Treatment: Yes (multiple detox) Review of Systems - Review of Systems Comments:: 03/13/19 21:42 GENERAL/CONSTITUTIONAL: No fever or chills. No weakness. HEAD, EYES, EARS, NOSE AND THROAT: No change in vision. No ear pain or discharge. No sore throat. CARDIOVASCULAR: No chest pain or shortness of breath. RESPIRATORY: No cough, wheezing, or hemoptysis. GASTROINTESTINAL: No nausea, vomiting, diarrhea or constipation. GENITOURINARY: No dysuria, frequency, or change in urination. MUSCULOSKELETAL: No joint or muscle swelling or pain. No neck or back pain. SKIN: No rash NEUROLOGIC: Occipital headache, "room spinning" dizziness. Denies loss of consciousness, or change in strength/sensation. ENDOCRINE: No increased thirst. No abnormal weight change. HEMATOLOGIC/LYMPHATIC: No anemia, easy bleeding, or history of blood clots. ALLERGIC/IMMUNOLOGIC: No hives or skin allergy *Physical Exam - Vital Signs Last Vital Signs Temp Pulse Resp BP Pulse Ox 97.5 F L 84 16 128/80 96 03/13/19 21:06 03/13/19 21:06 03/13/19 21:06 03/13/19 21:06 03/13/19 21:06 - Physical Exam Comments: 03/13/19 21:43 Gen: clinically intoxicated, smelling of alcohol, in a C-collar Neuro: AAOX3 (thought year was 1988), CN II-XII intact, FTN intact, EOMI, PERRLA , b/l horizontal nystagmus, 5/5 strength, SILT HEENT: atraumatic, normocephalic, dry mucous membranes Neck: trachea midline, supple CV: regular rate in the 90s, regular rhythm, no murmurs, rubs, or gallops Pulm: CTA b/l, no wheezing Abd: soft, non-distended, non-tender MSK: full ROM, intact pulses Extr: no edema, no deformities Skin: warm, dry ED Treatment Course - LABORATORY CBC & Chemistry Diagram: 03/13/19 23:05 03/13/19 23:05 Medical Decision Making - Medical Decision Making 03/13/19 21:46 38 yo M with acute alcohol intoxication, presenting after fall. - CT head non con - CT C-spine non con - CBC, CMP, Mg - banana bag - reassess Discharge - Discharge Information Problems reviewed: Yes Clinical Impression/Diagnosis: Alcohol abuse Fall Qualifiers: Encounter type: initial encounter Qualified Code(s): W19.XXXA - Unspecified fall, initial encounter Alcohol dependence with intoxication Qualifiers: Complication of substance-induced condition: uncomplicated Qualified Code(s): F10.220 - Alcohol dependence with intoxication, uncomplicated Condition: Stable Disposition: TRANSFER ACUTE CARE/OTHER HOSP - Follow up/Referral - Patient Discharge Instructions Patient Printed Discharge Instructions: Alcohol Use Disorder Additional Instructions: Alcohol Discharge: 1) Please do not drink alcohol or ingest any mind-altering substances and drive or make important decisions. Please cut down on your substance use/abuse. 2) You were given information about substance use/abuse. Please review this literature. 3) If you have any worsening of symptoms please return to the ED immediately. 4) Please follow-up with your primary care doctor in the next 5-7 days for evaluation of symptoms. Please stop drinking to excess. Return to ED for seizures, shaking, confusion, intractable vomiting, blood in vomit or any other concerning symptoms. Please do not drink and drive. - Post Discharge Activity
[2019-03-13] MEDS ORDERED: FOLIC ACID INJECTION - 1 MG, THIAMINE HCL 100 MG, MULTIVIT INJECTION ADULT 10 ML in SOD... IVPB ONE (21:47)
--- NOTE | 2019-03-13 21:50 | PDOC ---
Documentation entered by Mari Santiago SCRIBE, acting as scribe for Scotty Romano MD. Scotty Romano MD: This documentation has been prepared by the Pamela de la cruz Sammi, SCRIBE, under my direction and personally reviewed by me in its entirety. I confirm that the documentation accurately reflects all work, treatment, procedures, and medical decision making performed by me. Attending Attestation - Resident Resident Name: Jarad Andrade - ED Attending Attestation I have performed the following: I have examined & evaluated the patient, The case was reviewed & discussed with the resident, I agree w/resident's findings & plan, Exceptions are as noted - HPI HPI: 03/13/19 21:35 The patient is a 38 year old male with PMH of alcohol abuse who presents for evaluation of intoxication with associated dizziness and fall around 8pm tonight. He is currently complaining of headache and dizziness. - Physicial Exam PE: 03/13/19 21:47 Patient is awake and alert, in no distress, alcohol on breath noted Normocephalic, atraumatic PERRLA, EOMI, no scleral icterus Neck: No bony tenderness, no deformity, c-collar applied mm-dry CTA RRR Abdomen soft, nontender, nondistended Pelvis stable No lower extremity edema or deformity - Medical Decision Making 03/13/19 21:49 Patient is 38-year-old male with history of alcohol abuse who presents to the ER with signs and symptoms of acute alcohol intoxication and closed head injury. Will obtain CT of head and cervical spine. Will administer IV thiamine and multivitamins. Will obtain CBC/CMP/mag. Will reassess to clinical sobriety.
[2019-03-13 23:17] LABS: BASO % 1.1 % (0-2.0); EOS % 0.5 % (0-4.5); HEMATOCRIT 47.7 % (35.4-49); HEMOGLOBIN 16.2 GM/dL (11.7-16.9); LYMPH % 45.2 % (8-40); MCH 33.3 pg (25.7-33.7); MCHC 33.9 g/dl (32.0-35.9); MEAN CELL VOLUME 98.3 fl (80-96); MEAN PLT VOLUME 8.4 fl (7.5-11.1); NEUT % 45.2 % (42.8-82.8); PLATELET COUNT 230 K/MM3 (134-434); RBC 4.86 M/mm3 (4.00-5.60); RDW 14.6 % (11.9-15.9); WHITE BLOOD COUNT 4.4 K/mm3 (4.0-10.0)
[2019-03-13 23:55] LABS: ALBUMIN 4.6 g/dl (3.4-5.0); BILIRUBIN,TOTAL 0.9 mg/dL (0.2-1); BLOOD UREA NITROGEN 5.4 mg/dL (7-18); CALCIUM 8.9 mg/dL (8.5-10.1); CREATININE 0.8 mg/dL (0.55-1.3); MAGNESIUM 2.4 mg/dL (1.8-2.4); POTASSIUM 3.4 mmol/L (3.5-5.1); TOT PROT 8.3 g/dl (6.4-8.2)
--- NOTE | 2019-03-14 02:29 | PDOC ---
*Physical Exam - Vital Signs Last Vital Signs Temp Pulse Resp BP Pulse Ox 97.5 F L 84 16 128/80 96 03/13/19 21:06 03/13/19 21:06 03/13/19 21:06 03/13/19 21:06 03/13/19 21:06 ED Treatment Course - LABORATORY CBC & Chemistry Diagram: 03/13/19 23:05 03/13/19 23:05 - ADDITIONAL ORDERS Additional order review: Laboratory Results 03/13/19 03/13/19 23:05 23:05 Sodium 140 Potassium 3.4 L Chloride 102 Carbon Dioxide 29 Anion Gap 9 BUN 5.4 L Creatinine 0.8 Est GFR (CKD-EPI)AfAm 131.34 Est GFR (CKD-EPI)NonAf 113.32 Random Glucose 101 Calcium 8.9 Phosphorus 4.1 Magnesium 2.4 Total Bilirubin 0.9 AST 66 H ALT 92 H Alkaline Phosphatase 82 Total Protein 8.3 H Albumin 4.6 03/13/19 23:05 RBC 4.86 MCV 98.3 H MCHC 33.9 RDW 14.6 MPV 8.4 Neutrophils % 45.2 D Lymphocytes % 45.2 H D Monocytes % 8.0 D Eosinophils % 0.5 D Basophils % 1.1 Medical Decision Making - Medical Decision Making 03/14/19 02:28 DDx. alcohol intoxication, alcohol withdrawal. drug intoxication Patient demonstrates clinical evidence for alcohol intoxication. The patient admits to intentional heavy drinking of alcohol and denies fall or injury. The patient also denies drug use. Some of the history and physical exam is limited due to the state of intoxication. All clothes were removed, all parts of the body were evaluated and there is no evidence of acute trauma. The plan is to observe patient in the ED until clinical sobriety is reached and reassess history and physical examination. CT head and C-spine negative for acute injuries, oral nasal bone fracture, no head bleed, will clinically continue to monitor for sobriety labs unremarkable. given banana bag and fluids, hydration. given librium for mild etoh w/d pt monitored closely in the ED, pt seen and reassessed periodically. remained comfortable, no acute events, VS remain stable. at time of discharge, AAO x3, NAD, patient denies any trauma, clinically improved, sober, clear and coherent in conversation, speech clear, gait stable, ambulatory. no acute neuro changes, nontremulous, normal mental status. no evidence of SI or HI or psychosis. Able to tolerate oral intake. Safe for discharge in stable condition to [facility], requesting detox/rehab. Discussed need to cut down on substance intake, given literature. offered detox and resources for ETOH abuse. prompt follow up encouraged. DC to [facility], bed can be made available at 8AM. 03/14/19 05:33 03/14/19 07:49 03/14/19 07:50 Discharge - Discharge Information Problems reviewed: Yes Clinical Impression/Diagnosis: Alcohol abuse Fall Qualifiers: Encounter type: initial encounter Qualified Code(s): W19.XXXA - Unspecified fall, initial encounter Alcohol dependence with intoxication Qualifiers: Complication of substance-induced condition: uncomplicated Qualified Code(s): F10.220 - Alcohol dependence with intoxication, uncomplicated Condition: Stable Disposition: TRANSFER ACUTE CARE/OTHER HOSP - Admission No - Follow up/Referral - Patient Discharge Instructions Patient Printed Discharge Instructions: Alcohol Use Disorder Additional Instructions: Alcohol Discharge: 1) Please do not drink alcohol or ingest any mind-altering substances and drive or make important decisions. Please cut down on your substance use/abuse. 2) You were given information about substance use/abuse. Please review this literature. 3) If you have any worsening of symptoms please return to the ED immediately. 4) Please follow-up with your primary care doctor in the next 5-7 days for evaluation of symptoms. Please stop drinking to excess. Return to ED for seizures, shaking, confusion, intractable vomiting, blood in vomit or any other concerning symptoms. Please do not drink and drive. - Post Discharge Activity
[2019-03-14] MEDS ORDERED: chlordiazePOXIDE HCL 25 MG CAPSULE PO ONE (04:26)
--- NOTE | 2019-03-14 04:33 | PDOC ---
*Physical Exam - Vital Signs Last Vital Signs Temp Pulse Resp BP Pulse Ox 97.5 F L 84 16 128/80 96 03/13/19 21:06 03/13/19 21:06 03/13/19 21:06 03/13/19 21:06 03/13/19 21:06 ED Treatment Course - LABORATORY CBC & Chemistry Diagram: 03/13/19 23:05 03/13/19 23:05 - ADDITIONAL ORDERS Additional order review: Laboratory Results 03/13/19 03/13/19 23:05 23:05 Sodium 140 Potassium 3.4 L Chloride 102 Carbon Dioxide 29 Anion Gap 9 BUN 5.4 L Creatinine 0.8 Est GFR (CKD-EPI)AfAm 131.34 Est GFR (CKD-EPI)NonAf 113.32 Random Glucose 101 Calcium 8.9 Phosphorus 4.1 Magnesium 2.4 Total Bilirubin 0.9 AST 66 H ALT 92 H Alkaline Phosphatase 82 Total Protein 8.3 H Albumin 4.6 03/13/19 23:05 RBC 4.86 MCV 98.3 H MCHC 33.9 RDW 14.6 MPV 8.4 Neutrophils % 45.2 D Lymphocytes % 45.2 H D Monocytes % 8.0 D Eosinophils % 0.5 D Basophils % 1.1 Medical Decision Making - Medical Decision Making 03/14/19 04:31 38 y/o M with hx of alcohol abuse presenting with acute alcohol intoxication and fall. No LOC, AMS, lac -will followup up labs and CTH, cspine 03/14/19 04:32 labs unremarkable administering banana bag CT head and CT c spine with no acute pathology Patient complaining of feeling nervous; BP 117/60s HR 95; will administer 50 librium awaiting [facility] transfer at 8am 03/14/19 06:50 Patient symptoms improved following librium signed out to morning team to facilitate transfer to [facility] for detox at 8am Discharge - Discharge Information Problems reviewed: Yes Clinical Impression/Diagnosis: Alcohol abuse Fall Qualifiers: Encounter type: initial encounter Qualified Code(s): W19.XXXA - Unspecified fall, initial encounter Alcohol dependence with intoxication Qualifiers: Complication of substance-induced condition: uncomplicated Qualified Code(s): F10.220 - Alcohol dependence with intoxication, uncomplicated Condition: Stable - Follow up/Referral - Patient Discharge Instructions Patient Printed Discharge Instructions: Alcohol Use Disorder Additional Instructions: Alcohol Discharge: 1) Please do not drink alcohol or ingest any mind-altering substances and drive or make important decisions. Please cut down on your substance use/abuse. 2) You were given information about substance use/abuse. Please review this literature. 3) If you have any worsening of symptoms please return to the ED immediately. 4) Please follow-up with your primary care doctor in the next 5-7 days for evaluation of symptoms. Please stop drinking to excess. Return to ED for seizures, shaking, confusion, intractable vomiting, blood in vomit or any other concerning symptoms. Please do not drink and drive. - Post Discharge Activity
[2019-03-14] MEDS ORDERED: chlordiazePOXIDE HCL 25 MG CAPSULE ONE (04:49)
[2019-03-14 05:34] VITALS: TEMP 98.2
--- NOTE | 2019-03-14 07:12 | PDOC ---
*Physical Exam - Vital Signs Last Vital Signs Temp Pulse Resp BP Pulse Ox 98.2 F 80 16 111/78 96 03/14/19 05:00 03/14/19 05:00 03/14/19 05:00 03/14/19 05:00 03/14/19 05:00 - Physical Exam General Appearance: Yes: Nourished, Appropriately Dressed. No: Apparent Distress HEENT: positive: EOMI, JONY, Normal Voice, Symmetrical, Pharynx Normal, Hearing Grossly Normal, Other (no tongue fasciculations, uvula midline). negative: Scleral Icterus (R), Scleral Icterus (L) Neck: positive: Trachea midline, Supple. negative: Tender, Lymphadenopathy (R) , Lymphadenopathy (L) Respiratory/Chest: positive: Lungs Clear, Normal Breath Sounds. negative: Chest Tender, Respiratory Distress, Accessory Muscle Use, Crackles, Rales, Rhonchi, Stridor, Wheezing Cardiovascular: positive: Regular Rhythm, Tachycardia (110) Gastrointestinal/Abdominal: positive: Normal Bowel Sounds, Flat, Soft. negative : Tender, Guarding, Rebound Musculoskeletal: positive: Normal Inspection. negative: CVA Tenderness Extremity: positive: Normal Capillary Refill, Normal Inspection, Normal Range of Motion Neurologic: positive: Fully Oriented, Alert, Normal Mood/Affect, Normal Response , Finger to Nose (normal), Other (no asterixis, no tremors, no diaphoresis). negative: Facial Droop <Herberth Antonio - Last Filed: 03/14/19 08:03> - Vital Signs Last Vital Signs Temp Pulse Resp BP Pulse Ox 98.2 F 99 H 18 140/80 100 03/14/19 05:00 03/14/19 08:58 03/14/19 08:58 03/14/19 08:58 03/14/19 08:58 <Dianne Jackson - Last Filed: 03/16/19 14:55> ED Treatment Course - LABORATORY CBC & Chemistry Diagram: 03/13/19 23:05 03/13/19 23:05 - ADDITIONAL ORDERS Additional order review: Laboratory Results 03/13/19 03/13/19 23:05 23:05 Sodium 140 Potassium 3.4 L Chloride 102 Carbon Dioxide 29 Anion Gap 9 BUN 5.4 L Creatinine 0.8 Est GFR (CKD-EPI)AfAm 131.34 Est GFR (CKD-EPI)NonAf 113.32 Random Glucose 101 Calcium 8.9 Phosphorus 4.1 Magnesium 2.4 Total Bilirubin 0.9 AST 66 H ALT 92 H Alkaline Phosphatase 82 Total Protein 8.3 H Albumin 4.6 03/13/19 23:05 RBC 4.86 MCV 98.3 H MCHC 33.9 RDW 14.6 MPV 8.4 Neutrophils % 45.2 D Lymphocytes % 45.2 H D Monocytes % 8.0 D Eosinophils % 0.5 D Basophils % 1.1 - Medications Given in the ED: ED Medications Discontinued Medications Generic Name Dose Route Start Last Admin Trade Name Freq PRN Reason Stop Dose Admin Chlordiazepoxide HCl 50 mg 03/14/19 04:26 03/14/19 04:50 Librium - PO 03/14/19 04:27 50 mg ONCE ONE Administration Folic Acid 1 mg/ Thiamine HCl 1,000 mls @ 125 mls/hr 03/13/19 21:47 03/13/19 23:52 100 mg/ Multivitamins/Minerals IVPB 03/14/19 05:46 125 mls/hr 10 ml/ Sodium Chloride ONCE ONE Administration <Herberth Antonio - Last Filed: 03/14/19 08:03> - LABORATORY CBC & Chemistry Diagram: 03/13/19 23:05 03/13/19 23:05 - ADDITIONAL ORDERS Additional order review: 03/13/19 23:05 RBC 4.86 MCV 98.3 H MCHC 33.9 RDW 14.6 MPV 8.4 Neutrophils % 45.2 D Lymphocytes % 45.2 H D Monocytes % 8.0 D Eosinophils % 0.5 D Basophils % 1.1 - Medications Given in the ED: ED Medications Discontinued Medications Generic Name Dose Route Start Last Admin Trade Name Freq PRN Reason Stop Dose Admin Chlordiazepoxide HCl 50 mg 03/14/19 04:26 03/14/19 04:50 Librium - PO 03/14/19 04:27 50 mg ONCE ONE Administration Folic Acid 1 mg/ Thiamine HCl 1,000 mls @ 125 mls/hr 03/13/19 21:47 03/13/19 23:52 100 mg/ Multivitamins/Minerals IVPB 03/14/19 05:46 125 mls/hr 10 ml/ Sodium Chloride ONCE ONE Administration Promethazine HCl 12.5 mg 03/14/19 07:25 03/14/19 07:57 Phenergan - PO 03/14/19 07:26 12.5 mg ONCE ONE Administration <JacksonRobertDiannenacho Hutton - Last Filed: 03/16/19 14:55> Medical Decision Making - Medical Decision Making 03/14/19 07:07 Signed out to me by Dr. Scott. Presented with alcohol intoxication with fall and posterior head trauma. CT head/neck negative for fracture. Began having withdrawal symptoms including tremors and tongue fasciculations. Given 50mg Librium. Would like to go to [facility] for detox, but no beds overnight. Medically cleared, pending sobriety, can be escorted to detox by security at 8AM if beds are available. 03/14/19 08:03 Patient is clinically sober, no tremors or tongue fasciculations, head non- tender, pupils ERRL and EOMI. Stable to be sent to [facility] for detox. <Herberth Antonio - Last Filed: 03/14/19 08:03> Discharge - Discharge Information Problems reviewed: Yes <Herberth Antonio - Last Filed: 03/14/19 08:03> - Admission No <JacksonDianne Hutton - Last Filed: 03/16/19 14:55> - Discharge Information Clinical Impression/Diagnosis: Alcohol abuse Fall Qualifiers: Encounter type: initial encounter Qualified Code(s): W19.XXXA - Unspecified fall, initial encounter Alcohol dependence with intoxication Qualifiers: Complication of substance-induced condition: uncomplicated Qualified Code(s): F10.220 - Alcohol dependence with intoxication, uncomplicated Condition: Stable Disposition: HOME - Follow up/Referral - Patient Discharge Instructions Patient Printed Discharge Instructions: Alcohol Use Disorder Additional Instructions: Alcohol Discharge: 1) Please do not drink alcohol or ingest any mind-altering substances and drive or make important decisions. Please cut down on your substance use/abuse. 2) You were given information about substance use/abuse. Please review this literature. 3) If you have any worsening of symptoms please return to the ED immediately. 4) Please follow-up with your primary care doctor in the next 5-7 days for evaluation of symptoms. Please stop drinking to excess. Return to ED for seizures, shaking, confusion, intractable vomiting, blood in vomit or any other concerning symptoms. Please do not drink and drive. - Post Discharge Activity
[2019-03-14] MEDS ORDERED: PROMETHAZINE HCL 25 MG TABLET PO ONE (07:25)
[2019-03-14 09:00] VITALS: BP 140/80; PULSE 99
== END 2019-03-14 09:00 | disposition home or self-care (01) ==
LOC: JER 20:50
PROC: 3E0337Z Introduction of Electrolytic and Water Balance Substance into Peripheral Vein, Percutaneous Approach (ICD-10-PCS; principal; 2019-03-13)
DX: F10.220 Alcohol dependence with intoxication, uncomplicated (principal); R42 Dizziness and giddiness
CPT/HCPCS: 36415; 70450-TC; 72125-TC; 80053; 83735; 84100; 85025; 99283-25; J7030

== ENCOUNTER 2019-03-25 09:01 | Inpatient (IN) | payer OTHER ==
[2019-03-25 09:15] VITALS: BMI 28.0
--- NOTE | 2019-03-25 09:58 | HP ---
CIWA Score Nausea/Vomitin-Mild Nausea/No Vomiting Muscle Tremors: 3 Anxiety: 3 Agitation: 1-Slight > Activity Paroxysmal Sweats: 3 Orientation: 0-Oriented Tacttile Disturbances: 0-None Auditory Disturbances: 0-None Visual Disturbances: 1-Very Mild Sensitivity Headache: 3-Moderate CIWA-Ar Total Score: 15 - Admission Criteria OASAS Guidelines: Admission for Medically Managed Detox: Requires at least one of the followin. CIWA greater than 12 2. Seizures within the past 24 hours 3. Delirium tremens within the past 24 hours 4. Hallucinations within the past 24 hours 5. Acute intervention needed for co occurring medical disorder 6. Acute intervention needed for co occurring psychiatric disorder 7. Severe withdrawal that cannot be handled at a lower level of care (continued vomiting, continued diarrhea, abnormal vital signs) requiring intravenous medication and/or fluids 8. Admitting History and Physical - Admission Chief Complaint: " I want to get into detox and I have been drinking for a few days and eating nothing else." History of Present Illness: 38 year old male with history of alcohol dependence with withdrawals. He has been drinking 2 pints of Whiskey every day. Started drinking heavily 1 month ago. He states he relapsed and the longest period of abstinence with 3 months. When he stops he gets tremors and withdrawals so he continues to drink. [facility] He denies having withdrawal seizures. He does not smoke ciggarettes. Used to use cocaine but stopped at age [age] years old. PMH: None Psurg: None Psych: None Patient denies any pending legal issues. Patient domiciled in an apartment and support from and kids. History Source: Patient Limitations to Obtaining History: No Limitations - Past Medical History Psych: Yes: Addictions - Past Surgical History Past Surgical History: Yes: None - Smoking History Smoking history: Never smoked Have you smoked in the past 12 months: No - Alcohol/Substance Use Hx Alcohol Use: Yes (DAILY) History of Substance Use: reports: None - Social History Usual Living Arrangement: Yes: With Spouse Do you think of yourself as: Straight/Heterosexual ADL: Independent History of Recent Travel: No Admission ROS S - HPI Allergies/Adverse Reactions: Allergies Allergy/AdvReac Type Severity Reaction Status Date / Time No Known Allergies Allergy Verified 03/25/19 09:10 - Ebola screening Have you traveled outside of the country in the last 21 days: No Have you had contact with anyone from an Ebola affected area: No Have you been sick,other than usual withdrawal symptoms: No Do you have a fever: No - Review of Systems Constitutional: Chills, Diaphoresis EENT: reports: No Symptoms Reported Respiratory: reports: Cough, Other (some yellowish mucous for 2 days.) Cardiac: reports: No Symptoms Reported GI: reports: Nausea, Vomiting, Abdominal cramping : reports: No Symptoms Reported Musculoskeletal: reports: Back Pain, Muscle Pain Integumentary: reports: No Symptoms Reported Neuro: reports: No Symptoms reported Endocrine: reports: No Symptoms Reported Hematology: reports: No Symptoms Reported Psychiatric: reports: Agitated, Anxious Other Systems: Reviewed and Negative Patient History - Patient Medical History Hx Anemia: No Hx Asthma: No Hx Chronic Obstructive Pulmonary Disease (COPD): No Hx Cancer: No Hx Cardiac Disorders: No Hx Congestive Heart Failure: No Hx Hypertension: No Hx Hypercholesterolemia: No Hx Pacemaker: No HX Cerebrovascular Accident: No Hx Seizures: No Hx Dementia: No Hx Diabetes: No Hx Gastrointestinal Disorders: No Hx Liver Disease: No Hx Genitourinary Disorders: No Hx Sexually Transmitted Disorders: No Hx Renal Disease (ESRD): No Hx Thyroid Disease: No Hx Human Immunodeficiency Virus (HIV): No (last 2018 negative) Hx Hepatitis C: No Hx Depression: No Hx Suicide Attempt: No Hx Bipolar Disorder: No Hx Schizophrenia: No - Patient Surgical History Past Surgical History: No Hx Neurologic Surgery: No Hx Cataract Extraction: No Hx Cardiac Surgery: No Hx Lung Surgery: No Hx Breast Surgery: No Hx Breast Biopsy: No Hx Abdominal Surgery: No Hx Appendectomy: No Hx Cholecystectomy: No Hx Genitourinary Surgery: No Hx Section: No Hx Orthopedic Surgery: No Anesthesia Reaction: No - PPD History Previous Implant?: Yes Date: 03/19/19 Results: 20mm PPD to be Administered?: No - Smoking Cessation Smoking history: Never smoked Have you smoked in the past 12 months: No Hx Chewing Tobacco Use: No Initiated information on smoking cessation: No - Substances abused Alcohol Substance route: Oral Frequency: Daily Amount used: 2-3 bottle of whiskey Age of first use: 19 Date of last use: 03/25/19 Admission Physical Exam [facility] - Vital Signs Vital Signs: Vital Signs - 24 hr 11/25/19 09:11 Temperature 97.3 F L Pulse Rate 96 H Respiratory 20 Rate Blood Pressure 144/95 - Physical General Appearance: Yes: Moderate Distress, Alcohol on Breath, Intoxicated, Tremorous, Irritable, Sweating, Anxious HEENTM: Yes: EOMI, Hearing grossly Normal, Normocephalic, Normal Voice, JONY, Pharynx Normal, Tm's normal Respiratory: Yes: Chest Non-Tender, Lungs Clear, Normal Breath Sounds, No Respiratory Distress, No Accessory Muscle Use Neck: Yes: No masses,lesions,Nodules, Supple, Trachea in good position Breast: Yes: Within Normal Limits, Axillae without masses, No Discharge, No masses Cardiology: Yes: Regular Rhythm, S1, S2, Tachycardia. No: Murmur Abdominal: Yes: Normal Bowel Sounds, Non Tender, Flat, Soft, Protuberent Genitourinary: Yes: Within Normal Limits Back: Yes: Normal Inspection Musculoskeletal: Yes: full range of Motion, Gait Steady, Pelvis Stable Extremities: Yes: Normal Capillary Refill, Normal Inspection, Normal Range of Motion, Non-Tender Neurological: Yes: vamp liner II-XII NML intact, Fully Oriented, Alert, Motor Strength 5/5, Normal Mood/Affect, Normal Response Integumentary: Yes: Normal Color, Warm Lymphatic: Yes: Within Normal Limits - Diagnostic (1) Alcohol withdrawal Current Visit: No Status: Acute (2) Dehydration Current Visit: No Status: Acute (3) Fatty liver Current Visit: No Status: Acute (4) Nausea and vomiting Current Visit: No Status: Acute Qualifiers: Vomiting type: unspecified Vomiting Intractability: unspecified Qualified Code(s): R11.2 - Nausea with vomiting, unspecified (5) Headache Current Visit: No Status: Chronic Qualifiers: Headache type: unspecified Headache chronicity pattern: episodic headache Intractability: not intractable Qualified Code(s): R51 - Headache (6) History of positive PPD Current Visit: No Status: Chronic Screened but not Admitted - Documentation of Visit Screened but not Admitted: No Breathalyzer - Breathalyzer Breathalyzer: 0.303 Urine Drug Screen - Test Device Lot number: [id number] Expiration date: 06/28/20 - Control Is test valid?: Yes - Results Drug screen NEGATIVE: No Urine drug screen results: BZO-Benzodiazepines Inpatient Rehab Admission - Rehab Decision to Admit Inpatient rehab admission?: No
[2019-03-25] MEDS ORDERED: MENTHOL/PHENOL 1 EACH UD MM PRN (10:05)
[2019-03-25] MEDS ORDERED: ACETAMINOPHEN 325 MG TABLET (FP) PO PRN ×2 (10:05)
[2019-03-25] MEDS ORDERED: MAG HYDROX/AL HYDROX/SIMETH 30 ML UNIT-DOSE CUP PO PRN (10:05)
[2019-03-25] MEDS ORDERED: MELATONIN 5 MG TABLETS PO PRN (10:05)
[2019-03-25] MEDS ORDERED: LORazepam 1 MG TABLET PO PRN (10:05)
[2019-03-25] MEDS ORDERED: BISMUTH SUBSALICYLATE 262 MG/15 ML BTL PO PRN (10:05)
[2019-03-25] MEDS ORDERED: hydrOXYzine PAMOATE 25 MG CAPSULE (FP) PO PRN (10:05)
[2019-03-25] MEDS ORDERED: MAGNESIUM CITRATE 300 ML BOTTLE PO PRN (10:05)
[2019-03-25] MEDS ORDERED: MAGNESIUM HYDROX 2400MG/30ML ORAL SUSPENSION 30 ML CUP PO PRN (10:05)
[2019-03-25] MEDS ORDERED: IBUPROFEN 400 MG TABLET (FP) PO PRN (10:05)
[2019-03-25] MEDS ORDERED: METHOCARBAMOL 500 MG TABLET PO PRN (10:05)
[2019-03-25] MEDS: LORazepam 2 MG TABLET PO SCH ×3 (11:10→22:16)
[2019-03-25 11:46] LABS: HEMATOCRIT 41.8 % (35.4-49); HEMOGLOBIN 14.5 GM/dL (11.7-16.9); MCHC 34.7 g/dl (32.0-35.9); MEAN CELL VOLUME 97.9 fl (80-96); PLATELET COUNT 76 K/MM3 (134-434); RBC 4.27 M/mm3 (4.00-5.60); RDW 14.4 % (11.9-15.9); WHITE BLOOD COUNT 3.6 K/mm3 (4.0-10.0)
[2019-03-25 12:00] LABS: ALBUMIN 4.5 g/dl (3.4-5.0); BILIRUBIN,TOTAL 1.5 mg/dL (0.2-1); CALCIUM 8.7 mg/dL (8.5-10.1); CREATININE 0.9 mg/dL (0.55-1.3); POTASSIUM 3.2 mmol/L (3.5-5.1)
[2019-03-25] MEDS: THIAMINE HCL 100 MG TABLET (FP) PO SCH (22:17)
[2019-03-26] MEDS: LORazepam 2 MG TABLET PO SCH ×4 (05:53→22:42)
--- NOTE | 2019-03-26 09:40 | PN ---
S CIWA - CIWA Score Nausea/Vomitin-Mild Nausea/No Vomiting Muscle Tremors: 1-None Visible, but Myton Anxiety: 2 Agitation: 2 Paroxysmal Sweats: No Perspiration Orientation: 0-Oriented Tacttile Disturbances: 1-Very Mild Itch/Numbness Auditory Disturbances: 0-None Visual Disturbances: 0-None Headache: 2-Mild CIWA-Ar Total Score: 9 B[facility] Progress Note (SOAP) Subjective: alert,irritable,anxious,interrupted sleep,tremor,pain in the body,poor appetite Objective: 03/26/19 09:36 Vital Signs Temperature 98.4 F 03/26/19 09:14 Pulse Rate 82 03/26/19 09:14 Respiratory Rate 18 03/26/19 09:14 Blood Pressure 142/92 03/26/19 09:14 O2 Sat by Pulse Oximetry (%) 03/26/19 09:37 Laboratory Last Values WBC 3.6 K/mm3 (4.0-10.0) L 03/25/19 10:35 RBC 4.27 M/mm3 (4.00-5.60) 03/25/19 10:35 Hgb 14.5 GM/dL (11.7-16.9) 03/25/19 10:35 Hct 41.8 % (35.4-49) 03/25/19 10:35 MCV 97.9 fl (80-96) H 03/25/19 10:35 MCH 34.0 pg (25.7-33.7) H 03/25/19 10:35 MCHC 34.7 g/dl (32.0-35.9) 03/25/19 10:35 RDW 14.4 % (11.9-15.9) 03/25/19 10:35 Plt Count 76 K/MM3 (134-434) L D 03/25/19 10:35 MPV 9.0 fl (7.5-11.1) 03/25/19 10:35 Sodium 140 mmol/L (136-145) 03/25/19 10:35 Potassium 3.2 mmol/L (3.5-5.1) L 03/25/19 10:35 Chloride 100 mmol/L (98-107) 03/25/19 10:35 Carbon Dioxide 30 mmol/L (21-32) 03/25/19 10:35 Anion Gap 10 MMOL/L (8-16) 03/25/19 10:35 BUN 11.0 mg/dL (7-18) 03/25/19 10:35 Creatinine 0.9 mg/dL (0.55-1.3) 03/25/19 10:35 Est GFR (CKD-EPI)AfAm 125.13 03/25/19 10:35 Est GFR (CKD-EPI)NonAf 107.97 03/25/19 10:35 Random Glucose 97 mg/dL (74-106) 03/25/19 10:35 Calcium 8.7 mg/dL (8.5-10.1) 03/25/19 10:35 Total Bilirubin 1.5 mg/dL (0.2-1) H 03/25/19 10:35 AST 115 U/L (15-37) H 03/25/19 10:35 ALT 91 U/L (13-61) H 03/25/19 10:35 Alkaline Phosphatase 85 U/L (45-117) 03/25/19 10:35 Total Protein 8.0 g/dl (6.4-8.2) 03/25/19 10:35 Albumin 4.5 g/dl (3.4-5.0) 03/25/19 10:35 RPR Titer Nonreactive (NONREACTIVE) 03/25/19 10:35 Assessment: 03/26/19 09:37 withdrawal symptom Plan: continue detox ativan regimen,encourage oral fluid,repeat cmp inr in am due to elevation of bilirubin,alt,ast,also d/c tylenol ensure plus for diet supplement
[2019-03-26] MEDS: PRENATAL VITAMINS W/ FOLIC ACID TABLET (FP) PO SCH (10:06)
[2019-03-26] MEDS ORDERED: ONDANSETRON *ODT* 4 MG TABLET SL PRN (10:10)
--- NOTE | 2019-03-26 10:11 | PN ---
[facility] Progress Note Note: nausea,vomiting,zofran 4 mgs sl q 6 hrs prn
[2019-03-26] MEDS ORDERED: FLU VACCINE QUAD 60 MCG/0.5 ML (MDV 19-20) IM ONE (12:00)
--- NOTE | 2019-03-26 16:00 | PN ---
S Progress Note Note: nursing staff called re: pt w/ nausea/ vomiting unable to tolerate p.o. zofran . meds changed to i.m. compazine .
[2019-03-26] MEDS ORDERED: TRIMETHOBENZAMIDE HCL 200MG/2ML INJ IM ONE (16:45)
[2019-03-26] MEDS: THIAMINE HCL 100 MG TABLET (FP) PO SCH (22:34)
[2019-03-27] MEDS: LORazepam 1 MG TABLET PO SCH ×3 (04:37→16:56)
[2019-03-27] MEDS ORDERED: TRIMETHOBENZAMIDE HCL 200MG/2ML INJ IM PRN (10:06)
[2019-03-27 10:13] LABS: ALBUMIN 4.2 g/dl (3.4-5.0); BILIRUBIN,TOTAL 1.7 mg/dL (0.2-1); BLOOD UREA NITROGEN 10.7 mg/dL (7-18); CALCIUM 9.2 mg/dL (8.5-10.1); CREATININE 0.7 mg/dL (0.55-1.3); POTASSIUM 3.1 mmol/L (3.5-5.1); TOT PROT 7.9 g/dl (6.4-8.2)
--- NOTE | 2019-03-27 10:16 | PN ---
S CIWA - CIWA Score Nausea/Vomitin Muscle Tremors: 2 Anxiety: 2 Agitation: 2 Paroxysmal Sweats: No Perspiration Orientation: 0-Oriented Tacttile Disturbances: 0-None Auditory Disturbances: 0-None Visual Disturbances: 0-None Headache: 1-Very Mild CIWA-Ar Total Score: 10 [facility] Progress Note (SOAP) Subjective: alert,irritable,anxious,interrupted sleep,pain in the body,poor oral intake Objective: 03/27/19 10:14 Vital Signs Temperature 98.9 F 03/27/19 09:30 Pulse Rate 99 H 03/27/19 09:30 Respiratory Rate 18 03/27/19 09:30 Blood Pressure 112/73 03/27/19 09:30 O2 Sat by Pulse Oximetry (%) Assessment: 03/27/19 10:15 withdrawal symptom Plan: continue detox ativan regimen,tigan 200 gs im q8hrs,dancer or choreographer consultation
[2019-03-27] MEDS: PRENATAL VITAMINS W/ FOLIC ACID TABLET (FP) PO SCH (10:35)
[2019-03-27 10:49] LABS: INR 0.96 (0.83-1.09); PROTHROMBIN TIME (PATIENT) 11.3 SEC (9.7-13.0)
[2019-03-27 17:29] VITALS: BP 118/75; PULSE 91; TEMP 97.3
[2019-03-28] MEDS ORDERED: LORazepam 0.5 MG TABLET PO PRN
[2019-03-28] MEDS ORDERED: LORazepam 0.5 MG TABLET PO SCH (05:00)
[2019-03-29] MEDS ORDERED: LORazepam 0.5 MG TABLET PO ONE (05:00)
== END 2019-03-27 19:06 | disposition left against medical advice (07) | DRG 770 ==
LOC: YASAS 09:01 → Y6N 10:33
PROVIDERS: ADMIT Allergy & Immunology; ATTEND Allergy & Immunology
PROC: HZ2ZZZZ Detoxification Services for Substance Abuse Treatment (ICD-10-PCS; principal; 2019-03-25)
DX: F10.230 Alcohol dependence with withdrawal, uncomplicated (principal); E86.0 Dehydration; K76.0 Fatty (change of) liver, not elsewhere classified; R11.2 Nausea with vomiting, unspecified; R51 Headache; R94.5 Abnormal results of liver function studies
CPT/HCPCS: 36415; 80053; 85027; 85610; 86593; G0008; Q0162; Q2036

== ENCOUNTER 2019-05-17 19:34 | Emergency (ER) | payer OTHER ==
[2019-05-17 19:51] VITALS: BP 118/79; PULSE 109; TEMP 97.9; BMI 26.6
--- NOTE | 2019-05-17 19:58 | PDOC ---
Rapid Medical Evaluation Time Seen by Provider: 05/17/19 19:47 Medical Evaluation: Allergies Allergy/AdvReac Type Severity Reaction Status Date / Time No Known Allergies Allergy Verified 05/17/19 19:51 Vital Signs Temp Pulse Resp BP Pulse Ox 97.9 F 109 H 18 118/79 98 05/17/19 19:48 05/17/19 19:48 05/17/19 19:48 05/17/19 19:48 05/17/19 19:48 05/17/19 19:57 I have performed a brief in-person evaluation of this patient. The patient presents with a chief complaint of: Abd pain. H/o ETOH abuse w/ known elevated LFTs Pertinent physical exam findings:stable I have ordered the following:labs The patient will proceed to the ED for further evaluation Discharge Disposition - Diagnosis Abdominal pain Qualifiers: Abdominal location: unspecified location Qualified Code(s): R10.9 - Unspecified abdominal pain - Discharge Dispostion Last Admission D/C Date: 03/27/19 - Referrals - Patient Instructions - Post Discharge Activity
--- NOTE | 2019-05-17 21:42 | PDOC ---
History of Present Illness - General Chief Complaint: Alcohol intoxication Stated Complaint: INTOXICATED Time Seen by Provider: 05/17/19 19:47 - History of Present Illness Initial Comments: 05/17/19 21:42 HPI: Patient denies fever, chills, night sweats, JERRY, vision change, chest pain, palpitations, SOB, cough, leg swelling, abdominal pain, nausea, vomiting, diarrhea, constipation, dysuria, hematuria, BPR, lightheadedness, weakness, sensory changes. PMHx: as noted above ROS: as noted SHx: Denies tobacco use; no alcohol use; no rec drugs Allergies: NKDA ROS: GENERAL/CONSTITUTIONAL: No fever or chills. No weakness. HEAD, EYES, EARS, NOSE AND THROAT: No change in vision. No ear pain or discharge. No sore throat. CARDIOVASCULAR: No chest pain or shortness of breath RESPIRATORY: No cough, wheezing, or hemoptysis. GASTROINTESTINAL: No nausea, vomiting, diarrhea or constipation. GENITOURINARY: No dysuria, frequency, or change in urination. MUSCULOSKELETAL: No joint or muscle swelling or pain. No neck or back pain. SKIN: No rash NEUROLOGIC: No headache, vertigo, loss of consciousness, or change in strength/ sensation. ENDOCRINE: No increased thirst. No abnormal weight change HEMATOLOGIC/LYMPHATIC: No anemia, easy bleeding, or history of blood clots. ALLERGIC/IMMUNOLOGIC: No hives or skin allergy. PE: GENERAL: Awake, alert, and fully oriented, no acute distress HEAD: No signs of trauma, normocephalic, atraumatic EYES: EOMI, sclera anicteric, conjunctiva clear ENT: Auricles normal inspection, hearing grossly normal, nares patent, oropharynx clear without exudates. Moist mucosa NECK: Normal ROM, no lymphadenopathy LUNGS: No increased work of breathing, symmetrical chest rise, clear to auscultation bilaterally, no wheezes, crackles or rhonchi HEART: Regular rate, regular rhythm, normal S1 and S2, no murmur, peripheral pulses 2+ and equal bilaterally. ABDOMEN: Soft, nondistended, nontender, normoactive bowel sounds. No guarding, no rebound. No masses. No CVAT MUSCULOSKELETAL: Normal inspection, FROM NEUROLOGICAL: Cranial nerves II through XII grossly intact. Normal speech, normal gait, no focal sensorimotor deficits SKIN: Warm, Dry, normal turgor, no rashes or lesions noted Past History - Past Medical History Allergies/Adverse Reactions: Allergies Allergy/AdvReac Type Severity Reaction Status Date / Time No Known Allergies Allergy Verified 05/17/19 19:51 Home Medications: Ambulatory Orders NK [No Known Home Medication] 03/25/19 Anemia: No Asthma: No Cancer: No Cardiac Disorders: No CVA: No COPD: No CHF: No Dementia: No Diabetes: No GI Disorders: No Disorders: No HTN: No Hypercholesterolemia: No Kidney Stones: No Liver Disease: No Seizures: No Thyroid Disease: No - Surgical History Abdominal Surgery: No Appendectomy: No Cardiac Surgery: No Cholecystectomy: No Lung Surgery: No Neurologic Surgery: No Orthopedic Surgery: No - Reproductive History Testicular Surgery: No - Immunization History Immunization Up to Date: Yes - Psycho Social/Smoking Cessation Hx Smoking History: Never smoked Have you smoked in the past 12 months: No Hx Alcohol Use: Yes Drug/Substance Use Hx: No Substance Use Type: Alcohol Hx Substance Use Treatment: Yes *Physical Exam - Vital Signs Last Vital Signs Temp Pulse Resp BP Pulse Ox 97.9 F 109 H 18 118/79 98 05/17/19 19:48 05/17/19 19:48 05/17/19 19:48 05/17/19 19:48 05/17/19 19:48 Discharge - Discharge Information Clinical Impression/Diagnosis: Abdominal pain Qualifiers: Abdominal location: unspecified location Qualified Code(s): R10.9 - Unspecified abdominal pain - Follow up/Referral - Patient Discharge Instructions - Post Discharge Activity
--- NOTE | 2019-05-18 01:13 | PDOC ---
Documentation entered by Michelle Cuba SCRIBE, acting as scribe for Shilpa Casanova MD. Shilpa Casanova MD: This documentation has been prepared by the jaibeBereket Lincy, SCRIBE, under my direction and personally reviewed by me in its entirety. I confirm that the documentation accurately reflects all work, treatment, procedures, and medical decision making performed by me. History of Present Illness - General Chief Complaint: Alcohol intoxication Stated Complaint: INTOXICATED Time Seen by Provider: 05/17/19 19:47 History Source: Patient - History of Present Illness Initial Comments: 05/17/19 22:48 The patient is a 38-year-old male with a past medical history significant for alcohol abuse who presents to the emergency department with nausea, vomiting, and abdominal pain. The patient presents with right-sided abdominal pain associated with nausea and vomiting. The patient reports hes been drinking alcohol every day and is seeking detox for alcohol abuse. Denies fever, chills, head trauma. Allergies: NKDA Past History - Past Medical History Allergies/Adverse Reactions: Allergies Allergy/AdvReac Type Severity Reaction Status Date / Time No Known Allergies Allergy Verified 05/17/19 19:51 Home Medications: Ambulatory Orders NK [No Known Home Medication] 03/25/19 Anemia: No Asthma: No Cancer: No Cardiac Disorders: No CVA: No COPD: No CHF: No Dementia: No Diabetes: No GI Disorders: No Disorders: No HTN: No Hypercholesterolemia: No Kidney Stones: No Liver Disease: No Seizures: No Thyroid Disease: No - Surgical History Abdominal Surgery: No Appendectomy: No Cardiac Surgery: No Cholecystectomy: No Lung Surgery: No Neurologic Surgery: No Orthopedic Surgery: No - Reproductive History Testicular Surgery: No - Immunization History Immunization Up to Date: Yes - Psycho Social/Smoking Cessation Hx Smoking History: Never smoked Have you smoked in the past 12 months: No Hx Alcohol Use: Yes Drug/Substance Use Hx: No Substance Use Type: Alcohol Hx Substance Use Treatment: Yes Review of Systems - Review of Systems Able to Perform ROS?: Yes Comments:: 05/17/19 22:52 GENERAL/CONSTITUTIONAL: No fever or chills. No weakness. HEAD, EYES, EARS, NOSE AND THROAT: No change in vision. No ear pain or discharge. No sore throat. CARDIOVASCULAR: No chest pain or shortness of breath. RESPIRATORY: No cough, wheezing, or hemoptysis. GASTROINTESTINAL: +nausea, vomiting and abdominal pain. Denies diarrhea or constipation. GENITOURINARY: No dysuria, frequency, or change in urination. MUSCULOSKELETAL: No joint or muscle swelling or pain. No neck or back pain. SKIN: No rash NEUROLOGIC: No headache, vertigo, loss of consciousness, or change in strength/ sensation. ENDOCRINE: No increased thirst. No abnormal weight change. HEMATOLOGIC/LYMPHATIC: No anemia, easy bleeding, or history of blood clots. ALLERGIC/IMMUNOLOGIC: No hives or skin allergy. *Physical Exam - Vital Signs Last Vital Signs Temp Pulse Resp BP Pulse Ox 97.9 F 109 H 18 118/79 98 05/17/19 19:48 05/17/19 19:48 05/17/19 19:48 05/17/19 19:48 05/17/19 19:48 - Physical Exam 05/18/19 01:11 Consult with ICU] patient is awake alert no acute distress head is atraumatic bilateral conjunctival injection moist mucous membranes lungs are clear bilaterally heart is regular without murmurs rubs or gallops abdomen soft nontender extremities are warm well perfused neurologic patient is awake alert and oriented x3 moving all 4 extremities. Medical Decision Making - Medical Decision Making 05/18/19 01:12 38-year-old male history of alcohol abuse here today complaining of alcohol intoxication nausea vomiting requesting detox. Patient denies any trauma denies any head trauma my exam answers all questions. States that he has been vomiting here in the ED he is awake alert Abdominal exam is unremarkable Plan rule out pancreatitis dehydration plan was to give IV fluids Pepcid and Zofran. However the patient eloped from the ED prior to starting an IV but after my exam Discharge - Discharge Information Problems reviewed: Yes Clinical Impression/Diagnosis: Alcohol intoxication, Vomiting Abdominal pain Qualifiers: Abdominal location: unspecified location Qualified Code(s): R10.9 - Unspecified abdominal pain Disposition: ELOPED - Follow up/Referral - Patient Discharge Instructions - Post Discharge Activity
== END 2019-05-17 22:45 | disposition left against medical advice (07) ==
LOC: JER 19:34
DX: F10.120 Alcohol abuse with intoxication, uncomplicated (principal); R10.9 Unspecified abdominal pain; R11.2 Nausea with vomiting, unspecified
CPT/HCPCS: 99282-25

== ENCOUNTER 2019-05-18 03:12 | Emergency (ER) | payer OTHER ==
--- NOTE | 2019-05-18 04:14 | PDOC ---
Attending Attestation - Resident Resident Name: Dianne Scott - ED Attending Attestation I have performed the following: I have examined & evaluated the patient, The case was reviewed & discussed with the resident, I agree w/resident's findings & plan - HPI HPI: 05/18/19 05:11 Pt comes with alcohol intox. No complaints except that he is vomiting. - Physicial Exam PE: 05/18/19 06:35 Smells of alcohol. Abd soft NT ND tachycardic. regular rhythm lungs clear bilat. abd soft NT ND +BS no extremity swelling - Medical Decision Making 05/18/19 06:39 Pt's CHEM just returned. He will get potassium orally; mag 2g IV (I understand mg level is 2.5; however that is 0.1 units higher than upper limit) pt reuires Mag to bind K+ 05/18/19 06:40 Pt remains tachycardic despite 1L NSS, and we are awaiting a banana bag 05/18/19 06:47 CXR is normal sized heart and clear lung guzman 05/18/19 07:05 Pt will be signed out to the day team. 05/18/19 07:10 PLEASE REEVAL after banana bag; K+ and mag
--- NOTE | 2019-05-18 04:29 | PDOC ---
History of Present Illness - General Chief Complaint: Alcohol intoxication Stated Complaint: INTOX, VOMITING BLOOD Time Seen by Provider: 05/18/19 04:09 - History of Present Illness Initial Comments: 05/18/19 05:07 HPI: 38 y/o M with hx of alcohol abuse presenting with abdominal pain and emesis. He was here earlier this afternoon but eloped prior to being evaluated. He reports a recent alcohol molina for the past 3 weeks where he was drinking 2 bottles of whiskey a day everyday. He reports for the past 2 days having epigastric abdominal pain and emesis. Abdominal pain is primarily epigastric but with radiation to his chest and his lower abdomen. He does not characterize the pain well. He reprots multiple episodes of emesis which has been increasing in amount of blood. He also report occasional hiccuping and dry heaving which is giving him SOB. He deneis fever, chills, syncope, dysuria, diarrhea. PMHx: as noted above ROS: as noted SHx: Denies tobacco use; significant alcohol use; no rec drugs Allergies: NKDA ROS: GENERAL/CONSTITUTIONAL: No fever or chills. No weakness. HEAD, EYES, EARS, NOSE AND THROAT: No change in vision. No ear pain or discharge. No sore throat. CARDIOVASCULAR: +chest pain and shortness of breath RESPIRATORY: No cough, wheezing, or hemoptysis. GASTROINTESTINAL: +nausea, vomiting; no diarrhea or constipation. GENITOURINARY: No dysuria, frequency, or change in urination. MUSCULOSKELETAL: No joint or muscle swelling or pain. No neck or back pain. SKIN: No rash NEUROLOGIC: No headache, vertigo, loss of consciousness, or change in strength/ sensation. ENDOCRINE: No increased thirst. No abnormal weight change HEMATOLOGIC/LYMPHATIC: No anemia, easy bleeding, or history of blood clots. ALLERGIC/IMMUNOLOGIC: No hives or skin allergy. PE: GENERAL: Awake, alert, and fully oriented, no acute distress HEAD: No signs of trauma, normocephalic, atraumatic EYES: EOMI, sclera anicteric, conjunctiva clear ENT: Auricles normal inspection, hearing grossly normal, nares patent, oropharynx clear without exudates. Moist mucosa. no tongue fasiculations NECK: Normal ROM, no lymphadenopathy LUNGS: No increased work of breathing, symmetrical chest rise, clear to auscultation bilaterally, no wheezes, crackles or rhonchi HEART: tachycardia, regular rhythm, normal S1 and S2, no murmur, peripheral pulses 2+ and equal bilaterally. ABDOMEN: Soft, nondistended, epigastric and RLQ tenderness, normoactive bowel sounds. No guarding, no rebound. No masses. No CVAT MUSCULOSKELETAL: Normal inspection, FROM NEUROLOGICAL: Cranial nerves II through XII grossly intact. Normal speech, normal gait, no focal sensorimotor deficits. no asterixis or tremulousness SKIN: Warm, Dry, normal turgor, no rashes or lesions noted Past History - Past Medical History Allergies/Adverse Reactions: Allergies Allergy/AdvReac Type Severity Reaction Status Date / Time No Known Allergies Allergy Verified 05/17/19 19:51 Home Medications: Ambulatory Orders NK [No Known Home Medication] 03/25/19 Anemia: No Asthma: No Cancer: No Cardiac Disorders: No CVA: No COPD: No CHF: No Dementia: No Diabetes: No GI Disorders: No Disorders: No HTN: No Hypercholesterolemia: No Kidney Stones: No Liver Disease: No Seizures: No Thyroid Disease: No - Surgical History Abdominal Surgery: No Appendectomy: No Cardiac Surgery: No Cholecystectomy: No Lung Surgery: No Neurologic Surgery: No Orthopedic Surgery: No - Reproductive History Testicular Surgery: No - Immunization History Immunization Up to Date: Yes - Psycho Social/Smoking Cessation Hx Smoking History: Never smoked Have you smoked in the past 12 months: No Hx Alcohol Use: Yes Drug/Substance Use Hx: No Substance Use Type: Alcohol Hx Substance Use Treatment: Yes ED Treatment Course - LABORATORY CBC & Chemistry Diagram: 05/18/19 05:20 05/18/19 05:20 Medical Decision Making - Medical Decision Making 05/18/19 05:38 38 y/o M with hx of alcohol abuse presenting with abdominal pain and emesis x2 days. HR 121, AF. PE with RLQ and epigstric ttp. DDx includes alcoholic gastritis, pud, panc, galo julian tear, appy. -cbc, cmp, lipase, trop, ekg, cxr, mg, phos, coags -ivf, pepcid, zofran 05/18/19 06:56 will administer banana bag [facility]; will DC with security for intake there 05/18/19 07:00 signed out to AM team to followup improvement in tachycardia and then DC Discharge - Discharge Information Problems reviewed: Yes Clinical Impression/Diagnosis: Intoxication, Alcohol abuse Abdominal pain Qualifiers: Abdominal location: unspecified location Qualified Code(s): R10.9 - Unspecified abdominal pain Condition: Improved Disposition: HOME - Follow up/Referral Referrals: ON STAFF,NOT [Primary Care Provider] - - Patient Discharge Instructions Patient Printed Discharge Instructions: DI for Alcohol Abuse Additional Instructions: Additional Instructions: Please return to the emergency department with any new or worsening symptoms or concerns. Please follow up with your primary care physician within 72 hours. - Post Discharge Activity
[2019-05-18] MEDS ORDERED: SODIUM CHLORIDE 1,000 ML IV STA (04:39)
[2019-05-18] MEDS ORDERED: FAMOTIDINE 20 MG/50 ML IVPB 20 MG/50 ML MG IVPB ONE ×2 (04:39→04:43)
[2019-05-18] MEDS ORDERED: ONDANSETRON 4 MG/2 ML VIAL IVPUSH ONE (04:39)
[2019-05-18] MEDS ORDERED: ONDANSETRON 4 MG/2 ML VIAL ONE (04:43)
[2019-05-18 05:18] VITALS: BMI 26.6
[2019-05-18 05:42] LABS: BASO % 0.5 % (0-2.0); HEMATOCRIT 42.2 % (35.4-49); LYMPH % 21.5 % (8-40); MCH 33.7 pg (25.7-33.7); MCHC 35.5 g/dl (32.0-35.9); MEAN CELL VOLUME 94.8 fl (80-96); MEAN PLT VOLUME 9.3 fl (7.5-11.1); MONO % 7.9 % (3.8-10.2); NEUT % 70.1 % (42.8-82.8); PLATELET COUNT 83 K/MM3 (134-434); RBC 4.45 M/mm3 (4.00-5.60); RDW 13.6 % (11.9-15.9); WHITE BLOOD COUNT 4.8 K/mm3 (4.0-10.0)
[2019-05-18 05:56] LABS: PROTHROMBIN TIME (PATIENT) 11.8 SEC (9.7-13.0)
[2019-05-18 06:28] LABS: ALBUMIN 4.5 g/dl (3.4-5.0); BILIRUBIN,TOTAL 1.3 mg/dL (0.2-1); BLOOD UREA NITROGEN 16.8 mg/dL (7-18); CALCIUM 8.7 mg/dL (8.5-10.1); MAGNESIUM 2.5 mg/dL (1.8-2.4); PHOSPHOROUS 4.4 mg/dL (2.5-4.9); POTASSIUM 3.1 mmol/L (3.5-5.1); TOT PROT 8.5 g/dl (6.4-8.2)
[2019-05-18] MEDS ORDERED: FOLIC ACID INJECTION - 1 MG, THIAMINE HCL 100 MG, MULTIVIT INJECTION ADULT 10 ML in SOD... IVPB ONE (06:33)
[2019-05-18] MEDS ORDERED: MAGNESIUM SULF 50% (8.12 MEQ/2 ML-1 GM VIAL) IVPB ONE (06:38)
[2019-05-18] MEDS ORDERED: POTASSIUM CHLORIDE TABS 20 MEQ TABLET.ER (FP) PO ONE ×2 (06:38→06:43)
[2019-05-18] MEDS ORDERED: SODIUM CHLORIDE 0.9% 500 ML INFUS.BAG IV ONE (06:41)
[2019-05-18] MEDS ORDERED: MAGNESIUM 1GM/D5W - 2 GM/200 ML IVPB IVPB ONE (06:43)
[2019-05-18 07:14] VITALS: TEMP 97.6
--- NOTE | 2019-05-18 07:17 | PDOC ---
*Physical Exam - Vital Signs Last Vital Signs Temp Pulse Resp BP Pulse Ox 97.6 F 89 18 108/64 95 05/18/19 07:13 05/18/19 07:13 05/18/19 07:13 05/18/19 07:13 05/18/19 07:13 ED Treatment Course - LABORATORY CBC & Chemistry Diagram: 05/18/19 05:20 05/18/19 05:20 - ADDITIONAL ORDERS Additional order review: Laboratory Results 05/18/19 05/18/19 05/18/19 05:20 05:20 05:20 PT with INR 11.80 INR 1.00 PTT (Actin FS) 27.0 Sodium 138 Potassium 3.1 L Chloride 94 L Carbon Dioxide 29 Anion Gap 15 BUN 16.8 Creatinine 1.0 Est GFR (CKD-EPI)AfAm 110.17 Est GFR (CKD-EPI)NonAf 95.05 Random Glucose 105 Calcium 8.7 Phosphorus 4.4 Magnesium 2.5 H Total Bilirubin 1.3 H AST 91 H ALT 77 H Alkaline Phosphatase 79 Creatine Kinase 489 H Creatine Kinase Index 0.8 CK-MB (CK-2) 4.0 H Troponin I < 0.02 Total Protein 8.5 H Albumin 4.5 Lipase 258 05/18/19 05:20 RBC 4.45 MCV 94.8 MCHC 35.5 RDW 13.6 MPV 9.3 Neutrophils % 70.1 D Lymphocytes % 21.5 D Monocytes % 7.9 Eosinophils % 0.0 D Basophils % 0.5 - Medications Given in the ED: ED Medications Discontinued Medications Generic Name Dose Route Start Last Admin Trade Name Freq PRN Reason Stop Dose Admin Famotidine/Sodium Chloride 20 mg in 50 mls @ 100 mls/hr 05/18/19 04:39 05:29 Pepcid 20 Mg Premixed Ivpb - IVPB 05/18/19 05:08 100 mls/hr ONCE ONE Administration Sodium Chloride 1,000 mls @ 1,000 mls/hr 05/18/19 04:39 05/18/19 05:29 Normal Saline - IV 05/18/19 05:38 1,000 mls/hr ASDIR STA Administration Magnesium Sulfate 2 gm 05/18/19 06:38 05/18/19 06:57 Magnesium Sulfate IVPB 05/18/19 06:39 2 gm ONCE ONE Administration Ondansetron HCl 4 mg 05/18/19 04:39 05/18/19 05:29 Zofran Injection IVPUSH 05/18/19 04:40 4 mg ONCE ONE Administration Potassium Chloride 40 meq 05/18/19 06:38 05/18/19 06:57 K-Dur - PO 05/18/19 06:39 40 meq ONCE ONE Administration Sodium Chloride 1,000 ml 05/18/19 06:41 05/18/19 06:57 Normal Saline - IV 05/18/19 06:42 1,000 ml ONCE ONE Administration Medical Decision Making - Medical Decision Making 05/18/19 07:16 Pt received on sign out from Dr. Scott. Will give IV fluids, recheck vitals, and plan to [facility]. 05/18/19 09:[address] Half way through fluids. Feels unsteady ambulating. Will reassess. 05/18/19 10:33 Pt reassessed. Able to ambulate. Finished fluids. D/c to [facility]. Discharge - Discharge Information Problems reviewed: Yes Clinical Impression/Diagnosis: Intoxication, Alcohol abuse Abdominal pain Qualifiers: Abdominal location: unspecified location Qualified Code(s): R10.9 - Unspecified abdominal pain Condition: Improved Disposition: HOME - Follow up/Referral Referrals: Jose Pope MD [Staff Physician] - ON STAFF,NOT [Primary Care Provider] - - Patient Discharge Instructions Patient Printed Discharge Instructions: DI for Alcohol Abuse Additional Instructions: Additional Instructions: Please return to the emergency department with any new or worsening symptoms or concerns. Please follow up with your primary care physician within 72 hours. - Post Discharge Activity
[2019-05-18 11:08] VITALS: BP 138/79; PULSE 99
--- NOTE | 2019-05-18 13:14 | EKG ---
Test Reason : Blood Pressure : / mmHG Vent. Rate : 086 BPM Atrial Rate : 086 BPM P-R Int : 198 ms QRS Dur : 088 ms QT Int : 382 ms P-R-T Axes : 052 065 055 degrees QTc Int : 457 ms NORMAL SINUS RHYTHM NORMAL ECG WHEN COMPARED WITH ECG OF 31-OCT-2018 08:56, NO SIGNIFICANT CHANGE WAS FOUND Confirmed by FRANKO PORTILLO MD ([id number]) on 05/18/2019 1:13:54 PM Referred By: Confirmed By:FRANKO PORTILLO MD
== END 2019-05-18 11:00 | disposition home or self-care (01) ==
LOC: JER 03:12
PROC: 3E033GC Introduction of Other Therapeutic Substance into Peripheral Vein, Percutaneous Approach (ICD-10-PCS; principal; 2019-05-18)
PROC: 3E033GC Introduction of Other Therapeutic Substance into Peripheral Vein, Percutaneous Approach (ICD-10-PCS; 2019-05-18)
PROC: 3E033GC Introduction of Other Therapeutic Substance into Peripheral Vein, Percutaneous Approach (ICD-10-PCS; 2019-05-18)
PROC: 3E033GC Introduction of Other Therapeutic Substance into Peripheral Vein, Percutaneous Approach (ICD-10-PCS; 2019-05-18)
DX: F10.120 Alcohol abuse with intoxication, uncomplicated (principal); R10.9 Unspecified abdominal pain; R11.2 Nausea with vomiting, unspecified
CPT/HCPCS: 36415; 71045-TC-FY; 80053; 82550; 82553; 83690; 83735; 84100; 84484; 85025; 85610; 85730; 93005; 93010; 96365; 96366; 96367; 96375; 99285-25; J7030

== ENCOUNTER 2019-10-29 17:18 | Inpatient (IN) | payer OTHER ==
[2019-10-29 17:26] VITALS: BMI 28.2
[2019-10-29] MEDS ORDERED: FOLIC ACID INJECTION - 1 MG, THIAMINE HCL 100 MG, MULTIVIT INJECTION ADULT 10 ML in SOD... IVPB ONE (17:27)
--- NOTE | 2019-10-29 17:27 | PDOC ---
Rapid Medical Evaluation Time Seen by Provider: 10/29/19 17:25 Medical Evaluation: Allergies Allergy/AdvReac Type Severity Reaction Status Date / Time No Known Allergies Allergy Verified 10/29/19 17:20 10/29/19 17:25 CC: etoh abuse, now shaking with abd pain and vomiting, drank baccardi [employer], requesting detox Exam : tachy , intoxicated, no abd tenderness Plan: labs, urine, ivf, iv Discharge Disposition - Diagnosis Alcohol dependence with intoxication - Referrals - Patient Instructions - Post Discharge Activity
[2019-10-29 18:13] LABS: BASO % 0.4 % (0-2.0); EOS % 0.3 % (0-4.5); HEMATOCRIT 44.2 % (35.4-49); LYMPH % 34.6 % (8-40); MCHC 33.9 g/dl (32.0-35.9); MEAN CELL VOLUME 97.4 fl (80-96); MEAN PLT VOLUME 9.4 fl (7.5-11.1); MONO % 6.5 % (3.8-10.2); NEUT % 58.2 % (42.8-82.8); PLATELET COUNT 98 K/MM3 (134-434); RBC 4.54 M/mm3 (4.00-5.60); RDW 13.4 % (11.9-15.9); WHITE BLOOD COUNT 4.7 K/mm3 (4.0-10.0)
[2019-10-29 18:39] LABS: LIPASE 312 U/L (73-393); MAGNESIUM 2.4 mg/dL (1.8-2.4)
[2019-10-29] MEDS ORDERED: ONDANSETRON 4 MG/2 ML VIAL IVPUSH ONE (18:41)
[2019-10-29] MEDS ORDERED: LORazepam 2 MG/ML SDV VIAL ONE (18:41)
[2019-10-29 18:51] LABS: EPI CELLS 20 /uL (0-25.1); HYALINE CASTS 2 /uL (0-3.1); URINE APPEARANCE CLEAR; URINE BACTERIA 39 /uL (0-1359); URINE BILIRUBIN NEGATIVE (NEGATIVE); URINE COLOR YELLOW; URINE GLUCOSE (UA) NEGATIVE (NEGATIVE); URINE KETONE 1+ (NEGATIVE); URINE LEUK ESTERASE NEGATIVE (NEGATIVE); URINE NITRITE NEGATIVE (NEGATIVE); URINE PROTEIN 3+ (NEGATIVE); URINE WBC 10 /uL (0-25.8)
[2019-10-29 18:55] LABS: ALBUMIN 4.7 g/dl (3.4-5.0); BLOOD UREA NITROGEN 9.4 mg/dL (7-18); CALCIUM 8.9 mg/dL (8.5-10.1); CREATININE 0.9 mg/dL (0.55-1.3); TOT PROT 8.6 g/dl (6.4-8.2)
[2019-10-29 18:59] LABS: COCAINE, UR NEGATIVE ng/ml (CUTOFF=300); METHADONE, UR NEGATIVE ng/ml (CUTOFF=300); OPIATES, URI NEGATIVE ng/ml (CUTOFF=300); PHENCYCLIDINE,URINE NEGATIVE ng/ml (CUTOFF=25); URINE AMPHETAMINES NEGATIVE ng/ml (CUTOFF=500); URINE BARBITURATES NEGATIVE ng/ml (CUTOFF=200)
[2019-10-29 19:14] LABS: URINE BENZODIAZEPINES NEGATIVE ng/ml (CUTOFF=200)
--- NOTE | 2019-10-29 19:31 | PDOC ---
History of Present Illness - General Chief Complaint: Alcohol intoxication Stated Complaint: INTOXICATE Time Seen by Provider: 10/29/19 17:25 - History of Present Illness Initial Comments: 10/29/19 19:29 39-year-old male denies comorbidities presents for evaluation of malaise vomiting headache after alcohol consumption. Past History - Medical History Allergies/Adverse Reactions: Allergies Allergy/AdvReac Type Severity Reaction Status Date / Time No Known Allergies Allergy Verified 10/29/19 17:20 Home Medications: Ambulatory Orders NK [No Known Home Medication] 03/25/19 Anemia: No Asthma: No Cancer: No Cardiac Disorders: No CVA: No COPD: No CHF: No Dementia: No Diabetes: No GI Disorders: No Disorders: No HTN: No Hypercholesterolemia: No Kidney Stones: No Liver Disease: No Seizures: No Thyroid Disease: No - Surgical History Abdominal Surgery: No Appendectomy: No Cardiac Surgery: No Cholecystectomy: No Lung Surgery: No Neurologic Surgery: No Orthopedic Surgery: No - Reproductive History Testicular Surgery: No - Immunization History Immunization Up to Date: Yes - Psycho-Social/Smoking History Smoking History: Never smoked Have you smoked in the past 12 months: No - Substance Abuse Hx (Audit-C & DAST Scrn) How often the patient has a drink containing alcohol: 4 0r more times/wk Number of drinks the patient has on a typical day: 3 or 4 How often the patient has six or more drinks on one occasion: Daily or almost daily Score: In Men: 4 or > Positive; In Women: 3 or > Positive: 9 Screen Result (Pos requires Nsg. Audit-10AR): Positive In the last yr the pt used illegal drug/Rx for NonMed reason: No Score: Yes response is considered Positive: 0 Screen Result (Positive result requires Nsg. DAST-10): Negative Review of Systems - Review of Systems Able to Perform ROS?: No Constitutional: No: Fever ABD/GI: Yes: Nausea, Vomiting *Physical Exam - Vital Signs Last Vital Signs Temp Pulse Resp BP Pulse Ox 98.6 F 111 H 18 129/87 100 10/29/19 17:20 10/29/19 17:20 10/29/19 17:20 10/29/19 17:20 10/29/19 17:20 - Physical Exam 10/29/19 19:30 GENERAL: The patient is awake, alert, and fully oriented, in no acute distress. HEAD: Normal with no signs of trauma. EYES: Sclerae slightly icteric and injected, conjunctiva Injected ENT: Ears normal tympanic membranes normal oropharynx clear uvula midline NECK: Normal range of motion LUNGS: Breath sounds equal, clear to auscultation bilaterally. No wheezes, and no crackles. HEART: S1 and S2 without murmur, rub or gallop. ABDOMEN: Soft, nontender, normoactive bowel sounds. No guarding, no rebound. No masses. EXTREMITIES: Normal range of motion, no edema. No clubbing or cyanosis. No cords, erythema, or tenderness. NEUROLOGICAL: Patient is tremorous PSYCH: Patient is anxious visibly SKIN: Clammy and sweating normal turgor, no rashes or lesions noted. ED Treatment Course - LABORATORY CBC & Chemistry Diagram: 10/29/19 17:50 10/29/19 17:50 - ADDITIONAL ORDERS Additional order review: Laboratory Results 10/29/19 10/29/19 10/29/19 18:06 17:56 17:50 Sodium Potassium Chloride Carbon Dioxide Anion Gap BUN Creatinine Est GFR (CKD-EPI)AfAm Est GFR (CKD-EPI)NonAf Random Glucose Calcium Magnesium 2.4 Total Bilirubin AST ALT Alkaline Phosphatase Troponin I < 0.02 Total Protein Albumin Lipase 312 Urine Color Yellow Urine Appearance Clear Urine pH 6.0 Ur Specific [place] 1.024 Urine Protein 3+ H Urine Glucose (UA) Negative Urine Ketones 1+ H Urine Blood 1+ H Urine Nitrite Negative Urine Bilirubin Negative Urine Urobilinogen 1.0 Ur Leukocyte Esterase Negative Urine WBC (Auto) 10 Urine RBC (Auto) 36.0 Urine Casts (Auto) 2 U Epithel Cells (Auto) 20 Urine Bacteria (Auto) 39 Opiates Screen Negative Methadone Screen Negative Barbiturate Screen Negative Phencyclidine Screen Negative Ur Amphetamines Screen Negative MDMA (Ecstasy) Screen Negative Benzodiazepines Screen Negative Cocaine Screen Negative U Marijuana (THC) Screen Negative Alcohol, Quantitative 10/29/19 17:50 Sodium 139 Potassium 3.0 L Chloride 96 L Carbon Dioxide 29 Anion Gap 14 BUN 9.4 Creatinine 0.9 Est GFR (CKD-EPI)AfAm 124.26 Est GFR (CKD-EPI)NonAf 107.21 Random Glucose 117 H Calcium 8.9 Magnesium Total Bilirubin 1.0 AST 99 H ALT 70 H Alkaline Phosphatase 84 Troponin I Total Protein 8.6 H Albumin 4.7 Lipase Urine Color Urine Appearance Urine pH Ur Specific [place] Urine Protein Urine Glucose (UA) Urine Ketones Urine Blood Urine Nitrite Urine Bilirubin Urine Urobilinogen Ur Leukocyte Esterase Urine WBC (Auto) Urine RBC (Auto) Urine Casts (Auto) U Epithel Cells (Auto) Urine Bacteria (Auto) Opiates Screen Methadone Screen Barbiturate Screen Phencyclidine Screen Ur Amphetamines Screen MDMA (Ecstasy) Screen Benzodiazepines Screen Cocaine Screen U Marijuana (THC) Screen Alcohol, Quantitative 464.3 H 10/29/19 17:50 RBC 4.54 MCV 97.4 H MCHC 33.9 RDW 13.4 MPV 9.4 Neutrophils % 58.2 Lymphocytes % 34.6 D Monocytes % 6.5 Eosinophils % 0.3 D Basophils % 0.4 - Medications Given in the ED: ED Medications Discontinued Medications Generic Name Dose Route Start Last Admin Trade Name Freq PRN Reason Stop Dose Admin Lorazepam 2 mg 10/29/19 18:36 10/29/19 18:55 Ativan Injection - IVPUSH 10/29/19 18:37 2 mg ONCE ONE Administration Ondansetron HCl 4 mg 10/29/19 18:41 10/29/19 18:50 Zofran Injection IVPUSH 10/29/19 18:42 4 mg ONCE ONE Administration Medical Decision Making - Medical Decision Making 10/29/19 19:31 Will admit for alcohol withdrawal 10/29/19 19:31 Hospitalist phoned for admission Discharge - Discharge Information Problems reviewed: Yes Clinical Impression/Diagnosis: Alcohol dependence with intoxication, Alcohol withdrawal - Admission Yes - Follow up/Referral - Patient Discharge Instructions - Post Discharge Activity
[2019-10-29] MEDS ORDERED: POTASSIUM CHLORIDE ORAL LIQUID 20 MEQ/15 ML PO ONE (20:09)
[2019-10-29] MEDS ORDERED: POTASSIUM CHLORIDE ORAL LIQUID 20 MEQ/15 ML ONE (20:22)
--- NOTE | 2019-10-29 21:44 | PN ---
Teaching Attending Note Name of Resident: Dax Reynolds ATTENDING PHYSICIAN STATEMENT I saw and evaluated the patient. I reviewed the resident's note and discussed the case with the resident. I agree with the resident's findings and plan as documented. SUBJECTIVE: 39-y/o M with no PMHx p/w malaise vomiting headache after alcohol consumption a/w nausea and vomiting. OBJECTIVE: VS: Afeb tachycardic to 111 BP 129/87 100% on RA GENERAL: Awake, alert, and fully oriented, in no acute distress. HEAD: NC/AT EYES: sclera anicteric, conjunctiva clear. EARS, NOSE, THROAT: Ears normal, nares patent, oropharynx clear without exudates. Moist mucous membranes. NECK: Normal range of motion, supple without lymphadenopathy, JVD, or masses. LUNGS: Breath sounds equal, clear to auscultation bilaterally. No wheezes, and no crackles. No accessory muscle use. HEART: tachycardia, normal rhythm, normal S1 and S2 without murmur, rub or gallop. ABDOMEN: Soft, mild TTP of lower abd, not distended, no guarding, no rebound. MUSCULOSKELETAL: Normal range of motion at all joints. No bony deformities or tenderness. No CVA tenderness. UPPER EXTREMITIES: 2+ pulses, warm, well-perfused. No cyanosis. No clubbing. No peripheral edema. LOWER EXTREMITIES: 2+ pulses, warm, well-perfused. No calf tenderness. No peripheral edema. NEUROLOGICAL: Normal speech. CIWA 14: moist forehead, mild fingertip tremors, no tongue fasisculations ASSESSMENT AND PLAN: 39-y/o M with no PMHx p/w malaise vomiting headache after alcohol consumption. VS: Afeb tachycardic to 111 BP 129/87 100% on RA Labs: No leukocytosis H/H Macrocytosis nl H/H Platelet 98 HypoK to 3.0 BUN/Creat 9.4/0.9 AST: ALT 99: 70 ALP 84 U/A 3+Protein 1+ketone 1+blood 36 RBC on micro EtOH 463 EKG: Sinus tach @ ~100 bpm Alcohol withdrawl Alcoholic Liver Disease Alcoholic Gastritis Thrombocytopenia in setting of EtOH abuse and possible liver disease CIWA monitoring serially currently 12 Ativan protocol initiate U/S liver Monitor LFT Repeat U/A Monitor Electrolytes, K, Mg, PO4 and replete Continue Zofran 4 mg q 4 PRN N/V Protonix 40 mg IVP q daily Thiamine Folate MVM Supportive care: DVT px: Lovenox Px dose Diet NPO for now advance as tolerated GI Px: Start Protonix 40 mg IV
[2019-10-29] MEDS ORDERED: LORazepam 1 MG TABLET PO PRN (21:51)
--- NOTE | 2019-10-29 21:52 | HP ---
CHIEF COMPLAINT: tremors PCP: HISTORY OF PRESENT ILLNESS: 39M w/ pmh of chronic EtOH usage presents to [facility] for complaint of tremors, nausea vomiting. Has been drinking 1 bottle wine daily for the past two weeks. Last drink was ~8am, prior to admission. He drank ~3-4 fingers of whiskey. This morning he had several episodes of nonbloody vomitting, mostly consisting of the water he drank. He has had a poor appetite and lower abd pain, and hasn't eaten in a few days. He saw roaches crawling on his [place] his morning, is bothered by strong light, thought he heard singing in his ears, feels itchy in his arms, has a mild JERRY, feels anxious. He had one seizure 10ys prior, after drinking. Denies history of tremors. Chart review shows several [facility] visits in 2019 for EtOH detox and an ED visit in May 2019 for intoxication. Pt works as a solutions executive cloud sales and lives with his GF. When asked, he isn't sure why drinks regularly. ER course was notable for: (1) HR 111 (2) EKG sinus tachy (3) K 3.0 (4) AST/ALT 99/70 (5) EtOH 463 (6) UA: protein 3+, ketone 1+, blood 1+, nitrite neg, LE neg, bact neg (7) CIWA 13 (8) zofran, ativan, Folic acid Recent Travel: denies PAST MEDICAL HISTORY: chronic EtOH PAST SURGICAL HISTORY: denies Social History: Smoking: denies Alcohol: 1 bottle wine daily Drugs: distant cocaine(teenager) Allergies No Known Allergies Allergy (Verified 10/29/19 17:20) HOME MEDICATIONS: Home Medications Medication Instructions Recorded NK [No Known Home Medication] 03/25/19 REVIEW OF SYSTEMS CONSTITUTIONAL: Absent: fever, chills, diaphoresis, generalized weakness, malaise, loss of appetite, weight change HEENT: Absent: rhinorrhea, nasal congestion, throat pain, throat swelling, difficulty swallowing, mouth swelling, ear pain, eye pain, visual changes CARDIOVASCULAR: Absent: chest pain, syncope, palpitations, irregular heart rate, lightheadedness, peripheral edema RESPIRATORY: nausea, vomiting Absent: cough, shortness of breath, dyspnea with exertion, orthopnea, wheezing, stridor, hemoptysis GASTROINTESTINAL: lower abd pain Absent: abdominal pain, abdominal distension, , diarrhea, constipation, melena, hematochezia GENITOURINARY: Absent: dysuria, frequency, urgency, hesitancy, hematuria, flank pain, genital pain MUSCULOSKELETAL: Absent: myalgia, arthralgia, joint swelling, back pain, neck pain SKIN: Absent: rash, itching, pallor HEMATOLOGIC/IMMUNOLOGIC: Absent: easy bleeding, easy bruising, lymphadenopathy, frequent infections ENDOCRINE: Absent: unexplained weight gain, unexplained weight loss, heat intolerance, cold intolerance NEUROLOGIC: Absent: headache, focal weakness or paresthesias, dizziness, unsteady gait, seizure, mental status changes, bladder or bowel incontinence PSYCHIATRIC: Absent: anxiety, depression, suicidal or homicidal ideation, hallucinations. PHYSICAL EXAMINATION Vital Signs - 24 hr 10/29/19 17:20 Temperature 98.6 F Pulse Rate 111 H Respiratory 18 Rate Blood Pressure 129/87 O2 Sat by Pulse 100 Oximetry (%) GENERAL: Awake, alert, and fully oriented, in no acute distress. Mildly somonolent HEAD: NC/AT EYES: sclera anicteric, conjunctiva clear. EARS, NOSE, THROAT: Ears normal, nares patent, oropharynx clear without exudates. Moist mucous membranes. NECK: Normal range of motion, supple without lymphadenopathy, JVD, or masses. LUNGS: Breath sounds equal, clear to auscultation bilaterally. No wheezes, and no crackles. No accessory muscle use. HEART: tachycardia, normal rhythm, normal S1 and S2 without murmur, rub or gallop. ABDOMEN: Soft, mild TTP of lower abd, not distended, no guarding, no rebound. MUSCULOSKELETAL: Normal range of motion at all joints. No bony deformities or tenderness. No CVA tenderness. UPPER EXTREMITIES: 2+ pulses, warm, well-perfused. No cyanosis. No clubbing. No peripheral edema. LOWER EXTREMITIES: 2+ pulses, warm, well-perfused. No calf tenderness. No peripheral edema. NEUROLOGICAL: Normal speech. CIWA 14: moist forehead, mild fingertip tremors, no tongue fasisculations Laboratory Results - last 24 hr 10/29/19 10/29/19 10/29/19 17:50 17:50 17:50 WBC 4.7 RBC 4.54 Hgb 15.0 Hct 44.2 MCV 97.4 H MCH 33.0 MCHC 33.9 RDW 13.4 Plt Count 98 L MPV 9.4 Absolute Neuts (auto) 2.8 Neutrophils % 58.2 Lymphocytes % 34.6 D Monocytes % 6.5 Eosinophils % 0.3 D Basophils % 0.4 Nucleated RBC % 0 Sodium 139 Potassium 3.0 L Chloride 96 L Carbon Dioxide 29 Anion Gap 14 BUN 9.4 Creatinine 0.9 Est GFR (CKD-EPI)AfAm 124.26 Est GFR (CKD-EPI)NonAf 107.21 Random Glucose 117 H Calcium 8.9 Magnesium Total Bilirubin 1.0 AST 99 H ALT 70 H Alkaline Phosphatase 84 Troponin I Total Protein 8.6 H Albumin 4.7 Lipase Urine Color Urine Appearance Urine pH Ur Specific [place] Urine Protein Urine Glucose (UA) Urine Ketones Urine Blood Urine Nitrite Urine Bilirubin Urine Urobilinogen Ur Leukocyte Esterase Urine WBC (Auto) Urine RBC (Auto) Urine Casts (Auto) U Epithel Cells (Auto) Urine Bacteria (Auto) Opiates Screen Negative Methadone Screen Negative Barbiturate Screen Negative Phencyclidine Screen Negative Ur Amphetamines Screen Negative MDMA (Ecstasy) Screen Negative Benzodiazepines Screen Negative Cocaine Screen Negative U Marijuana (THC) Screen Negative Alcohol, Quantitative 464.3 H 10/29/19 10/29/19 17:56 18:06 WBC RBC Hgb Hct MCV MCH MCHC RDW Plt Count MPV Absolute Neuts (auto) Neutrophils % Lymphocytes % Monocytes % Eosinophils % Basophils % Nucleated RBC % Sodium Potassium Chloride Carbon Dioxide Anion Gap BUN Creatinine Est GFR (CKD-EPI)AfAm Est GFR (CKD-EPI)NonAf Random Glucose Calcium Magnesium 2.4 Total Bilirubin AST ALT Alkaline Phosphatase Troponin I < 0.02 Total Protein Albumin Lipase 312 Urine Color Yellow Urine Appearance Clear Urine pH 6.0 Ur Specific [place] 1.024 Urine Protein 3+ H Urine Glucose (UA) Negative Urine Ketones 1+ H Urine Blood 1+ H Urine Nitrite Negative Urine Bilirubin Negative Urine Urobilinogen 1.0 Ur Leukocyte Esterase Negative Urine WBC (Auto) 10 Urine RBC (Auto) 36.0 Urine Casts (Auto) 2 U Epithel Cells (Auto) 20 Urine Bacteria (Auto) 39 Opiates Screen Methadone Screen Barbiturate Screen Phencyclidine Screen Ur Amphetamines Screen MDMA (Ecstasy) Screen Benzodiazepines Screen Cocaine Screen U Marijuana (THC) Screen Alcohol, Quantitative ASSESSMENT/PLAN: 39M w/ pmh of chronic EtOH usage presents to [facility] for complaint of tremors, nausea vomiting. Has been drinking 1 bottle wine daily for the past two weeks. Last drink was ~8am, prior to admission. He drank ~3-4 fingers of whiskey. This morning he had several episodes of nonbloody vomitting, mostly consisting of the water he drank. He has had a poor appetite and lower abd pain, and hasn't eaten in a few days. Admitted for EtOH withdrawal and possible EtOH-induced gastritis. #EtOH withdrawal --last drink was ~8am at day of admission > CIWA 14 > Serum EtOH 463 - Ativan protocol - thiamine, folate - mIVF - seizure precautions #nausea and vomitting --likely 2/2 EtOH-induced gastritis - pantoprazole 40mg - zofran PRN - CLD then ADAT #transaminitis --possibly 2/2 fatty liver(borderline hepatomegaly noted in October 2018) > AST/ALT 99/70 > US RUQ --pending - trend labs #proteinuria --possibly 2/2 EtOH usage vs postural > UA: protein 3+, ketone 1+, blood 1+, nitrite neg, LE neg, bact neg - rpt UA FEN - NS @100 - CLD in AM, then ADAT Family Medical History Family History: Unremarkable Visit type - Emergency Visit Emergency Visit: Yes Care time: The patient presented to the Emergency Department on the above date and was hospitalized for further evaluation of their emergent condition. - New Patient This patient is new to me today: Yes Date on this admission: 10/29/19 - Critical Care Critical Care patient: No ATTENDING PHYSICIAN STATEMENT I saw and evaluated the patient. I reviewed the resident's note and discussed the case with the resident. I agree with the resident's findings and plan as documented. SUBJECTIVE: OBJECTIVE: ASSESSMENT AND PLAN:
[2019-10-29] MEDS ORDERED: SODIUM CHLORIDE 1,000 ML IV SCH (22:00)
[2019-10-29] MEDS ORDERED: ONDANSETRON 4 MG/2 ML VIAL IVPUSH PRN (23:42)
[2019-10-30] MEDS: LORazepam 2 MG TABLET PO SCH ×3 (01:53→10:41)
[2019-10-30] MEDS ORDERED: LORazepam 2 MG/ML SDV VIAL ONE ×2 (02:17→06:25)
[2019-10-30 05:40] LABS: HEMATOCRIT 37.1 % (35.4-49); HEMOGLOBIN 12.7 GM/dL (11.7-16.9); MCH 33.3 pg (25.7-33.7); MCHC 34.3 g/dl (32.0-35.9); MEAN CELL VOLUME 96.9 fl (80-96); MEAN PLT VOLUME 9.3 fl (7.5-11.1); PLATELET COUNT 65 K/MM3 (134-434); RBC 3.83 M/mm3 (4.00-5.60); RDW 13.7 % (11.9-15.9); WHITE BLOOD COUNT 4.7 K/mm3 (4.0-10.0)
[2019-10-30 06:26] LABS: ALBUMIN 3.8 g/dl (3.4-5.0); CALCIUM 7.9 mg/dL (8.5-10.1); MAGNESIUM 2.1 mg/dL (1.8-2.4); PHOSPHOROUS 3.3 mg/dL (2.5-4.9); POTASSIUM 3.3 mmol/L (3.5-5.1); TOT PROT 6.9 g/dl (6.4-8.2)
[2019-10-30 06:27] LABS: CREATININE 0.8 mg/dL (0.55-1.3)
[2019-10-30 08:42] VITALS: TEMP 98.3
[2019-10-30] MEDS ORDERED: POTASSIUM CHLORIDE TABS 20 MEQ TABLET.ER (FP) PO ONE ×2 (09:23→10:01)
[2019-10-30] MEDS ORDERED: FOLIC ACID 1 MG TABLET (FP) PO SCH (10:00)
[2019-10-30] MEDS ORDERED: ENOXAPARIN NA (PORCINE) 40 MG/0.4 ML DISP.SYRIN SQ SCH (10:00)
[2019-10-30] MEDS ORDERED: PANTOPRAZOLE SODIUM 40 MG VIAL IVPUSH SCH (10:00)
[2019-10-30] MEDS ORDERED: THIAMINE HCL 100 MG TABLET (FP) PO SCH (10:00)
[2019-10-30] MEDS ORDERED: PANTOPRAZOLE 40 MG TABLET PO SCH (10:00)
[2019-10-30] MEDS ORDERED: FOLIC ACID 1 MG TABLET (FP) ONE (10:01)
[2019-10-30] MEDS ORDERED: THIAMINE HCL 100 MG TABLET (FP) ONE (10:01)
[2019-10-30] MEDS ORDERED: PANTOPRAZOLE 40 MG TABLET ONE (10:01)
[2019-10-30 10:30] VITALS: PULSE 100
--- NOTE | 2019-10-30 10:37 | EKG ---
Test Reason : Blood Pressure : / mmHG Vent. Rate : 101 BPM Atrial Rate : 101 BPM P-R Int : 170 ms QRS Dur : 098 ms QT Int : 344 ms P-R-T Axes : 023 042 036 degrees QTc Int : 446 ms SINUS TACHYCARDIA OTHERWISE NORMAL ECG Confirmed by Riley Hernández MD ([id number]) on 10/30/2019 10:36:38 AM Referred By: Confirmed By:Riley Hernández MD
[2019-10-30 11:58] LABS: EPI CELLS 4 /uL (0-25.1); HYALINE CASTS 1 /uL (0-3.1); URINE APPEARANCE CLEAR; URINE BACTERIA 6 /uL (0-1359); URINE BILIRUBIN NEGATIVE (NEGATIVE); URINE COLOR DK YELLOW; URINE GLUCOSE (UA) NEGATIVE (NEGATIVE); URINE KETONE 2+ (NEGATIVE); URINE LEUK ESTERASE NEGATIVE (NEGATIVE); URINE NITRITE NEGATIVE (NEGATIVE); URINE PROTEIN 1+ (NEGATIVE); URINE RBC 53 /uL (0-23.9); URINE WBC 2 /uL (0-25.8)
--- NOTE | 2019-10-30 13:10 | DS ---
Physical Exam: SUBJECTIVE: Patient seen and examined Patient was stable and withdrawal symptoms controlled. Ready for transfer for rehab at [facility]. OBJECTIVE: Vital Signs Period Temp Pulse Resp BP Sys/Mcgovern Pulse Ox Last 24 Hr 98.3 F-98.6 F 92-111 16-19 107-129/70-87 98-100 PHYSICAL EXAM GENERAL: The patient is awake, alert, and fully oriented, in no acute distress. HEAD: Normal with no signs of trauma. EYES: PERRL, extraocular movements intact, sclera anicteric, conjunctiva clear. ENT: Ears normal, nares patent, oropharynx clear without exudates, moist mucous membranes. NECK: Trachea midline, full range of motion, supple. LUNGS: Breath sounds equal, clear to auscultation bilaterally, no wheezes, no crackles, no accessory muscle use. HEART: Regular rate and rhythm, S1, S2 without murmur, rub or gallop. ABDOMEN: Soft, nontender, nondistended, normoactive bowel sounds, no guarding, no rebound, no hepatosplenomegaly, no masses. EXTREMITIES: 2+ pulses, warm, well-perfused, no edema. NEUROLOGICAL: Cranial nerves II through XII grossly intact. Normal speech, gait not observed. PSYCH: Normal mood, normal affect. SKIN: Warm, dry, normal turgor, no rashes or lesions noted. LABS Laboratory Results - last 24 hr 10/29/19 10/29/19 10/29/19 17:50 17:50 17:50 WBC 4.7 RBC 4.54 Hgb 15.0 Hct 44.2 MCV 97.4 H MCH 33.0 MCHC 33.9 RDW 13.4 Plt Count 98 L MPV 9.4 Absolute Neuts (auto) 2.8 Neutrophils % 58.2 Lymphocytes % 34.6 D Monocytes % 6.5 Eosinophils % 0.3 D Basophils % 0.4 Nucleated RBC % 0 Sodium 139 Potassium 3.0 L Chloride 96 L Carbon Dioxide 29 Anion Gap 14 BUN 9.4 Creatinine 0.9 Est GFR (CKD-EPI)AfAm 124.26 Est GFR (CKD-EPI)NonAf 107.21 Random Glucose 117 H Calcium 8.9 Phosphorus Magnesium Total Bilirubin 1.0 AST 99 H ALT 70 H Alkaline Phosphatase 84 Troponin I Total Protein 8.6 H Albumin 4.7 Lipase Urine Color Urine Appearance Urine pH Ur Specific [place] Urine Protein Urine Glucose (UA) Urine Ketones Urine Blood Urine Nitrite Urine Bilirubin Urine Urobilinogen Ur Leukocyte Esterase Urine WBC (Auto) Urine RBC (Auto) Urine Casts (Auto) U Epithel Cells (Auto) Urine Bacteria (Auto) Opiates Screen Negative Methadone Screen Negative Barbiturate Screen Negative Phencyclidine Screen Negative Ur Amphetamines Screen Negative MDMA (Ecstasy) Screen Negative Benzodiazepines Screen Negative Cocaine Screen Negative U Marijuana (THC) Screen Negative Alcohol, Quantitative 464.3 H 10/29/19 10/29/19 10/30/19 17:56 18:06 05:28 WBC 4.7 RBC 3.83 L Hgb 12.7 Hct 37.1 D MCV 96.9 H MCH 33.3 MCHC 34.3 RDW 13.7 Plt Count 65 L D MPV 9.3 Absolute Neuts (auto) Neutrophils % Lymphocytes % Monocytes % Eosinophils % Basophils % Nucleated RBC % Sodium Potassium Chloride Carbon Dioxide Anion Gap BUN Creatinine Est GFR (CKD-EPI)AfAm Est GFR (CKD-EPI)NonAf Random Glucose Calcium Phosphorus Magnesium 2.4 Total Bilirubin AST ALT Alkaline Phosphatase Troponin I < 0.02 Total Protein Albumin Lipase 312 Urine Color Yellow Urine Appearance Clear Urine pH 6.0 Ur Specific [place] 1.024 Urine Protein 3+ H Urine Glucose (UA) Negative Urine Ketones 1+ H Urine Blood 1+ H Urine Nitrite Negative Urine Bilirubin Negative Urine Urobilinogen 1.0 Ur Leukocyte Esterase Negative Urine WBC (Auto) 10 Urine RBC (Auto) 36.0 Urine Casts (Auto) 2 U Epithel Cells (Auto) 20 Urine Bacteria (Auto) 39 Opiates Screen Methadone Screen Barbiturate Screen Phencyclidine Screen Ur Amphetamines Screen MDMA (Ecstasy) Screen Benzodiazepines Screen Cocaine Screen U Marijuana (THC) Screen Alcohol, Quantitative 10/30/19 10/30/19 05:28 10:40 WBC RBC Hgb Hct MCV MCH MCHC RDW Plt Count MPV Absolute Neuts (auto) Neutrophils % Lymphocytes % Monocytes % Eosinophils % Basophils % Nucleated RBC % Sodium 143 Potassium 3.3 L Chloride 106 Carbon Dioxide 25 Anion Gap 12 BUN 9.0 Creatinine 0.8 Est GFR (CKD-EPI)AfAm 130.42 Est GFR (CKD-EPI)NonAf 112.53 Random Glucose 89 Calcium 7.9 L Phosphorus 3.3 Magnesium 2.1 Total Bilirubin 1.0 AST 73 H ALT 53 Alkaline Phosphatase 68 Troponin I Total Protein 6.9 Albumin 3.8 Lipase Urine Color Dk yellow Urine Appearance Clear Urine pH 7.0 Ur Specific [place] 1.031 Urine Protein 1+ H Urine Glucose (UA) Negative Urine Ketones 2+ H Urine Blood Negative Urine Nitrite Negative Urine Bilirubin Negative Urine Urobilinogen 1.0 Ur Leukocyte Esterase Negative Urine WBC (Auto) 2 Urine RBC (Auto) 53 Urine Casts (Auto) 1 U Epithel Cells (Auto) 4 Urine Bacteria (Auto) 6 Opiates Screen Methadone Screen Barbiturate Screen Phencyclidine Screen Ur Amphetamines Screen MDMA (Ecstasy) Screen Benzodiazepines Screen Cocaine Screen U Marijuana (THC) Screen Alcohol, Quantitative HOSPITAL COURSE: Patient is a 39 year old male w a PHMx of alcohol abuse. reports drinking a bottle of burke a day. The patients last drink was on the . Patient has since been undergoing withdrawal symptoms. Ciwa score of 13 1. Alcohol withdrawal - last drink was 1 bottle of whiskey (burke) on 10/28 - Ativan therapy - monitor - thiamine and folate replacement - Transfer to [facility] - Seizure precaution - quantitative alcohol - 464.3 2. Nausea/vomiting/dehydration - zofran 4mg iVpush q8H PRN - Normal saline 1000mg - Multivitamin injection/thiamine/folicacid -prantoprazole 40mg 3. Hypokalemia - replaced potassium - 3.0 trending up 3.3 4. Date of Admission:10/29/19 Date of Discharge: 10/30/19 Minutes to complete discharge: 40 Discharge Summary Problems reviewed: Yes Reason For Visit: ALCOHOL DEPENDENCE WITH INTOXICATION Current Active Problems Alcohol dependence with intoxication (Acute) Alcohol withdrawal (Acute) Condition: Stable - Instructions Diet, Activity, Other Instructions: Your Visit You were seen in the hospital for complaints of nausea and vomiting. You were treated for alcohol withdrawal. your labs showed elevated liver enzymes after which you had an abdominal ultrasound done which did not show any acute findings. You were given IV fluids and multivitamins. You are now stable for discharge and will continue your alcohol detox at [facility]. Medications Please take the following medications; thiamine 100mg once a day by mouth folic acid 1mg once a day by mouth one multivitamin once a day by mouth Protonix 40mg once a day by mouth Please continue your ativan protocol for alcohol withdrawal: Ativan 2mg every 6 hours by mouth (2 more doses/5 total doses) Ativan 1mg every 6 hours by mouth (4doses) Ativan 0.5mg every 6 hours by mouth(4 doses) Follow Up Please follow up with your primary care physician. If you do not have one [place] [facility] [place] follow up with detox specialist Dr. Neely within one week Recommendations It is very important that you stop drinking alcohol. We recommend that you go to alcohol rehab at [facility] If you start experiencing worsening fevers, chills, nausea, vomitting, hallucinations, or seizures please proceed to your nearest emergency room immediately Referrals: [facility] [place] [facility] [place] [Provider Group] - 1 Week Saw Neely DO [Staff Physician] - 1 Week Disposition: TRANSFER ACUTE CARE/OTHER HOSP - Home Medications Comprehensive Discharge Medication List: Ambulatory Orders Folic Acid - 1 mg PO DAILY tablet 10/30/19 LORazepam [Ativan] 0.5 mg PO Q4H PRN tablet 10/30/19 LORazepam [Ativan] 0.5 mg PO Q6H tablet 10/30/19 LORazepam [Ativan] 1 mg PO 0500,1100,1700,2300 tablet 10/30/19 LORazepam [Ativan] 1 mg PO Q4H PRN tablet 10/30/19 LORazepam [Ativan] 2 mg PO 0500,1100,1700,2300 tablet 10/30/19 Multivitamins [Multivit ([facility] Formulary)] 1 tab PO DAILY tab 10/30/19 Pantoprazole Sodium [Protonix -] 40 mg PO DAILY tablet.ec 10/30/19 Thiamine HCl [Vitamin B1 -] 100 mg PO DAILY tablet 10/30/19 This patient is new to me today: No Emergency Visit: Yes ED Registration Date: 10/29/19 Care time: The patient presented to the Emergency Department on the above date and was hospitalized for further evaluation of their emergent condition. Critical Care patient: No - Discharge Referral Referred to [facility] Med [facility].C[facility] No ATTENDING PHYSICIAN STATEMENT I saw and evaluated the patient. I reviewed the resident's note and discussed the case with the resident. I agree with the resident's findings and plan as documented. SUBJECTIVE: OBJECTIVE: ASSESSMENT AND PLAN:
[2019-10-30 13:42] VITALS: BP 128/82
--- NOTE | 2019-10-30 14:06 | PN ---
Teaching Attending Note Name of Resident: Santhosh Lebron ATTENDING PHYSICIAN STATEMENT I saw and evaluated the patient. I reviewed the resident's note and discussed the case with the resident. I agree with the resident's findings and plan as documented. SUBJECTIVE: Feeling tremulous. Mild anxiety. Visual hallucinations resolved. No abdo pain/nausea/vomiting. No fever/chills. OBJECTIVE: Afebrile, Hemodynamically Stable. Tremor outstretched arms. Last Vital Signs Temp Pulse Resp BP Pulse Ox 98.3 F 100 H 20 128/82 96 10/30/19 08:42 10/30/19 13:30 10/30/19 13:30 10/30/19 13:30 10/30/19 13:30 HEENT - Atraumatic, Normocephalic. Heart - S1, S2, RRR Lungs - clear to auscultation Abdomen - soft, non-tender. Bowel Sounds normal. Extremities - no edema, no calf tenderness. Neuro - AAO x 3. Tone/Power normal all extremities. Mild tremor. Laboratory Results - last 24 hr 10/29/19 10/29/19 10/29/19 17:50 17:50 17:50 WBC 4.7 RBC 4.54 Hgb 15.0 Hct 44.2 MCV 97.4 H MCH 33.0 MCHC 33.9 RDW 13.4 Plt Count 98 L MPV 9.4 Absolute Neuts (auto) 2.8 Neutrophils % 58.2 Lymphocytes % 34.6 D Monocytes % 6.5 Eosinophils % 0.3 D Basophils % 0.4 Nucleated RBC % 0 Sodium 139 Potassium 3.0 L Chloride 96 L Carbon Dioxide 29 Anion Gap 14 BUN 9.4 Creatinine 0.9 Est GFR (CKD-EPI)AfAm 124.26 Est GFR (CKD-EPI)NonAf 107.21 Random Glucose 117 H Calcium 8.9 Phosphorus Magnesium Total Bilirubin 1.0 AST 99 H ALT 70 H Alkaline Phosphatase 84 Troponin I Total Protein 8.6 H Albumin 4.7 Lipase Urine Color Urine Appearance Urine pH Ur Specific [place] Urine Protein Urine Glucose (UA) Urine Ketones Urine Blood Urine Nitrite Urine Bilirubin Urine Urobilinogen Ur Leukocyte Esterase Urine WBC (Auto) Urine RBC (Auto) Urine Casts (Auto) U Epithel Cells (Auto) Urine Bacteria (Auto) Opiates Screen Negative Methadone Screen Negative Barbiturate Screen Negative Phencyclidine Screen Negative Ur Amphetamines Screen Negative MDMA (Ecstasy) Screen Negative Benzodiazepines Screen Negative Cocaine Screen Negative U Marijuana (THC) Screen Negative Alcohol, Quantitative 464.3 H 10/29/19 10/29/19 10/30/19 17:56 18:06 05:28 WBC 4.7 RBC 3.83 L Hgb 12.7 Hct 37.1 D MCV 96.9 H MCH 33.3 MCHC 34.3 RDW 13.7 Plt Count 65 L D MPV 9.3 Absolute Neuts (auto) Neutrophils % Lymphocytes % Monocytes % Eosinophils % Basophils % Nucleated RBC % Sodium Potassium Chloride Carbon Dioxide Anion Gap BUN Creatinine Est GFR (CKD-EPI)AfAm Est GFR (CKD-EPI)NonAf Random Glucose Calcium Phosphorus Magnesium 2.4 Total Bilirubin AST ALT Alkaline Phosphatase Troponin I < 0.02 Total Protein Albumin Lipase 312 Urine Color Yellow Urine Appearance Clear Urine pH 6.0 Ur Specific [place] 1.024 Urine Protein 3+ H Urine Glucose (UA) Negative Urine Ketones 1+ H Urine Blood 1+ H Urine Nitrite Negative Urine Bilirubin Negative Urine Urobilinogen 1.0 Ur Leukocyte Esterase Negative Urine WBC (Auto) 10 Urine RBC (Auto) 36.0 Urine Casts (Auto) 2 U Epithel Cells (Auto) 20 Urine Bacteria (Auto) 39 Opiates Screen Methadone Screen Barbiturate Screen Phencyclidine Screen Ur Amphetamines Screen MDMA (Ecstasy) Screen Benzodiazepines Screen Cocaine Screen U Marijuana (THC) Screen Alcohol, Quantitative 10/30/19 10/30/19 05:28 10:40 WBC RBC Hgb Hct MCV MCH MCHC RDW Plt Count MPV Absolute Neuts (auto) Neutrophils % Lymphocytes % Monocytes % Eosinophils % Basophils % Nucleated RBC % Sodium 143 Potassium 3.3 L Chloride 106 Carbon Dioxide 25 Anion Gap 12 BUN 9.0 Creatinine 0.8 Est GFR (CKD-EPI)AfAm 130.42 Est GFR (CKD-EPI)NonAf 112.53 Random Glucose 89 Calcium 7.9 L Phosphorus 3.3 Magnesium 2.1 Total Bilirubin 1.0 AST 73 H ALT 53 Alkaline Phosphatase 68 Troponin I Total Protein 6.9 Albumin 3.8 Lipase Urine Color Dk yellow Urine Appearance Clear Urine pH 7.0 Ur Specific [place] 1.031 Urine Protein 1+ H Urine Glucose (UA) Negative Urine Ketones 2+ H Urine Blood Negative Urine Nitrite Negative Urine Bilirubin Negative Urine Urobilinogen 1.0 Ur Leukocyte Esterase Negative Urine WBC (Auto) 2 Urine RBC (Auto) 53 Urine Casts (Auto) 1 U Epithel Cells (Auto) 4 Urine Bacteria (Auto) 6 Opiates Screen Methadone Screen Barbiturate Screen Phencyclidine Screen Ur Amphetamines Screen MDMA (Ecstasy) Screen Benzodiazepines Screen Cocaine Screen U Marijuana (THC) Screen Alcohol, Quantitative Discharge Medications Medication Instructions Recorded Folic Acid - 1 mg PO DAILY tablet 10/30/19 Multivitamins [Multivit ([facility] 1 tab PO DAILY tab 10/30/19 Formulary)] Pantoprazole Sodium [Protonix -] 40 mg PO DAILY tablet.ec 10/30/19 Thiamine HCl [Vitamin B1 -] 100 mg PO DAILY tablet 10/30/19 ASSESSMENT AND PLAN: 39 year old male with history of Alcohol Abuse, presents with malaise, vomiting, headache after alcohol consumption, with associated nausea and vomiting. 1. Acute Alcohol Withdrawal Ongoing tremor, Visual hallucinations resolved. Ativan as per [facility] withdrawal protocol. MVI, Thiamine, Folic Acid. GI Px - PPI. Medically stable for transfer to [facility] to complete detox - discussed with Dr. Neely. 2. Alcoholic Liver Disease/Alcoholic Hepatitis - Fatty Liver on US Abdo LFTs improving with hydration. Thrombocytopenia secondary to Liver Disease. No bruising/bleeding Recommend referral to GI/Hematology on discharge from [facility]. 3. Hypokalemia - repleted. Medically Stable for transfer to [facility] to complete detox.
[2019-10-31] MEDS ORDERED: LORazepam 1 MG TABLET PO SCH (05:00)
[2019-10-31] MEDS ORDERED: MULTIVITAMINS (DAILY MVI) TABLET (FP) PO SCH (10:00)
[2019-11-01] MEDS ORDERED: LORazepam 0.5 MG TABLET PO PRN
[2019-11-01] MEDS ORDERED: LORazepam 0.5 MG TABLET PO SCH (05:00)
[2019-11-02] MEDS ORDERED: LORazepam 0.5 MG TABLET PO ONE (05:00)
== END 2019-10-30 13:41 | disposition other institution (70) | DRG 775 ==
LOC: JER 17:18 → JERBED 20:09
PROVIDERS: ADMIT Internal Medicine
PROC: HZ2ZZZZ Detoxification Services for Substance Abuse Treatment (ICD-10-PCS; principal; 2019-10-29)
DX: F10.220 Alcohol dependence with intoxication, uncomplicated (principal); F10.239 Alcohol dependence with withdrawal, unspecified; D75.89 Other specified diseases of blood and blood-forming organs; R11.2 Nausea with vomiting, unspecified; R51 Headache; R00.0 Tachycardia, unspecified; K29.20 Alcoholic gastritis without bleeding; R63.0 Anorexia; Z68.28 Body mass index [BMI] 28.0-28.9, adult; R25.1 Tremor, unspecified; R74.0 Nonspecific elevation of levels of transaminase and lactic acid dehydrogenase [LDH]; D69.59 Other secondary thrombocytopenia; R80.8 Other proteinuria; F10.232 Alcohol dependence with withdrawal with perceptual disturbance; K70.0 Alcoholic fatty liver; K70.9 Alcoholic liver disease, unspecified; E87.6 Hypokalemia; Y90.8 Blood alcohol level of 240 mg/100 ml or more
CPT/HCPCS: 36415; 76705-TC; 80053; 80307; 81003; 83690; 83735; 84100; 84484; 85025; 85027; 93005; 93010; 99285-25; U0003

== ENCOUNTER 2019-11-05 18:23 | Emergency (ER) | payer OTHER ==
[2019-11-05 18:41] VITALS: BMI 29.1
--- NOTE | 2019-11-05 19:28 | PDOC ---
History of Present Illness - General Chief Complaint: Alcohol intoxication Stated Complaint: CHEST PAIN,INTOX Time Seen by Provider: 11/05/19 19:27 History Source: Patient Exam Limitations: Intoxication, Language Barrier - History of Present Illness Initial Comments: 11/05/19 20:27 39y M with PMH of alcohol use disorder presenting to the ER from [facility] for chest pain. Pt states the pain is substernal, does not radiate, worsened with exertion. He also endorses generalized weakness and body aches, pain in bilateral calves, nausea, vomiting and loose stools. He describes stools as coffee ground and black stools. Denies fever, SOB, back pain, falls, sick contacts. He drinks 1 bottle of whiskey daily, last drink was today around 2pm. Past History - Medical History Allergies/Adverse Reactions: Allergies Allergy/AdvReac Type Severity Reaction Status Date / Time No Known Allergies Allergy Verified 11/05/19 18:39 Anemia: No Asthma: No Cancer: No Cardiac Disorders: No CVA: No COPD: No CHF: No Dementia: No Diabetes: No GI Disorders: No Disorders: No HTN: No Hypercholesterolemia: No Kidney Stones: No Liver Disease: No Seizures: No Thyroid Disease: No - Surgical History Abdominal Surgery: No Appendectomy: No Cardiac Surgery: No Cholecystectomy: No Lung Surgery: No Neurologic Surgery: No Orthopedic Surgery: No - Reproductive History Testicular Surgery: No - Immunization History Immunization Up to Date: Yes - Psycho-Social/Smoking History Smoking History: Smoker current status UNK Have you smoked in the past 12 months: No Information on smoking cessation initiated: No - Substance Abuse Hx (Audit-C & DAST Scrn) How often the patient has a drink containing alcohol: 4 0r more times/wk Number of drinks the patient has on a typical day: 7 to 9 How often the patient has six or more drinks on one occasion: Daily or almost daily Score: In Men: 4 or > Positive; In Women: 3 or > Positive: 11 Screen Result (Pos requires Nsg. Audit-10AR): Positive In the last yr the pt used illegal drug/Rx for NonMed reason: No Score: Yes response is considered Positive: 0 Screen Result (Positive result requires Nsg. DAST-10): Negative Review of Systems - Review of Systems Constitutional: Yes: Chills. No: Fever HEENTM: No: Symptoms Reported Respiratory: No: Shortness of Breath Cardiac (ROS): Yes: See HPI ABD/GI: Yes: See HPI : No: Symptoms Reported Musculoskeletal: Yes: See HPI Integumentary: No: Symptoms Reported Neurological: Yes: See HPI *Physical Exam - Vital Signs Last Vital Signs Temp Pulse Resp BP Pulse Ox 99 F 96 H 20 116/73 97 11/05/19 18:39 11/05/19 18:39 11/05/19 18:39 11/05/19 18:39 11/05/19 18:50 - Physical Exam General Appearance: Yes: Nourished, Appropriately Dressed. No: Apparent Distress HEENT: positive: EOMI, JONY, Other (injected sclera). negative: Pale Conjunctivae, Scleral Icterus (R), Scleral Icterus (L) Neck: positive: Trachea midline, Supple Respiratory/Chest: positive: Lungs Clear, Normal Breath Sounds. negative: Crackles, Rales, Rhonchi, Stridor, Wheezing Cardiovascular: positive: Regular Rhythm, Regular Rate, S1, S2. negative: Edema, JVD, Murmur Vascular Pulses: Dorsalis-Pedis (R): 2+, Doralis-Pedis (L): 2+ Gastrointestinal/Abdominal: positive: Normal Bowel Sounds, Soft. negative: Tender, Distended, Guarding, Rebound, Tenderness, Hernia Musculoskeletal: negative: CVA Tenderness Extremity: positive: Normal Capillary Refill, Normal Inspection. negative: Pedal Edema, Swelling Integumentary: positive: Normal Color, Dry, Warm. negative: Swelling Neurologic: positive: director of corporate responsibility II-XII NML intact, Fully Oriented, Alert, Normal Mood/Affect, Normal Response, Motor Strength 5/5 Heart Score/ECG Review - History History: Slightly suspicious - Electrocardiogram EKG: Normal - Age Age: </= 45 - Risk Factors Risk Factors Heart Score: Yes Smoking History Based on the list above the patient has:: 1-2 risk factors - Troponin Troponin: </= normal limit - Score Heart Score - Total: 1 ED Treatment Course - LABORATORY CBC & Chemistry Diagram: 11/05/19 20:55 11/05/19 20:55 Medical Decision Making - Medical Decision Making 11/06/19 06:41 39y M with pmh of alcohol dependence presenting to the ER with complaints of chest pain, n/v, tarry stools, body aches, calf pain. vitals wnl. pt in no apparent distress, normal respirations, normotensive, no tremors. ddx includes dvt/pe, acs, pna, ptx, borhoff, galo-julian -cbc, cmp, cardiac labs, lipase -ctap, ct chest -fluids, ofirmev. mild transaminits, mild leukopenia, otherwise wnl. hgb stable, guaiac negative. hypokalemia, will treat. CTAP wnl, ct chest negative for pe. HEART score 2. trop negative EKG: nsr, no signs of acute ischemia. will dc to [facility] for assessment. spoke to Rn at [facility] about patient. upon discharge, pt started to complain of nausea and vomited. given SL zofran. CT head obtained, no bleed or pathology. pt is ambulatory with steady gait, vitals wnl, no signs of acute withdrawal. will dc. discussed results with pt, agrees to plan. will be going to [facility]. Discharge - Discharge Information Problems reviewed: Yes Clinical Impression/Diagnosis: Vomiting and diarrhea Chest pain Qualifiers: Chest pain type: unspecified Qualified Code(s): R07.9 - Chest pain, unspecified Alcohol dependence Qualifiers: Substance use status: with intoxication Complication of substance-induced condition: with unspecified complication Qualified Code(s): F10.229 - Alcohol dependence with intoxication, unspecified Condition: Good Disposition: HOME - Admission No - Follow up/Referral - Patient Discharge Instructions Additional Instructions: You were seen in the ER for chest pain. The blood tests are normal and the CT scans are normal. You will be going to [facility] for screening. Please return to the ER if you have worsening pain, start vomiting blood or if any new or concerning symptom develops. Thank you - Post Discharge Activity
--- NOTE | 2019-11-05 19:28 | PDOC ---
Attending Attestation - Resident Resident Name: Barbra Fountain - ED Attending Attestation I have performed the following: I have examined & evaluated the patient, The case was reviewed & discussed with the resident, I agree w/resident's findings & plan - HPI HPI: 11/05/19 21:01 see resident hpi - Physicial Exam PE: 11/05/19 21:01 see resident exam - Medical Decision Making 11/05/19 21:03 39-year-old male with history of alcohol dependence complaining of chest pain while at detox facility now also offering a history of generalized malaise nausea vomiting and loose stools We will plan for CTA of the chest, CT abdomen and pelvis both abdominal and cardiac labs as well as EKG IV fluids with antacids Pending results will evaluate for detox eligibility versus medical admission Discharge - Discharge Information Problems reviewed: Yes Clinical Impression/Diagnosis: Chest pain, Vomiting and diarrhea, Alcohol dependence - Follow up/Referral - Patient Discharge Instructions - Post Discharge Activity
[2019-11-05] MEDS ORDERED: FAMOTIDINE 20 MG/50 ML IVPB 20 MG/50 ML MG IVPB ONE ×2 (19:57→21:00)
[2019-11-05] MEDS ORDERED: ACETAMINOPHEN 1000 MG/100 ML VIAL (NON FORMULARY) IVPB ONE (19:57)
[2019-11-05] MEDS ORDERED: ACETAMINOPHEN INJECTION 100 ML IVPB ONE (21:00)
[2019-11-05 21:08] LABS: BASO % 1.5 % (0-2.0); EOS % 0.5 % (0-4.5); HEMATOCRIT 43.6 % (35.4-49); HEMOGLOBIN 14.9 GM/dL (11.7-16.9); LYMPH % 35.3 % (8-40); MCH 33.6 pg (25.7-33.7); MCHC 34.3 g/dl (32.0-35.9); MEAN CELL VOLUME 98.2 fl (80-96); MEAN PLT VOLUME 8.9 fl (7.5-11.1); NEUT % 48.7 % (42.8-82.8); PLATELET COUNT 121 K/MM3 (134-434); RBC 4.44 M/mm3 (4.00-5.60); RDW 14.2 % (11.9-15.9); WHITE BLOOD COUNT 2.7 K/mm3 (4.0-10.0)
[2019-11-05] MEDS ORDERED: LACTATED RINGERS SOLUTION 1000 ML INFUS.BAG IV ONE (21:36)
[2019-11-05 21:45] LABS: ALBUMIN 4.4 g/dl (3.4-5.0); ALK PHOS 91 U/L (45-117); ANION GAP 13 MMOL/L (8-16); BILIRUBIN,TOTAL 0.8 mg/dL (0.2-1); BLOOD UREA NITROGEN 5.3 mg/dL (7-18); CALCIUM 8.8 mg/dL (8.5-10.1); CHLORIDE 102 mmol/L (98-107); CO2 27 mmol/L (21-32); CREATININE 0.8 mg/dL (0.55-1.3); GLUCOSE,RANDOM 107 mg/dL (74-106); POTASSIUM 3.1 mmol/L (3.5-5.1); SGOT/AST 163 U/L (15-37); SGPT/ALT 107 U/L (13-61); SODIUM 142 mmol/L (136-145); TOT PROT 8.2 g/dl (6.4-8.2)
[2019-11-05] MEDS ORDERED: POTASSIUM CHLORIDE TABS 10 MEQ TABLET.ER (FP) PO ONE (22:25)
[2019-11-05] MEDS ORDERED: POTASSIUM CHLORIDE TABS 20 MEQ TABLET.ER (FP) PO ONE (23:39)
[2019-11-06 01:00] VITALS: BP 116/74; PULSE 77; TEMP 97.9
[2019-11-06] MEDS ORDERED: ONDANSETRON 4 MG/2 ML VIAL IVPUSH ONE (01:16)
[2019-11-06] MEDS ORDERED: ONDANSETRON *ODT* 4 MG TABLET ONE (01:20)
[2019-11-06] MEDS ORDERED: ONDANSETRON *ODT* 4 MG TABLET SL ONE (01:23)
--- NOTE | 2019-11-06 10:40 | EKG ---
Test Reason : Blood Pressure : / mmHG Vent. Rate : 093 BPM Atrial Rate : 093 BPM P-R Int : 194 ms QRS Dur : 100 ms QT Int : 356 ms P-R-T Axes : 032 033 022 degrees QTc Int : 442 ms NORMAL SINUS RHYTHM NORMAL ECG WHEN COMPARED WITH ECG OF 29-OCT-2019 19:03, NO SIGNIFICANT CHANGE WAS FOUND Confirmed by MD Way Daniel ([id number]) on 11/06/2019 10:39:53 AM Referred By: Confirmed By:Deion Way MD
== END 2019-11-06 02:02 | disposition home or self-care (01) ==
LOC: JER 18:23
PROC: 3E033GC Introduction of Other Therapeutic Substance into Peripheral Vein, Percutaneous Approach (ICD-10-PCS; principal; 2019-11-05)
DX: R07.9 Chest pain, unspecified (principal); F10.229 Alcohol dependence with intoxication, unspecified; R11.2 Nausea with vomiting, unspecified
CPT/HCPCS: 36415; 70450-TC; 71046-TC-FY; 71275-TC; 74177-TC; 80053; 82272; 82550; 82553; 83690; 84484; 85025; 93005; 93010; 99285-25; J0131; Q0162; Q9967

== ENCOUNTER 2019-11-13 08:17 | Inpatient (IN) | payer OTHER ==
--- NOTE | 2019-11-13 09:09 | BHS.RME ---
Substance Use & Tx History - Substance Use History Alcohol Substance amount: 2 bottles whiskey Frequency of use: Daily Substance route: Oral Date of Last Use: 11/13/19 - Last Treatment Date of last treatment: none Physical/Psych/Mental Status - Behavior General Behavior: Increased activity (restlessness, agitation) Eye Contact: Normal - Cooperativeness Cooperativeness: Cooperative - Thinking Thought Processes: Tight, Logical, Goal Directed - Physical Health Problems Is patient presently having any pain?: No Does patient presently have any injuries (include location): No Does patient currently have a fever: No Is patient : No CIWA Nausea/Vomitin-Cont. Nausea/Vomiting Muscle Tremors: 4-Moderate,w/Arms Extend Anxiety: 3 Agitation: 4-Moderately Restless Paroxysmal Sweats: 6 Orientation: 1-Uncertain about Date Tacttile Disturbances: 0-None Auditory Disturbances: 0-None Visual Disturbances: 0-None Headache: 0-None Present CIWA-Ar Total Score: 25
[2019-11-13 09:30] VITALS: BMI 26.3
[2019-11-13] MEDS ORDERED: MAGNESIUM CITRATE 300 ML BOTTLE PO PRN (09:39)
[2019-11-13] MEDS ORDERED: METHOCARBAMOL 500 MG TABLET PO PRN (09:39)
[2019-11-13] MEDS ORDERED: ONDANSETRON *ODT* 4 MG TABLET SL ONE ×2 (09:39)
[2019-11-13] MEDS ORDERED: BISMUTH SUBSALICYLATE 262 MG/15 ML BTL PO PRN (09:39)
[2019-11-13] MEDS ORDERED: MENTHOL/PHENOL 1 EACH UD MM PRN (09:39)
[2019-11-13] MEDS ORDERED: ACETAMINOPHEN 325 MG TABLET (FP) PO PRN ×2 (09:39)
[2019-11-13] MEDS ORDERED: MAGNESIUM HYDROX 2400MG/30ML ORAL SUSPENSION 30 ML CUP PO PRN (09:39)
[2019-11-13] MEDS ORDERED: ONDANSETRON *ODT* 4 MG TABLET SL PRN (09:39)
[2019-11-13] MEDS ORDERED: IBUPROFEN 400 MG TABLET (FP) PO PRN (09:39)
--- NOTE | 2019-11-13 09:39 | HP ---
CIWA Score Nausea/Vomitin-Cont. Nausea/Vomiting Muscle Tremors: 4-Moderate,w/Arms Extend Anxiety: 3 Agitation: 4-Moderately Restless Paroxysmal Sweats: 6 Orientation: 1-Uncertain about Date Tacttile Disturbances: 0-None Auditory Disturbances: 0-None Visual Disturbances: 0-None Headache: 0-None Present CIWA-Ar Total Score: 25 - Admission Criteria OASAS Guidelines: Admission for Medically Managed Detox: Requires at least one of the followin. CIWA greater than 12 2. Seizures within the past 24 hours 3. Delirium tremens within the past 24 hours 4. Hallucinations within the past 24 hours 5. Acute intervention needed for co occurring medical disorder 6. Acute intervention needed for co occurring psychiatric disorder 7. Severe withdrawal that cannot be handled at a lower level of care (continued vomiting, continued diarrhea, abnormal vital signs) requiring intravenous medication and/or fluids 8. Admitting History and Physical - Admission Chief Complaint: Mr. Santiago presents to [facility] requesting admission to detox for alcohol use disorder. History of Present Illness: Mr. Santiago presents to [facility] requesting admission to detox for alcohol use disorder. He is nauseous and vomitting upon presentation. He was last here 11/05/19 and sent to [facility] with chest pain. Workup including, chest xray, CT of chest, thorax, abdomen and pelvis revealed no acute pathology. Troponins were negative. He has had several [facility] visits, several of which he did not complete detox. PMH"/PSH/ Psych/Legal: none SOC: lives with GF in an apt. 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 History Source: Patient Limitations to Obtaining History: No Limitations - Past Medical History Psych: Yes: Addictions - Past Surgical History Past Surgical History: Yes: None - Smoking History Smoking history: Smoker current status UNK Have you smoked in the past 12 months: No - Alcohol/Substance Use Hx Alcohol Use: Yes History of Substance Use: reports: None - Social History ADL: Independent History of Recent Travel: No Admission ROS [facility] - [facility] Allergies/Adverse Reactions: Allergies Allergy/AdvReac Type Severity Reaction Status Date / Time No Known Allergies Allergy Verified 11/13/19 09:28 Exam Limitations: No Limitations - Ebola screening Have you traveled outside of the country in the last 21 days: No Have you been sick,other than usual withdrawal symptoms: No Do you have a fever: No - Review of Systems Constitutional: Malaise EENT: reports: No Symptoms Reported Respiratory: reports: No Symptoms reported Cardiac: reports: No Symptoms Reported GI: reports: Nausea, Vomiting : reports: No Symptoms Reported Musculoskeletal: reports: No Symptoms Reported Integumentary: reports: No Symptoms Reported Neuro: reports: No Symptoms reported Endocrine: reports: No Symptoms Reported Hematology: reports: No Symptoms Reported Psychiatric: reports: Anxious Patient History - Patient Medical History Hx Anemia: No Hx Asthma: No Hx Chronic Obstructive Pulmonary Disease (COPD): No Hx Cancer: No Hx Cardiac Disorders: No Hx Congestive Heart Failure: No Hx Hypertension: No Hx Hypercholesterolemia: No Hx Pacemaker: No HX Cerebrovascular Accident: No Hx Seizures: No Hx Dementia: No Hx Diabetes: No Hx Gastrointestinal Disorders: No Hx Liver Disease: No Hx Genitourinary Disorders: No Hx Sexually Transmitted Disorders: No Hx Renal Disease (ESRD): No Hx Thyroid Disease: No Hx Human Immunodeficiency Virus (HIV): No (last 2018 negative) Hx Hepatitis C: No Hx Depression: Yes (NOT IN [place].) Hx Suicide Attempt: No Hx Bipolar Disorder: No Hx Schizophrenia: No - Patient Surgical History Past Surgical History: No Hx Neurologic Surgery: No Hx Cataract Extraction: No Hx Cardiac Surgery: No Hx Lung Surgery: No Hx Breast Surgery: No Hx Breast Biopsy: No Hx Abdominal Surgery: No Hx Appendectomy: No Hx Cholecystectomy: No Hx Genitourinary Surgery: No Hx Section: No Hx Orthopedic Surgery: No Anesthesia Reaction: No - PPD History Date: 03/19/19 Results: 20mm - Smoking Cessation Smoking history: Smoker current status UNK Have you smoked in the past 12 months: No Hx Chewing Tobacco Use: No Initiated information on smoking cessation: No - Substances abused Alcohol Substance route: Oral Frequency: Daily Amount used: 2 bottles whiskey Age of first use: 23 Date of last use: 11/12/19 Admission Physical Exam BHS - Vital Signs Vital Signs: Vital Signs - 24 hr 11/13/19 09:28 Temperature 96.4 F L Pulse Rate 123 H Respiratory 18 Rate Blood Pressure 147/95 - Physical General Appearance: Yes: Nourished, Moderate Distress, Tremorous HEENTM: Yes: EOMI, Hearing grossly Normal, Normocephalic, Normal Voice Respiratory: Yes: Lungs Clear, Normal Breath Sounds, No Accessory Muscle Use Neck: Yes: Within Normal Limits, Supple Breast: Yes: Breast Exam Deferred Cardiology: Yes: Regular Rhythm, S1, S2 Abdominal: Yes: Flat, Increased Bowel Sounds, Tenderness (mild diffuse) Back: Yes: Normal Inspection Musculoskeletal: Yes: full range of Motion Extremities: Yes: Normal Inspection, Non-Tender Integumentary: Yes: Normal Color, Dry, Warm - Diagnostic (1) History of seizure Current Visit: No Status: Chronic (2) Vomiting and diarrhea Current Visit: Yes Status: Acute (3) Alcohol dependence with uncomplicated withdrawal Current Visit: Yes Status: Acute Cleared for Admission S - Detox or Rehab [facility] Level of Care: Medically Managed Detox Regimen/Protocol: Ativan Breathalyzer - Breathalyzer Breathalyzer: 0.097 Urine Drug Screen - Test Device Lot number: [id number] Expiration date: 12/29/20 - Control Is test valid?: Yes - Results Drug screen NEGATIVE: Yes Urine drug screen results: BZO-Benzodiazepines Inpatient Rehab Admission - Rehab Decision to Admit Inpatient rehab admission?: No
[2019-11-13] MEDS ORDERED: diazePAM 5 MG TABLET PO ONE (09:51)
[2019-11-13] MEDS: LORazepam 2 MG TABLET PO SCH ×3 (10:32→22:37)
[2019-11-13] MEDS: hydrOXYzine PAMOATE 25 MG CAPSULE (FP) PO SCH ×4 (10:32→22:37)
[2019-11-13] MEDS: PRENATAL VITAMINS W/ FOLIC ACID TABLET (FP) PO SCH (10:32)
--- NOTE | 2019-11-13 12:38 | PN ---
S Progress Note Note: Pt is a 39 y/o male admitted to the unit from [facility] this morning to detox for alcohol intoxication/withdrawal sx. Pt c/o nausea and vomiting with moderate tremors. Hx of Alcohol related Seizure last episode 2 days ago. Vital Signs - 8 hr 11/13/19 11/13/19 11/13/19 09:28 10:15 10:30 Temperature 96.4 F L 97.8 F Pulse Rate 123 H 138 H 89 Respiratory 18 24 H 24 H Rate Blood Pressure 147/95 140/83 149/86 O2 Sat by Pulse 96 Oximetry (%) alert o x 3 vomiting yellow tinged liquid resting in bed at rounding time-10:45 a.m Pt received dose of Ativan as directed:Zofran 4 mg ODT and Vistaril prn as directed. Nurse Radha Erickson reported that pt received Valium 5 mg x 1 at [facility] as well before coming to the unit. Monitor pt status maintain safety encourage po fluids as tolerated
[2019-11-13] MEDS: LORazepam 1 MG TABLET PO PRN (15:22)
[2019-11-13 16:31] LABS: HEMATOCRIT 44.1 % (35.4-49); MCH 34.2 pg (25.7-33.7); MEAN CELL VOLUME 100.8 fl (80-96); MEAN PLT VOLUME 9.2 fl (7.5-11.1); PLATELET COUNT 114 K/MM3 (134-434); RBC 4.38 M/mm3 (4.00-5.60); RDW 15.2 % (11.9-15.9); WHITE BLOOD COUNT 2.9 K/mm3 (4.0-10.0)
[2019-11-13 16:39] LABS: BILIRUBIN,TOTAL 1.5 mg/dL (0.2-1); BLOOD UREA NITROGEN 10.6 mg/dL (7-18); CALCIUM 10.7 mg/dL (8.5-10.1); CREATININE 0.9 mg/dL (0.55-1.3); TOT PROT 8.9 g/dl (6.4-8.2)
[2019-11-13] MEDS ORDERED: TRIMETHOBENZAMIDE HCL 200MG/2ML INJ IM ONE (17:03)
--- NOTE | 2019-11-13 17:06 | PN ---
BHS Progress Note Note: pt w/ c/o nausea / vomiting Vital Signs - 24 hr 11/13/19 11/13/19 11/13/19 09:28 10:15 10:30 Temperature 96.4 F L 97.8 F Pulse Rate 123 H 138 H 89 Respiratory 18 24 H 24 H Rate Blood Pressure 147/95 140/83 149/86 O2 Sat by Pulse 96 Oximetry (%) 11/13/19 13:17 Temperature 97.3 F L Pulse Rate 105 H Respiratory 16 Rate Blood Pressure 131/74 O2 Sat by Pulse 97 Oximetry (%) P : Tigan i.m once
[2019-11-13] MEDS: MELATONIN 5 MG TABLETS PO SCH (22:37)
[2019-11-13] MEDS: THIAMINE HCL 100 MG TABLET (FP) PO SCH (22:37)
--- NOTE | 2019-11-14 01:24 | PN ---
S Progress Note Note: SEEN FOR WHAT THE NURSE REPORTED PATIENT C/O CHEST PAIN RADIATING DOWN ARM. CLIENT SEEN LYING IN BED WITH EKG LEADS ATTACHED. DENIES C.P., SOB, WEAKNESS, NUMBNESS, JERRY. REPORTS PAIN TO MID ABD POINT TO EPIGASTRIC AREA. REPORTS PAIN RADIATES DOWN ABD. Vital Signs Temperature 98.2 F 11/13/19 21:00 Pulse Rate 102 H 11/13/19 21:00 Respiratory Rate 16 11/13/19 21:00 Blood Pressure 133/85 11/13/19 21:00 O2 Sat by Pulse Oximetry (%) 96 11/13/19 21:00 SEEN LYING IN BED A/O X3 APPEARS TO BE IN WITHDRAWAL. FLUSHED, SWEATY SKIN SKIN AND SLIGHT HAND TREMORS NOTED EKG NL A- WITHDRAWAL SX'S P- BENTYL ORDERED MYLANTA ORDERED ATIVAN PRN ORDERED CONT TO MONITOR CLINICALLY
[2019-11-14] MEDS ORDERED: DICYCLOMINE HCL 10 MG CAPSULE PO PRN (01:37)
[2019-11-14] MEDS: LORazepam 1 MG TABLET PO PRN (01:52)
[2019-11-14] MEDS: MAG HYDROX/AL HYDROX/SIMETH 30 ML UNIT-DOSE CUP PO PRN ×2 (01:52→19:31)
[2019-11-14] MEDS: hydrOXYzine PAMOATE 25 MG CAPSULE (FP) PO SCH ×5 (06:42→22:01)
[2019-11-14] MEDS: LORazepam 2 MG TABLET PO SCH ×4 (06:42→22:05)
[2019-11-14] MEDS: PRENATAL VITAMINS W/ FOLIC ACID TABLET (FP) PO SCH (10:42)
--- NOTE | 2019-11-14 13:09 | PN ---
S CIWA - CIWA Score Nausea/Vomitin-No Nausea/No Vomiting Muscle Tremors: 4-Moderate,w/Arms Extend Anxiety: 4-Mod. Anxious/Guarded Agitation: 3 Paroxysmal Sweats: 1-Minimal Palms Moist Orientation: 0-Oriented Tacttile Disturbances: 0-None Auditory Disturbances: 0-None Visual Disturbances: 0-None Headache: 0-None Present CIWA-Ar Total Score: 12 BHS Progress Note (SOAP) Subjective: Pt was seen this morning during rounds in bed, nausea and vomiting resolved currently. C/o Tremors anxiety slight irritability. Objective: 11/14/19 13:08 Vital Signs - 24 hr 11/13/19 11/13/19 11/13/19 13:17 16:35 21:00 Temperature 97.3 F L 97.8 F 98.2 F Pulse Rate 105 H 107 H 102 H Respiratory 16 16 16 Rate Blood Pressure 131/74 140/86 133/85 O2 Sat by Pulse 97 96 Oximetry (%) 11/14/19 11/14/19 11/14/19 01:31 07:00 09:48 Temperature 97.8 F 98 F Pulse Rate 82 83 77 Respiratory 18 16 Rate Blood Pressure 116/72 113/71 108/72 O2 Sat by Pulse 96 97 Oximetry (%) Laboratory Tests 11/13/19 11/13/19 11/13/19 09:50 09:50 09:50 WBC 2.9 L RBC 4.38 Hgb 15.0 Hct 44.1 MCV 100.8 H MCH 34.2 H MCHC 34.0 RDW 15.2 Plt Count 114 L MPV 9.2 Sodium 140 Potassium 3.0 L Chloride 97 L Carbon Dioxide 29 Anion Gap 15 BUN 10.6 Creatinine 0.9 Est GFR (CKD-EPI)AfAm 124.26 Est GFR (CKD-EPI)NonAf 107.21 Random Glucose 127 H Calcium 10.7 H Total Bilirubin 1.5 H AST 131 H ALT 85 H Alkaline Phosphatase 97 Total Protein 8.9 H Albumin 5.0 Syphilis Serology Non-reactive COVID-19 (PAVAN) 11/13/19 09:50 WBC RBC Hgb Hct MCV MCH MCHC RDW Plt Count MPV Sodium Potassium Chloride Carbon Dioxide Anion Gap BUN Creatinine Est GFR (CKD-EPI)AfAm Est GFR (CKD-EPI)NonAf Random Glucose Calcium Total Bilirubin AST ALT Alkaline Phosphatase Total Protein Albumin Syphilis Serology COVID-19 (PAVAN) Not detected covid-19 not detected alert o x 3 nad pt seen in bed and communicated needs coherently. Assessment: 11/14/19 14:23 withdrawal sx Plan: cont detox increase po fluids maintain safety
[2019-11-14] MEDS: MELATONIN 5 MG TABLETS PO SCH (22:01)
[2019-11-14] MEDS: THIAMINE HCL 100 MG TABLET (FP) PO SCH (22:05)
[2019-11-15] MEDS: hydrOXYzine PAMOATE 25 MG CAPSULE (FP) PO SCH ×5 (06:08→22:45)
[2019-11-15] MEDS: LORazepam 1 MG TABLET PO SCH ×4 (06:08→22:45)
[2019-11-15 09:47] LABS: HEMATOCRIT 40.5 % (35.4-49); HEMOGLOBIN 14.1 GM/dL (11.7-16.9); MCH 34.5 pg (25.7-33.7); MCHC 34.8 g/dl (32.0-35.9); MEAN CELL VOLUME 99.2 fl (80-96); MEAN PLT VOLUME 9.9 fl (7.5-11.1); PLATELET COUNT 71 K/MM3 (134-434); RBC 4.09 M/mm3 (4.00-5.60); RDW 15.1 % (11.9-15.9); WHITE BLOOD COUNT 2.8 K/mm3 (4.0-10.0)
[2019-11-15 09:52] LABS: INR 0.99 (0.83-1.09); PROTHROMBIN TIME (PATIENT) 11.7 SEC (9.7-13.0)
[2019-11-15] MEDS: MAG HYDROX/AL HYDROX/SIMETH 30 ML UNIT-DOSE CUP PO PRN ×2 (09:52→17:36)
[2019-11-15 09:57] LABS: ALBUMIN 4.1 g/dl (3.4-5.0); BILIRUBIN,TOTAL 2.6 mg/dL (0.2-1); CALCIUM 9.7 mg/dL (8.5-10.1); POTASSIUM 3.2 mmol/L (3.5-5.1); TOT PROT 7.6 g/dl (6.4-8.2)
[2019-11-15] MEDS: PRENATAL VITAMINS W/ FOLIC ACID TABLET (FP) PO SCH (10:35)
--- NOTE | 2019-11-15 15:58 | PN ---
S CIWA - CIWA Score Nausea/Vomitin-No Nausea/No Vomiting Muscle Tremors: 3 Anxiety: 3 Agitation: 0-Normal Activity Paroxysmal Sweats: 1-Minimal Palms Moist Orientation: 0-Oriented Tacttile Disturbances: 0-None Auditory Disturbances: 0-None Visual Disturbances: 0-None Headache: 0-None Present CIWA-Ar Total Score: 7 S Progress Note (SOAP) Subjective: Pt reports decreased withdrawal sx with med taper. slight tremors fatigue hicupps Objective: Vital Signs 11/15/19 11/15/19 09:53 13:10 Temperature 97.7 F 97.5 F L Pulse Rate 80 94 H Respiratory 18 18 Rate Blood Pressure 100/76 106/68 O2 Sat by Pulse 96 98 Oximetry (%) Laboratory Tests 11/13/19 11/13/19 11/13/19 09:50 09:50 09:50 WBC 2.9 L RBC 4.38 Hgb 15.0 Hct 44.1 MCV 100.8 H MCH 34.2 H MCHC 34.0 RDW 15.2 Plt Count 114 L MPV 9.2 PT with INR INR Sodium 140 Potassium 3.0 L Chloride 97 L Carbon Dioxide 29 Anion Gap 15 BUN 10.6 Creatinine 0.9 Est GFR (CKD-EPI)AfAm 124.26 Est GFR (CKD-EPI)NonAf 107.21 Random Glucose 127 H Calcium 10.7 H Total Bilirubin 1.5 H AST 131 H ALT 85 H Alkaline Phosphatase 97 Total Protein 8.9 H Albumin 5.0 Syphilis Serology Non-reactive COVID-19 (PAVAN) 11/13/19 11/15/19 11/15/19 09:50 07:20 07:20 WBC 2.8 L RBC 4.09 Hgb 14.1 Hct 40.5 MCV 99.2 H MCH 34.5 H MCHC 34.8 RDW 15.1 Plt Count 71 L D MPV 9.9 PT with INR INR Sodium 136 Potassium 3.2 L Chloride 94 L Carbon Dioxide 32 Anion Gap 10 BUN 7.0 Creatinine 1.0 Est GFR (CKD-EPI)AfAm 109.40 Est GFR (CKD-EPI)NonAf 94.39 Random Glucose 138 H Calcium 9.7 Total Bilirubin 2.6 H AST 655 H ALT 267 H Alkaline Phosphatase 103 Total Protein 7.6 Albumin 4.1 Syphilis Serology COVID-19 (PAVAN) Not detected 11/15/19 07:20 WBC RBC Hgb Hct MCV MCH MCHC RDW Plt Count MPV PT with INR 11.70 INR 0.99 Sodium Potassium Chloride Carbon Dioxide Anion Gap BUN Creatinine Est GFR (CKD-EPI)AfAm Est GFR (CKD-EPI)NonAf Random Glucose Calcium Total Bilirubin AST ALT Alkaline Phosphatase Total Protein Albumin Syphilis Serology COVID-19 (PAVAN) Labs noted-Elevated Liver enzymes Alert o x 3 nad oob ambulating with steady gait Assessment: 11/17/19 17:00 mild withdrawal sx Plan: continue detox increase po fluids maintain safety d/w pt the need to stop alcohol intake due to liver effects-pt verbalized understanding. to follow up with his PCP after discharge from treatment.
[2019-11-15] MEDS ORDERED: TRIMETHOBENZAMIDE HCL 200MG/2ML INJ IM ONE (19:25)
[2019-11-15] MEDS: THIAMINE HCL 100 MG TABLET (FP) PO SCH (22:44)
[2019-11-15] MEDS: MELATONIN 5 MG TABLETS PO SCH (22:44)
[2019-11-16] MEDS ORDERED: LORazepam 0.5 MG TABLET PO PRN
[2019-11-16] MEDS ORDERED: LORazepam 0.5 MG TABLET PO SCH (05:00)
[2019-11-16] MEDS: hydrOXYzine PAMOATE 25 MG CAPSULE (FP) PO SCH (06:31)
[2019-11-16] MEDS: PRENATAL VITAMINS W/ FOLIC ACID TABLET (FP) PO SCH (09:51)
[2019-11-16 10:33] VITALS: BP 115/81; PULSE 95; TEMP 97.3
--- NOTE | 2019-11-16 11:43 | DS ---
[facility] Detox Discharge Summary Admission Date: 11/13/19 Discharge Date: 11/16/19 - History Present History: Alcohol Dependence Additional Comments: Pt is medically cleared and discharged today. Pt completed the detox protocol. Pt is encouraged to follow-up with an outpatient CD program and also to follow- up with his pmd which he verbalized understanding. Pt is AOX3, in no acute respiratory distress, Full ROM, and ambulatory. Pertinent Past History: h/o alcohol use disorder. - Physical Exam Results Vital Signs: Vital Signs Temperature 97.3 F L 11/16/19 08:40 Pulse Rate 95 H 11/16/19 08:40 Respiratory Rate 18 11/16/19 08:40 Blood Pressure 115/81 11/16/19 08:40 O2 Sat by Pulse Oximetry (%) 98 11/16/19 08:40 Vital Signs 11/16/19 11/16/19 06:35 08:40 Temperature 98.0 F 97.3 F L Pulse Rate 76 95 H Respiratory 18 18 Rate Blood Pressure 122/79 115/81 O2 Sat by Pulse 96 98 Oximetry (%) Pertinent Admission Physical Exam Findings: withdrawal symptoms. - Treatment Hospital Course: Detox Protocol Followed, Detoxed Safely, Responded well, D ischarged Condition Good - Medication Discharge Medications: Ambulatory Orders NK [No Known Home Medication] 11/13/19 - Diagnosis (1) Alcohol abuse Status: Acute (2) Alcohol dependence with uncomplicated withdrawal Status: Acute (3) Fatty liver Status: Chronic - AMA Did Patient Leave Against Medical Advice: No
[2019-11-17] MEDS ORDERED: LORazepam 0.5 MG TABLET PO ONE (05:00)
== END 2019-11-16 09:55 | disposition home or self-care (01) | DRG 775 ==
LOC: YASAS 08:17 → Y5N DETOX 09:48
PROVIDERS: ADMIT Allergy & Immunology; ATTEND Allergy & Immunology
PROC: HZ2ZZZZ Detoxification Services for Substance Abuse Treatment (ICD-10-PCS; principal; 2019-11-13)
DX: F10.230 Alcohol dependence with withdrawal, uncomplicated (principal); F32.9 Major depressive disorder, single episode, unspecified; K76.0 Fatty (change of) liver, not elsewhere classified; G40.509 Epileptic seizures related to external causes, not intractable, without status epilepticus; R10.13 Epigastric pain; R11.2 Nausea with vomiting, unspecified
CPT/HCPCS: 36415; 80053; 85027; 85610; 86780; Q0162; U0003

== ENCOUNTER 2020-04-14 08:20 | Inpatient (IN) | payer OTHER ==
[2020-04-14 08:51] VITALS: BMI 28.0
[2020-04-14] MEDS ORDERED: ONDANSETRON *ODT* 4 MG TABLET ONE (08:56)
[2020-04-14] MEDS: ONDANSETRON *ODT* 4 MG TABLET SL PRN ×2 (09:00→22:14)
[2020-04-14] MEDS ORDERED: IBUPROFEN 400 MG TABLET (FP) PO PRN (09:03)
[2020-04-14] MEDS ORDERED: MAG HYDROX/AL HYDROX/SIMETH 30 ML UNIT-DOSE CUP PO PRN (09:03)
[2020-04-14] MEDS ORDERED: ACETAMINOPHEN 325 MG TABLET (FP) PO PRN (09:03)
[2020-04-14] MEDS ORDERED: BISMUTH SUBSALICYLATE 262 MG/15 ML BTL PO PRN (09:03)
[2020-04-14] MEDS ORDERED: MAGNESIUM CITRATE 300 ML BOTTLE PO PRN (09:03)
[2020-04-14] MEDS ORDERED: MAGNESIUM HYDROX 2400MG/30ML ORAL SUSPENSION 30 ML CUP PO PRN (09:03)
[2020-04-14] MEDS ORDERED: MENTHOL/PHENOL 1 EACH UD MM PRN (09:03)
[2020-04-14] MEDS: PRENATAL VITAMINS W/ FOLIC ACID TABLET (FP) PO SCH (09:59)
[2020-04-14] MEDS: hydrOXYzine PAMOATE 25 MG CAPSULE (FP) PO SCH ×4 (09:59→22:13)
[2020-04-14] MEDS: PANTOPRAZOLE 40 MG TABLET PO SCH (09:59)
[2020-04-14] MEDS: LORazepam 2 MG TABLET PO SCH ×3 (09:59→22:13)
[2020-04-14 15:37] LABS: HEMATOCRIT 43.5 % (35.4-49); HEMOGLOBIN 14.8 GM/dL (11.7-16.9); MCH 32.4 pg (25.7-33.7); MEAN CELL VOLUME 95.3 fl (80-96); MEAN PLT VOLUME 8.8 fl (7.5-11.1); PLATELET COUNT 124 K/MM3 (134-434); RBC 4.57 M/mm3 (4.00-5.60); RDW 14.3 % (11.9-15.9); WHITE BLOOD COUNT 3.4 K/mm3 (4.0-10.0)
[2020-04-14 15:39] LABS: POTASSIUM 3.1 mmol/L (3.5-5.1)
[2020-04-14 15:42] LABS: ALBUMIN 4.6 g/dl (3.4-5.0); BLOOD UREA NITROGEN 9.6 mg/dL (7-18); CALCIUM 8.7 mg/dL (8.5-10.1)
[2020-04-14 15:47] LABS: BILIRUBIN,TOTAL 1.1 mg/dL (0.2-1); TOT PROT 8.5 g/dl (6.4-8.2)
[2020-04-14 16:37] LABS: HIV INTERPRETATION NEGATIVE (NEGATIVE)
[2020-04-14] MEDS: THIAMINE HCL 100 MG TABLET (FP) PO SCH (22:13)
[2020-04-14] MEDS: MELATONIN 5 MG TABLETS PO SCH (22:13)
[2020-04-15] MEDS: LORazepam 1 MG TABLET PO PRN ×3 (02:54→20:10)
[2020-04-15] MEDS: METHOCARBAMOL 500 MG TABLET PO PRN ×3 (02:54→20:07)
[2020-04-15] MEDS: LORazepam 2 MG TABLET PO SCH ×4 (04:51→22:07)
[2020-04-15] MEDS: hydrOXYzine PAMOATE 25 MG CAPSULE (FP) PO SCH ×5 (05:06→22:08)
[2020-04-15] MEDS: PANTOPRAZOLE 40 MG TABLET PO SCH (10:11)
[2020-04-15] MEDS: PRENATAL VITAMINS W/ FOLIC ACID TABLET (FP) PO SCH (10:13)
[2020-04-15] MEDS ORDERED: FAMOTIDINE 20 MG TABLET PO SCH (13:15)
[2020-04-15] MEDS ORDERED: DICYCLOMINE HCL 10 MG CAPSULE PO ONE (13:30)
[2020-04-15] MEDS ORDERED: POTASSIUM CHLORIDE ORAL LIQUID 20 MEQ/15 ML PO ONE ×2 (14:30→18:00)
[2020-04-15] MEDS: ONDANSETRON *ODT* 4 MG TABLET SL PRN (14:31)
[2020-04-15] MEDS ORDERED: ONDANSETRON *ODT* 4 MG TABLET SL ONE (18:22)
[2020-04-15] MEDS: THIAMINE HCL 100 MG TABLET (FP) PO SCH (22:08)
[2020-04-15] MEDS: MELATONIN 5 MG TABLETS PO SCH (22:08)
[2020-04-16] MEDS: ACETAMINOPHEN 325 MG TABLET (FP) PO PRN ×2 (03:47→18:39)
[2020-04-16] MEDS: METHOCARBAMOL 500 MG TABLET PO PRN (03:49)
[2020-04-16] MEDS: hydrOXYzine PAMOATE 25 MG CAPSULE (FP) PO SCH ×5 (05:28→22:08)
[2020-04-16] MEDS: LORazepam 1 MG TABLET PO SCH ×4 (05:28→22:08)
[2020-04-16] MEDS: PANTOPRAZOLE 40 MG TABLET PO SCH (10:15)
[2020-04-16] MEDS: PRENATAL VITAMINS W/ FOLIC ACID TABLET (FP) PO SCH (10:15)
[2020-04-16] MEDS: POTASSIUM CHLORIDE ORAL LIQUID 20 MEQ/15 ML PO SCH ×2 (14:17→22:09)
[2020-04-16] MEDS ORDERED: TRIMETHOBENZAMIDE HCL 200MG/2ML INJ IM ONE (16:53)
[2020-04-16] MEDS: MELATONIN 5 MG TABLETS PO SCH (22:08)
[2020-04-16] MEDS: THIAMINE HCL 100 MG TABLET (FP) PO SCH (22:08)
[2020-04-16] MEDS: ONDANSETRON *ODT* 4 MG TABLET SL PRN (22:45)
[2020-04-17] MEDS ORDERED: LORazepam 0.5 MG TABLET PO PRN
[2020-04-17] MEDS: hydrOXYzine PAMOATE 25 MG CAPSULE (FP) PO SCH ×5 (05:21→22:15)
[2020-04-17] MEDS: LORazepam 0.5 MG TABLET PO SCH ×4 (05:21→22:16)
[2020-04-17] MEDS: ONDANSETRON *ODT* 4 MG TABLET SL PRN ×2 (07:02→17:46)
[2020-04-17 10:20] LABS: HEMATOCRIT 42.9 % (35.4-49); HEMOGLOBIN 14.5 GM/dL (11.7-16.9); MCH 33.1 pg (25.7-33.7); MCHC 33.9 g/dl (32.0-35.9); MEAN CELL VOLUME 97.6 fl (80-96); MEAN PLT VOLUME 9.9 fl (7.5-11.1); PLATELET COUNT 91 K/MM3 (134-434); RDW 14.3 % (11.9-15.9); WHITE BLOOD COUNT 3.1 K/mm3 (4.0-10.0)
[2020-04-17 10:24] LABS: POTASSIUM 4.1 mmol/L (3.5-5.1)
[2020-04-17 10:29] LABS: ALBUMIN 4.1 g/dl (3.4-5.0); CALCIUM 9.6 mg/dL (8.5-10.1)
[2020-04-17 10:30] LABS: BLOOD UREA NITROGEN 7.5 mg/dL (7-18)
[2020-04-17 10:33] LABS: CREATININE 1.1 mg/dL (0.55-1.3)
[2020-04-17] MEDS: PRENATAL VITAMINS W/ FOLIC ACID TABLET (FP) PO SCH (10:33)
[2020-04-17] MEDS: PANTOPRAZOLE 40 MG TABLET PO SCH (10:33)
[2020-04-17] MEDS: POTASSIUM CHLORIDE ORAL LIQUID 20 MEQ/15 ML PO SCH ×2 (10:33→22:15)
[2020-04-17 10:35] LABS: BILIRUBIN,TOTAL 1.5 mg/dL (0.2-1); TOT PROT 7.6 g/dl (6.4-8.2)
[2020-04-17] MEDS ORDERED: TRIMETHOBENZAMIDE HCL 200MG/2ML INJ IM ONE ×2 (13:00→22:00)
[2020-04-17] MEDS: MELATONIN 5 MG TABLETS PO SCH (22:15)
[2020-04-17] MEDS: THIAMINE HCL 100 MG TABLET (FP) PO SCH (22:16)
[2020-04-17] MEDS: ACETAMINOPHEN 325 MG TABLET (FP) PO PRN (23:53)
[2020-04-18] MEDS: METHOCARBAMOL 500 MG TABLET PO PRN (03:10)
[2020-04-18] MEDS ORDERED: LORazepam 0.5 MG TABLET PO ONE (05:00)
[2020-04-18] MEDS: hydrOXYzine PAMOATE 25 MG CAPSULE (FP) PO SCH (05:29)
[2020-04-18 08:55] VITALS: BP 115/76; PULSE 88; TEMP 97.3
== END 2020-04-18 09:10 | disposition home or self-care (01) | DRG 775 ==
LOC: YASAS 08:20 → Y3N 09:00
PROVIDERS: ADMIT Allergy & Immunology; ATTEND Allergy & Immunology
PROC: HZ2ZZZZ Detoxification Services for Substance Abuse Treatment (ICD-10-PCS; principal; 2020-04-14)
DX: F10.230 Alcohol dependence with withdrawal, uncomplicated (principal); F10.220 Alcohol dependence with intoxication, uncomplicated; E87.6 Hypokalemia; R74.01 Elevation of levels of liver transaminase levels; R25.1 Tremor, unspecified; R11.2 Nausea with vomiting, unspecified; R19.7 Diarrhea, unspecified; K76.0 Fatty (change of) liver, not elsewhere classified; R76.11 Nonspecific reaction to tuberculin skin test without active tuberculosis; Z86.69 Personal history of other diseases of the nervous system and sense organs; Z56.0 Unemployment, unspecified
CPT/HCPCS: 36415; 80053; 84132; 85027; 86780; 87389; C9803; Q0162; U0003

== ENCOUNTER 2021-10-12 12:11 | Emergency (ER) | payer OTHER ==
[2021-10-12 12:30] VITALS: BP 115/78; PULSE 98; TEMP 98.6; BMI 28.2
[2021-10-12] MEDS ORDERED: THIAMINE HCL 200 MG/2 ML VIAL IVPB ONE (13:10)
[2021-10-12] MEDS ORDERED: SODIUM CHLORIDE 1,000 ML IV STA (13:11)
[2021-10-12] MEDS ORDERED: ONDANSETRON 4 MG/2 ML VIAL IVPUSH ONE (13:11)
[2021-10-12] MEDS ORDERED: ONDANSETRON 4 MG/2 ML VIAL ONE (13:16)
[2021-10-12] MEDS ORDERED: THIAMINE HCL 200 MG/2 ML VIAL ONE (13:16)
[2021-10-12] MEDS ORDERED: FAMOTIDINE 20 MG/50 ML IVPB 20 MG/50 ML MG IVPB ONE ×2 (13:18→13:33)
[2021-10-12] MEDS ORDERED: chlordiazePOXIDE HCL 25 MG CAPSULE PO ONE (13:18)
[2021-10-12] MEDS ORDERED: chlordiazePOXIDE HCL 25 MG CAPSULE ONE (13:33)
[2021-10-12 13:43] LABS: BASO % 0.7 % (0-2.0); EOS % 0.1 % (0-4.5); HEMATOCRIT 48.1 % (35.4-49); HEMOGLOBIN 16.1 GM/dL (11.7-16.9); LYMPH % 41.1 % (8-40); MCH 31.7 pg (25.7-33.7); MCHC 33.5 g/dl (32.0-35.9); MEAN CELL VOLUME 94.6 fl (80-96); MEAN PLT VOLUME 8.3 fl (7.5-11.1); MONO % 5.5 % (3.8-10.2); NEUT % 52.6 % (42.8-82.8); PLATELET COUNT 148 10^3/uL (134-434); RBC 5.08 M/mm3 (4.00-5.60); WHITE BLOOD COUNT 4.5 K/mm3 (4.0-10.0)
[2021-10-12 14:10] LABS: CALCIUM 8.6 mg/dL (8.5-10.1)
[2021-10-12 14:11] LABS: ALBUMIN 4.3 g/dl (3.4-5.0); BLOOD UREA NITROGEN 8.1 mg/dL (7-18)
[2021-10-12 14:15] LABS: TOT PROT 8.6 g/dl (6.4-8.2)
[2021-10-12 14:16] LABS: BILIRUBIN,TOTAL 0.7 mg/dL (0.2-1)
[2021-10-12 16:01] LABS: EPI CELLS 3 /uL (0-25.1); HYALINE CASTS 1 /uL (0-3.1); URINE APPEARANCE CLEAR; URINE BACTERIA 9 /uL (0-1359); URINE BILIRUBIN NEGATIVE (NEGATIVE); URINE COLOR YELLOW; URINE GLUCOSE (UA) NEGATIVE (NEGATIVE); URINE KETONE 2+ (NEGATIVE); URINE LEUK ESTERASE NEGATIVE (NEGATIVE); URINE NITRITE NEGATIVE (NEGATIVE); URINE PROTEIN 2+ (NEGATIVE); URINE RBC 14 /uL (0-23.9); URINE UROBILINOGEN 0.2 mg/dL (0.2-1.0); URINE WBC 2 /uL (0-25.8)
== END 2021-10-12 16:23 | disposition left against medical advice (07) ==
LOC: JER 12:11
PROC: 3E033GC Introduction of Other Therapeutic Substance into Peripheral Vein, Percutaneous Approach (ICD-10-PCS; principal; 2021-10-12)
PROC: 3E033GC Introduction of Other Therapeutic Substance into Peripheral Vein, Percutaneous Approach (ICD-10-PCS; 2021-10-12)
PROC: 3E033GC Introduction of Other Therapeutic Substance into Peripheral Vein, Percutaneous Approach (ICD-10-PCS; 2021-10-12)
PROC: 3E0337Z Introduction of Electrolytic and Water Balance Substance into Peripheral Vein, Percutaneous Approach (ICD-10-PCS; 2021-10-12)
DX: F10.10 Alcohol abuse, uncomplicated (principal)
CPT/HCPCS: 36415; 74150-TC; 80053; 80307; 81003; 84484; 85025; 87077; 87086; 93005; 93010; 99285-25

== ENCOUNTER 2021-10-16 08:00 | Inpatient (IN) | payer OTHER ==
[2021-10-16 09:24] VITALS: BMI 27.7
[2021-10-16] MEDS ORDERED: BISMUTH SUBSALICYLATE 524 MG/30 ML PO PRN (09:49)
[2021-10-16] MEDS ORDERED: ONDANSETRON *ODT* 4 MG TABLET SL PRN (09:49)
[2021-10-16] MEDS ORDERED: LOPERAMIDE HCL 2 MG CAPSULE PO PRN (09:49)
[2021-10-16] MEDS ORDERED: IBUPROFEN 400 MG TABLET (FP) PO PRN (09:49)
[2021-10-16] MEDS ORDERED: NICOTINE 10 MG CARTRIDGE (INHALER) IH PRN (09:49)
[2021-10-16] MEDS ORDERED: MAGNESIUM CITRATE 300 ML BOTTLE PO PRN (09:49)
[2021-10-16] MEDS ORDERED: ACETAMINOPHEN 325 MG TABLET (FP) PO PRN ×2 (09:49)
[2021-10-16] MEDS ORDERED: MAGNESIUM HYDROX 2400MG/30ML ORAL SUSPENSION 30 ML CUP PO PRN (09:49)
[2021-10-16] MEDS ORDERED: LORazepam 2 MG TABLET PO ONE (09:49)
[2021-10-16] MEDS ORDERED: IBUPROFEN 600 MG TABLET (FP) PO PRN (09:49)
[2021-10-16] MEDS ORDERED: BENZOCAINE/MENTHOL (CHLORASEPTIC ) LOZENGE MM PRN (09:49)
[2021-10-16] MEDS ORDERED: LORazepam 1 MG TABLET PO PRN (09:49)
[2021-10-16] MEDS ORDERED: ONDANSETRON *ODT* 4 MG TABLET ONE (10:16)
[2021-10-16] MEDS ORDERED: hydrOXYzine PAMOATE 25 MG CAPSULE (FP) PO ONE (10:16)
[2021-10-16] MEDS: hydrOXYzine PAMOATE 25 MG CAPSULE (FP) PO SCH ×4 (10:20→22:31)
[2021-10-16] MEDS: PRENATAL VITAMINS W/ FOLIC ACID TABLET (FP) PO SCH (10:20)
[2021-10-16] MEDS: LORazepam 2 MG TABLET PO SCH ×3 (18:26→22:31)
[2021-10-16] MEDS ORDERED: TRIMETHOBENZAMIDE HCL 200MG/2ML INJ IM PRN ×2 (18:38→23:44)
[2021-10-16] MEDS: DICYCLOMINE HCL 10 MG CAPSULE PO PRN (19:06)
[2021-10-16] MEDS: MELATONIN 5 MG TABLETS PO SCH (22:30)
[2021-10-16] MEDS: THIAMINE HCL 100 MG TABLET (FP) PO SCH (22:31)
[2021-10-16] MEDS: ONDANSETRON *ODT* 4 MG TABLET SL PRN (22:34)
[2021-10-17] MEDS: METHOCARBAMOL 500 MG TABLET PO PRN ×2 (02:23→22:13)
[2021-10-17] MEDS: LORazepam 2 MG TABLET PO SCH ×4 (05:34→22:13)
[2021-10-17] MEDS: hydrOXYzine PAMOATE 25 MG CAPSULE (FP) PO SCH ×5 (05:35→22:11)
[2021-10-17 10:07] LABS: HEMATOCRIT 41.2 % (35.4-49); HEMOGLOBIN 14.1 GM/dL (11.7-16.9); MCH 32.8 pg (25.7-33.7); MCHC 34.3 g/dl (32.0-35.9); MEAN CELL VOLUME 95.6 fl (80-96); MEAN PLT VOLUME 8.5 fl (7.5-11.1); PLATELET COUNT 51 10^3/uL (134-434); RBC 4.31 M/mm3 (4.00-5.60); RDW 13.9 % (11.9-15.9); WHITE BLOOD COUNT 6.6 K/mm3 (4.0-10.0)
[2021-10-17] MEDS: PRENATAL VITAMINS W/ FOLIC ACID TABLET (FP) PO SCH (10:17)
[2021-10-17 10:23] LABS: ALBUMIN 4.1 g/dl (3.4-5.0); CALCIUM 9.4 mg/dL (8.5-10.1)
[2021-10-17 10:24] LABS: BLOOD UREA NITROGEN 18.2 mg/dL (7-18)
[2021-10-17 10:27] LABS: BILIRUBIN,TOTAL 2.3 mg/dL (0.2-1)
[2021-10-17] MEDS: DICYCLOMINE HCL 10 MG CAPSULE PO PRN (17:37)
[2021-10-17] MEDS: MAG HYDROX/AL HYDROX/SIMETH 30 ML UNIT-DOSE CUP PO PRN (19:05)
[2021-10-17] MEDS: THIAMINE HCL 100 MG TABLET (FP) PO SCH (22:11)
[2021-10-17] MEDS: MELATONIN 5 MG TABLETS PO SCH (22:11)
[2021-10-18] MEDS: ONDANSETRON *ODT* 4 MG TABLET SL PRN (04:01)
[2021-10-18] MEDS: LORazepam 1 MG TABLET PO SCH ×2 (05:18→10:15)
[2021-10-18] MEDS: hydrOXYzine PAMOATE 25 MG CAPSULE (FP) PO SCH ×3 (05:19→15:30)
[2021-10-18] MEDS: PRENATAL VITAMINS W/ FOLIC ACID TABLET (FP) PO SCH (10:15)
[2021-10-18 12:57] VITALS: BP 125/87; PULSE 116; TEMP 97.7
[2021-10-18] MEDS: MAG HYDROX/AL HYDROX/SIMETH 30 ML UNIT-DOSE CUP PO PRN (15:50)
[2021-10-19] MEDS ORDERED: LORazepam 0.5 MG TABLET PO PRN
[2021-10-19] MEDS ORDERED: LORazepam 0.5 MG TABLET PO SCH (05:00)
[2021-10-20] MEDS ORDERED: LORazepam 0.5 MG TABLET PO ONE (05:00)
== END 2021-10-18 18:42 | disposition left against medical advice (07) | DRG 770 ==
LOC: YASAS 08:00 → Y3N 15:25
PROVIDERS: ADMIT Allergy & Immunology; ATTEND Surgery
PROC: HZ2ZZZZ Detoxification Services for Substance Abuse Treatment (ICD-10-PCS; principal; 2021-10-16)
DX: F10.230 Alcohol dependence with withdrawal, uncomplicated (principal); G40.909 Epilepsy, unspecified, not intractable, without status epilepticus; K76.0 Fatty (change of) liver, not elsewhere classified; R76.11 Nonspecific reaction to tuberculin skin test without active tuberculosis
CPT/HCPCS: 36415; 80053; 85027; 86780; C9803-CS; Q0162; U0003; U0005

== ENCOUNTER 2022-06-02 19:51 | Emergency (ER) | payer OTHER ==
[2022-06-02 19:59] VITALS: RESP 20; BMI 27.3
[2022-06-02] MEDS ORDERED: SODIUM CHLORIDE 0.9% 500 ML INFUS.BAG IV ONE (20:27)
[2022-06-02] MEDS ORDERED: FAMOTIDINE 20 MG/50 ML IVPB 20 MG/50 ML MG IVPB ONE ×2 (20:28→20:35)
[2022-06-02] MEDS ORDERED: MAG HYDROX/AL HYDROX/SIMETH 30 ML UNIT-DOSE CUP PO ONE (20:28)
[2022-06-02] MEDS ORDERED: ONDANSETRON 4 MG/2 ML VIAL IVPUSH ONE (20:28)
[2022-06-02] MEDS ORDERED: diazePAM CARPU-JECT 10 MG/2 ML DISP.SYRIN IVPUSH ONE (20:30)
[2022-06-02] MEDS ORDERED: LACTATED RINGERS SOLUTION 1000 ML INFUS.BAG IV ONE (20:34)
[2022-06-02] MEDS ORDERED: ONDANSETRON 4 MG/2 ML VIAL ONE (20:35)
[2022-06-02] MEDS ORDERED: diazePAM CARPU-JECT 10 MG/2 ML DISP.SYRIN ONE (20:35)
[2022-06-02] MEDS ORDERED: MAG HYDROX/AL HYDROX/SIMETH 30 ML UNIT-DOSE CUP ONE (20:35)
[2022-06-02 21:24] LABS: BASO % 0.7 % (0-2.0); EOS % 0.1 % (0-4.5); HEMATOCRIT 41.9 % (35.4-49); HEMOGLOBIN 14.7 GM/dL (11.7-16.9); LYMPH % 21.5 % (8-40); MEAN CELL VOLUME 94.2 fl (80-96); MEAN PLT VOLUME 8.1 fl (7.5-11.1); MONO % 4.5 % (3.8-10.2); NEUT % 73.2 % (42.8-82.8); PLATELET COUNT 120 10^3/uL (134-434); RBC 4.45 M/mm3 (4.00-5.60); RDW 13.4 % (11.9-15.9); WHITE BLOOD COUNT 4.9 K/mm3 (4.0-10.0)
[2022-06-02 21:31] LABS: INR 1.06 (0.83-1.09); PROTHROMBIN TIME (PATIENT) 12.3 SEC (9.7-13.0)
[2022-06-02 21:34] LABS: ACTIVATED PTT 26.4 SECONDS (25.2-36.5)
[2022-06-02 22:00] LABS: CALCIUM 8.2 mg/dL (8.5-10.1)
[2022-06-02 22:01] LABS: ALBUMIN 4.1 g/dl (3.4-5.0); BLOOD UREA NITROGEN 13.4 mg/dL (7-18)
[2022-06-02 22:04] LABS: CREATININE 0.8 mg/dL (0.55-1.3)
[2022-06-02 22:05] LABS: BILIRUBIN,TOTAL 1.3 mg/dL (0.2-1); TOT PROT 8.4 g/dl (6.4-8.2)
[2022-06-02 22:24] VITALS: PULSE 91
[2022-06-02 22:25] VITALS: BP 110/61
[2022-06-02 22:57] VITALS: TEMP 97.7
[2022-06-02] MEDS ORDERED: FOLIC ACID INJECTION - 1 MG, THIAMINE HCL 100 MG, MULTIVIT INJECTION ADULT 10 ML in SOD... IVPB ONE (23:00)
[2022-06-02] MEDS ORDERED: THIAMINE HCL 100 MG TABLET (FP) PO ONE (23:27)
[2022-06-02] MEDS ORDERED: MULTIVITAMINS (DAILY MVI) TABLET (FP) PO ONE (23:27)
[2022-06-02] MEDS ORDERED: FOLIC ACID 1 MG TABLET (FP) PO ONE (23:27)
[2022-06-02] MEDS ORDERED: chlordiazePOXIDE HCL 25 MG CAPSULE PO ONE (23:54)
== END 2022-06-03 00:18 | disposition home or self-care (01) ==
LOC: JER 19:51
PROC: 3E033GC Introduction of Other Therapeutic Substance into Peripheral Vein, Percutaneous Approach (ICD-10-PCS; principal; 2022-06-02)
DX: R07.9 Chest pain, unspecified (principal); F10.239 Alcohol dependence with withdrawal, unspecified
CPT/HCPCS: 0241U-QW; 36415; 71045-TC-FY; 73030-TC-LT-FY; 80053; 83690; 84484; 85025; 85610; 85730; 93005; 93010; 99285-25

== ENCOUNTER 2023-02-01 08:42 | Inpatient (IN) | payer OTHER ==
[2023-02-01] MEDS ORDERED: THIAMINE HCL 200 MG/2 ML VIAL IM ONE (09:09)
[2023-02-01] MEDS ORDERED: diazePAM CARPU-JECT 10 MG/2 ML DISP.SYRIN IVPUSH ONE (09:09)
[2023-02-01] MEDS ORDERED: LACTATED RINGERS SOLUTION 1000 ML INFUS.BAG IV ONE (09:15)
[2023-02-01] MEDS ORDERED: diazePAM CARPU-JECT 10 MG/2 ML DISP.SYRIN ONE ×2 (09:16→14:31)
[2023-02-01] MEDS ORDERED: THIAMINE HCL 200 MG/2 ML VIAL ONE (09:16)
[2023-02-01 09:51] LABS: LACTIC ACID 3.4 mmol/L (0.4-2.0)
[2023-02-01 10:00] LABS: BASO % 0.7 % (0-2.0); EOS % 0.2 % (0-4.5); HEMATOCRIT 40.1 % (35.4-49); HEMOGLOBIN 13.8 GM/dL (11.7-16.9); LYMPH % 34.4 % (8-40); MCHC 34.5 g/dl (32.0-35.9); MEAN CELL VOLUME 95.6 fl (80-96); MEAN PLT VOLUME 9.3 fl (7.5-11.1); MONO % 8.4 % (3.8-10.2); NEUT % 56.3 % (42.8-82.8); PLATELET COUNT 47 10^3/uL (134-434); RBC 4.19 M/mm3 (4.00-5.60); RDW 13.4 % (11.9-15.9); WHITE BLOOD COUNT 2.7 K/mm3 (4.0-10.0)
[2023-02-01 10:20] LABS: CHLORIDE 95 mmol/L (98-107); SODIUM 137 mmol/L (136-145)
[2023-02-01 10:21] LABS: VENOUS BASE EXCESS 4.8 mmol/L (-2-2); VENOUS O2 SATURATION 94.4 % (70-80); VENOUS PCO2 39.3 mmHg (38-52); VENOUS PH 7.48 (7.310-7.410)
[2023-02-01 10:22] LABS: CALCIUM 8.8 mg/dL (8.5-10.1); CO2 31 mmol/L (21-32); GLUCOSE,RANDOM 118 mg/dL (74-106); LIPASE 299 U/L (73-393)
[2023-02-01 10:24] LABS: ALBUMIN 4.1 g/dl (3.4-5.0)
[2023-02-01 10:25] LABS: CREATININE 0.8 mg/dL (0.55-1.3); SGOT/AST 137 U/L (15-37); SGPT/ALT 71 U/L (13-61)
[2023-02-01 10:27] LABS: ALK PHOS 95 U/L (45-117); BILIRUBIN,TOTAL 1.7 mg/dL (0.2-1); TOT PROT 8.5 g/dl (6.4-8.2)
[2023-02-01 10:33] LABS: N-TERMINAL BNP 34.6 pg/ml (5-125)
[2023-02-01 10:34] LABS: ANION GAP 11 MMOL/L (8-16); POTASSIUM 2.9 mmol/L (3.5-5.1)
[2023-02-01] MEDS ORDERED: POTASSIUM CHLORIDE ORAL LIQUID 20 MEQ/15 ML PO ONE ×2 (11:03→12:32)
[2023-02-01] MEDS ORDERED: POTASSIUM CHLORIDE ORAL LIQUID 20 MEQ/15 ML ONE (11:13)
[2023-02-01] MEDS ORDERED: diazePAM CARPU-JECT 10 MG/2 ML DISP.SYRIN IVPUSH PRN ×2 (12:06→14:20)
[2023-02-01] MEDS ORDERED: ENOXAPARIN NA (PORCINE) 40 MG/0.4 ML DISP.SYRIN SQ ONE (12:21)
[2023-02-01 12:29] LABS: EPI CELLS 1 /uL (0-25.1); HYALINE CASTS 0 /uL (0-3.1); URINE APPEARANCE CLEAR; URINE BACTERIA 3 /uL (0-1359); URINE BILIRUBIN NEGATIVE (NEGATIVE); URINE COLOR YELLOW; URINE GLUCOSE (UA) NEGATIVE (NEGATIVE); URINE KETONE 1+ (NEGATIVE); URINE LEUK ESTERASE NEGATIVE (NEGATIVE); URINE NITRITE NEGATIVE (NEGATIVE); URINE PROTEIN 1+ (NEGATIVE); URINE RBC 21 /uL (0-23.9); URINE UROBILINOGEN 4.0 E.U/dl mg/dL (0.2-1.0); URINE WBC 1 /uL (0-25.8)
[2023-02-01] MEDS ORDERED: diazePAM 5 MG TABLET PO SCH (12:30)
[2023-02-01] MEDS: SODIUM CHLORIDE 1,000 ML IV SCH ×2 (12:34→22:16)
[2023-02-01] MEDS ORDERED: diazePAM 5 MG TABLET ONE (12:37)
[2023-02-01] MEDS ORDERED: FOLIC ACID 1 MG TABLET (FP) ONE (13:06)
[2023-02-01 13:17] LABS: OPIATES, URI NEGATIVE (NEGATIVE); URINE AMPHETAMINES NEGATIVE (NEGATIVE); URINE BARBITURATES NEGATIVE (NEGATIVE)
[2023-02-01 13:18] LABS: PHENCYCLIDINE,URINE NEGATIVE (NEGATIVE)
[2023-02-01 13:19] LABS: METHADONE, UR NEGATIVE (NEGATIVE)
[2023-02-01 13:37] LABS: URINE BENZODIAZEPINES POSITIVE (NEGATIVE)
[2023-02-01 13:38] LABS: COCAINE, UR POSITIVE (NEGATIVE)
[2023-02-01] MEDS: FOLIC ACID 1 MG TABLET (FP) PO SCH (14:36)
[2023-02-01] MEDS ORDERED: LORazepam 1 MG TABLET PO PRN (14:42)
[2023-02-01] MEDS: LORazepam 2 MG/ML SDV VIAL IVPUSH PRN ×2 (16:12→22:49)
[2023-02-01] MEDS ORDERED: LORazepam 1 MG TABLET ONE (16:30)
[2023-02-01] MEDS: LORazepam 1 MG TABLET PO SCH ×2 (16:33→22:06)
[2023-02-01 18:05] LABS: BILIRUBIN,DIRECT 0.6 mg/dL (0.0-0.2)
[2023-02-01 21:59] LABS: INR 1.08 (0.83-1.09); PROTHROMBIN TIME (PATIENT) 12.5 SEC (9.7-13.0)
[2023-02-01 23:45] VITALS: BMI 24.2
[2023-02-02] MEDS: LORazepam 1 MG TABLET PO SCH ×4 (05:13→22:42)
[2023-02-02] MEDS ORDERED: THIAMINE HCL 200 MG/2 ML VIAL IVPB SCH (10:00)
[2023-02-02] MEDS ORDERED: ENOXAPARIN NA (PORCINE) 40 MG/0.4 ML DISP.SYRIN SQ SCH (10:00)
[2023-02-02] MEDS: FOLIC ACID 1 MG TABLET (FP) PO SCH (10:02)
[2023-02-02 11:03] LABS: INR 1.09 (0.83-1.09); PROTHROMBIN TIME (PATIENT) 12.6 SEC (9.7-13.0)
[2023-02-02 11:06] LABS: BASO % 0.7 % (0-2.0); EOS % 0.9 % (0-4.5); HEMATOCRIT 36.3 % (35.4-49); HEMOGLOBIN 12.9 GM/dL (11.7-16.9); LYMPH % 21.8 % (8-40); MCH 33.7 pg (25.7-33.7); MCHC 35.4 g/dl (32.0-35.9); MEAN CELL VOLUME 95.1 fl (80-96); MEAN PLT VOLUME 9.2 fl (7.5-11.1); MONO % 7.6 % (3.8-10.2); RBC 3.82 M/mm3 (4.00-5.60); RDW 13.5 % (11.9-15.9); WHITE BLOOD COUNT 2.9 K/mm3 (4.0-10.0)
[2023-02-02 11:26] LABS: POTASSIUM 3.2 mmol/L (3.5-5.1)
[2023-02-02 11:32] LABS: CALCIUM 8.9 mg/dL (8.5-10.1)
[2023-02-02 11:33] LABS: ALBUMIN 3.6 g/dl (3.4-5.0); BLOOD UREA NITROGEN 9.8 mg/dL (7-18)
[2023-02-02 11:34] LABS: PLATELET COUNT 35 10^3/uL (134-434)
[2023-02-02 11:35] LABS: CREATININE 0.7 mg/dL (0.55-1.3)
[2023-02-02 11:36] LABS: PHOSPHOROUS 2.5 mg/dL (2.5-4.9)
[2023-02-02 11:37] LABS: BILIRUBIN,TOTAL 2.3 mg/dL (0.2-1); TOT PROT 7.3 g/dl (6.4-8.2)
[2023-02-02] MEDS: POTASSIUM CHLORIDE TABS 20 MEQ TABLET.ER (FP) PO SCH ×2 (11:50→21:35)
[2023-02-02 12:42] LABS: HEPATITIS B SURFACE AG MATERN NON-REACTIVE (NONREACTIVE)
[2023-02-02] MEDS: SODIUM CHLORIDE 1,000 ML IV SCH (13:34)
[2023-02-03] MEDS: LORazepam 1 MG TABLET PO SCH ×4 (05:27→22:29)
[2023-02-03] MEDS ORDERED: diazePAM 5 MG TABLET PO SCH (06:00)
[2023-02-03] MEDS: FOLIC ACID 1 MG TABLET (FP) PO SCH (10:26)
[2023-02-03] MEDS: THIAMINE HCL 100 MG TABLET (FP) PO SCH (10:27)
[2023-02-03 11:09] LABS: BASO % 0.5 % (0-2.0); EOS % 2.6 % (0-4.5); HEMOGLOBIN 14.2 GM/dL (11.7-16.9); LYMPH % 21.4 % (8-40); MCH 32.8 pg (25.7-33.7); MCHC 33.9 g/dl (32.0-35.9); MEAN CELL VOLUME 96.9 fl (80-96); MEAN PLT VOLUME 9.1 fl (7.5-11.1); NEUT % 70.5 % (42.8-82.8); PLATELET COUNT 57 10^3/uL (134-434); RBC 4.33 M/mm3 (4.00-5.60); RDW 13.3 % (11.9-15.9); WHITE BLOOD COUNT 4.1 K/mm3 (4.0-10.0)
[2023-02-03 11:36] LABS: POTASSIUM 3.5 mmol/L (3.5-5.1)
[2023-02-03] MEDS: TRIMETHOBENZAMIDE HCL 200MG/2ML INJ IM PRN (11:48)
[2023-02-03 11:51] LABS: CALCIUM 9.3 mg/dL (8.5-10.1)
[2023-02-03 11:52] LABS: BLOOD UREA NITROGEN 8.1 mg/dL (7-18); MAGNESIUM 2.1 mg/dL (1.8-2.4)
[2023-02-03 11:55] LABS: BILIRUBIN,TOTAL 2.2 mg/dL (0.2-1); CREATININE 0.8 mg/dL (0.55-1.3)
[2023-02-03 11:56] LABS: TOT PROT 8.3 g/dl (6.4-8.2)
[2023-02-03] MEDS ORDERED: POTASSIUM CHLORIDE TABS 20 MEQ TABLET.ER (FP) PO ONE (12:02)
[2023-02-03] MEDS: LIDOCAINE 4% PATCH TP SCH (14:52)
[2023-02-03 15:19] VITALS: RESP 18
[2023-02-03] MEDS ORDERED: LIDOCAINE PATCH REMOVAL MC SCH (22:00)
[2023-02-04] MEDS ORDERED: LORazepam 0.5 MG TABLET PO PRN
[2023-02-04] MEDS: LORazepam 0.5 MG TABLET PO SCH ×2 (05:53→10:20)
[2023-02-04] MEDS ORDERED: diazePAM 5 MG TABLET PO SCH (06:00)
[2023-02-04 06:49] VITALS: BP 118/70; PULSE 89; TEMP 97.9
[2023-02-04] MEDS: THIAMINE HCL 100 MG TABLET (FP) PO SCH (09:17)
[2023-02-04] MEDS: LIDOCAINE 4% PATCH TP SCH (09:17)
[2023-02-04] MEDS: FOLIC ACID 1 MG TABLET (FP) PO SCH (09:17)
[2023-02-04 09:18] LABS: BASO % 0.8 % (0-2.0); EOS % 3.7 % (0-4.5); HEMATOCRIT 39.7 % (35.4-49); HEMOGLOBIN 13.6 GM/dL (11.7-16.9); LYMPH % 19.3 % (8-40); MCH 33.2 pg (25.7-33.7); MCHC 34.3 g/dl (32.0-35.9); MEAN CELL VOLUME 96.5 fl (80-96); MEAN PLT VOLUME 9.2 fl (7.5-11.1); NEUT % 67.2 % (42.8-82.8); PLATELET COUNT 59 10^3/uL (134-434); RBC 4.11 M/mm3 (4.00-5.60); RDW 13.3 % (11.9-15.9); WHITE BLOOD COUNT 3.3 K/mm3 (4.0-10.0)
[2023-02-04 09:43] LABS: POTASSIUM 3.4 mmol/L (3.5-5.1)
[2023-02-04 09:58] LABS: CALCIUM 8.8 mg/dL (8.5-10.1)
[2023-02-04 09:59] LABS: ALBUMIN 3.8 g/dl (3.4-5.0); BLOOD UREA NITROGEN 11.4 mg/dL (7-18); MAGNESIUM 1.9 mg/dL (1.8-2.4)
[2023-02-04 10:02] LABS: CREATININE 0.8 mg/dL (0.55-1.3)
[2023-02-04 10:03] LABS: BILIRUBIN,TOTAL 2.1 mg/dL (0.2-1); TOT PROT 7.5 g/dl (6.4-8.2)
[2023-02-04] MEDS ORDERED: POTASSIUM CHLORIDE TABS 20 MEQ TABLET.ER (FP) PO ONE (10:21)
[2023-02-04] MEDS: TRIMETHOBENZAMIDE HCL 200MG/2ML INJ IM PRN (10:25)
[2023-02-05] MEDS ORDERED: LORazepam 0.5 MG TABLET PO ONE (05:00)
[2023-02-05] MEDS ORDERED: diazePAM 5 MG TABLET PO ONE (06:00)
== END 2023-02-04 12:45 | disposition home or self-care (01) | DRG 775 ==
LOC: JER 08:42 → JERBED 11:45 → J8W 21:13 → OBSVTOIN 02-02 11:37
PROVIDERS: ADMIT Internal Medicine; ATTEND Nurse Practitioner Acute Care
PROC: HZ2ZZZZ Detoxification Services for Substance Abuse Treatment (ICD-10-PCS; principal; 2023-02-01)
DX: F10.239 Alcohol dependence with withdrawal, unspecified (principal); D69.6 Thrombocytopenia, unspecified; E87.6 Hypokalemia; K70.10 Alcoholic hepatitis without ascites; K70.30 Alcoholic cirrhosis of liver without ascites; K76.0 Fatty (change of) liver, not elsewhere classified; D72.829 Elevated white blood cell count, unspecified; R30.0 Dysuria; R94.5 Abnormal results of liver function studies
CPT/HCPCS: 0241U-QW; 36415; 71045-TC-FY; 74178-TC; 74181-TC; 76705-TC; 80053; 80307; 81003; 82248; 82550; 82553; 82803; 83605; 83690; 83735; 83880; 84100; 84484; 85025; 85610; 86704; 86708; 86803; 87340; 87517; 93005; 93010; 99285-25; G0378; Q9967